=== PATIENT | male | born 1985 | race Caucasian/White ===

== ENCOUNTER 2018-12-11 10:34 | Emergency (ER) | payer OTHER, SELFPAY ==
--- NOTE | 2018-12-11 10:35 | ED.RN ---
PT BROUGHT TO ED BY [facility]S [facility]PART[facility] IN HANDCUFFS. DEPUTIES STATE THAT HE IS NO LONGER OURS, AND UNCUFF HIM. DEPUTIES BRING A PINK SLIP AND ASSESSMENT FROM THE [facility]SELING [facility] WITH THEM. PT DENIES SUICIDAL IDEATION, PT STATES I WAS SO HIGH WHEN I SAID THOSE THINGS. PT DENIES ANY MEDICAL CONCERNS, SUICIDAL IDEATIONS, OR AUDITORY/VISUAL HALLUCINATIONS. DEPUTIES LEFT, AND I INFORMED THE PATIENT TO WAIT UNTIL I CALL THE [facility] TO MAKE SURE THAT THEY HAVE NO FURTHER PLANS FOR HIM. PATIENT TOOK HIS BELONGINGS AND LEFT, VERIFIED WITH SECURITY THAT PATIENT WAS OFF THE PROPERTY. [facility] MADE AWARE THAT HE LEFT, [facility] STATED THAT THEY WOULD CALL THE PATIENT'S FAMILY TO SEE WHAT THEY WOULD LIKE TO DO. [facility] STATED THAT THEY WOULD CALL BACK TO LET US KNOW FURTHER DETAIL.
--- NOTE | 2018-12-11 14:25 | ED.RN ---
PER [facility], PT'S FAMILY WAS CONTACTED AND MADE AWARE THAT HE LEFT. THEY WILL CONTACT THE [facility] IF THEY SEE OR HEAR FROM HIM.
[2018-12-11 14:37] VITALS: TEMP -17.7; TEMP 0; BMI 26.6
== END 2018-12-11 14:37 | disposition left against medical advice (07) ==
LOC: ED 10:46
PROVIDERS: Emergency Provider Emergency Medicine; Family Provider Internal Medicine; PCP Internal Medicine
DX: R69 Illness, unspecified (principal)

== ENCOUNTER 2020-12-17 17:09 | Emergency (ER) | payer MEDICAID, SELFPAY ==
[2020-12-17 17:09] VITALS: BP 148/97; PULSE 100; RESP 16; TEMP 36.2; O2SAT 100; BMI 30.2
[2020-12-17 18:07] LABS: Absolute Lymphocyte Count 1.98 X10^3/uL (0.83-4.51); Absolute Neutrophil Count 2.2 X10^3/uL (2.0-7.7); Basophil# 0.04 X10^3/uL; Basophil% 0.9 % (0-1); Eosinophil# 0.09 X10^3/uL; Eosinophils% 1.9 % (0-5); Hematocrit 43.4 % (40-54); Hemoglobin 14.3 g/dL (13.0-16.5); Lymphocyte # 1.98 X10^3/ul (0.83-4.51); Lymphocyte % 42.3 % (19-41); Mean Corp Hgb Conc 32.9 g/dL (32-36); Mean Corpuscular Hgb 30.2 pg (27.0-32.0); Mean Corpuscular Volume 91.6 fL (80-94); Mean Platelet Vol. 10.9 fl (6.2-12.0); Monocyte# 0.37 X10^3/uL; Monocyte% 7.9 % (0-10); NRBC Flagged by Analyzer 0 % (0-5); Neutrophil # 2.18 X10^3/uL (2.7-7.7); Neutrophil % 46.6 % (47-70); Platelet Count 178 K/mm3 (150-450); RBC Distribution Width CV 13.1 % (11.6-14.6); Red Blood Count 4.74 M/mm3 (4.6-6.2); White Blood Count 4.7 K/mm3 (4.4-11.0)
[2020-12-17 18:19] LABS: Anion Gap 3 (5-15); BUN 11 mg/dL (7-18); BUN/Creat Ratio 13.5 RATIO (10-20); Calcium,Total 8.8 mg/dL (8.5-10.1); Chloride 107 mmol/L (98-107); Creatinine, Serum 0.81 mg/dL (0.70-1.30); EST Glomerular Filtration Rate 114 mL/min (>60); Est Glom Filt Rate - Afr Amer 138 mL/min (>60); Estimated Creatinine Clearance 124.86 ml/min; Glucose 140 mg/dL (74-106); Sodium Level 138 mmol/L (136-145)
--- NOTE | 2020-12-17 20:08 | CT_ITS ---
EXAM: CT ABDOMEN AND PELVIS WITHOUT INTRAVENOUS CONTRAST : 1985 CLINICAL INDICATION: Right flank pain TECHNIQUE: Helically acquired images were obtained of the abdomen and pelvis without intravenous contrast. This CT exam was performed using one or more of the following dose reduction techniques: automated exposure control, adjustment of the mA and/or kV according to patient size, and/or use of iterative reconstruction technique. This report was created using [employer] report generation technology. COMPARISON: None. FINDINGS: LOWER THORAX: Unremarkable. Lung bases are clear. No cardiomegaly. No significant pericardial effusion. ABDOMEN: LIVER: Unremarkable. Homogeneous. GALLBLADDER AND BILE DUCTS: Unremarkable. No calcified gallstones. No gallbladder distention or wall edema. No intra- or extrahepatic biliary ductal dilation. PANCREAS: Unremarkable. No focal cystic mass. SPLEEN: Unremarkable. Normal size without focal cystic or solid mass. ADRENALS: Unremarkable. No nodules. KIDNEYS AND URETERS: Unremarkable. Normal renal size and position. No hydronephrosis. STOMACH AND BOWEL: There is moderate amount of stool in colon which may represent constipation. No stomach or bowel distention. No focal inflammatory change. PELVIS: APPENDIX: No evidence of acute appendicitis. BLADDER: Unremarkable. REPRODUCTIVE: Unremarkable as visualized. No mass. ABDOMEN and PELVIS: INTRAPERITONEAL SPACE: Unremarkable. No ascites or other fluid collection. No free air. BONES/JOINTS: Unremarkable. No suspicious lytic or blastic abnormality. SOFT TISSUES: Unremarkable. No discrete abdominal or pelvic wall hernia. VASCULATURE: Unremarkable. Abdominal aorta is non-dilated. LYMPH NODES: Unremarkable. No enlarged lymph nodes. CT/Abdomen/Pelvis without Cont IMPRESSION: Moderate amount of stool in the colon which may represent constipation. No other acute abnormalities are identified. Individualized dose optimization techniques were used for this CT. at 2101 Reported and signed by: Howard Hooper MD Electronically Signed: Howard Hooper MD at 21:00 EDT Tel , Service support ,
--- NOTE | 2020-12-17 20:11 | EDS_ITS ---
HPI HPI - GI History of Present Illness Chief Complaint: Flank Pain Informant: patient Abdominal Pain/Flank Pain Onset: Weeks (1) Context: Gradual Onset Timing: Continuous Quality: - (Throbbing) Location: RLQ and Right Flank Worsened by: - (Standing) Relieved by: Nothing Nausea/Vomiting/Emesis GI Symptom: Negative for Nausea and Vomiting Diarrhea/Melena/Hematochezia GI Symptom: Negative for Diarrhea, Melena and Hematochezia Associated Symptoms Associated Symptoms: Positive for Frequency; Negative for Dysuria and Hematuria Narrative Narrative: Patient presents with right flank pain that has gradually gotten worse over the past week. Patient describes the pain as throbbing. Patient states pain started in his right flank radiates into his right abdomen. Patient states pain is worse with standing. Patient denies any nausea or vomiting. Patient denies any diarrhea, melena, or hematochezia. Patient states his last bowel movement was yesterday but it was smaller than normal. Patient admits to some urinary frequency. Patient also states he has been fatigued recently. Patient admits to subjective fevers and chills and sweats. PFSH PFSH Medical History (Updated 12/17/20 @ 21:[address] Eder Castro DO) Substance abuse Medical History no medical history no medical history Home Medications buprenorphine-naloxone [Zubsolv] 1 tab SUBLINGUAL DAILY 12/17/20 [History Last Taken Unknown] quetiapine 300 mg PO DAILY 12/17/20 [History Last Taken Unknown] quetiapine 600 mg PO QHS 12/17/20 [History Last Taken Unknown] Allergy/AdvReac Type Severity Reaction Status Date / Time No Known Allergies Allergy Verified 12/17/20 17:11 Surgical History (Updated 12/17/20 @ 20:[address] Eder Castro DO) Hx of hand surgery Social History Smoking Status: Current every day smoker tobacco type: cigarettes ROS ROS ED Constitutional Constitutional ED: Reports chills, fever(s), subjective and sweats Eyes Eyes: Denies blurry vision or change in vision ENT ENT ED: Denies rhinorrhea or sore throat Cardiovascular Cardiovascular: Denies chest pain or palpitations Respiratory/Chest Respiratory/Chest: Denies cough or dyspnea Gastrointestinal Gastrointestinal: Reports abdominal pain; Denies nausea or vomiting Genitourinary Genitourinary ED: Reports urinary frequency; Denies dysuria or hematuria Musculoskeletal Musculoskeletal: Reports back pain; Denies neck pain Integumentary Denies abscess or rash Neurologic Neurologic: Denies headache(s) or weakness Allergic/Immunologic Allergic/Immunologic ED: Denies mouth swelling or urticaria EXAM Physical Exam Const Vital Signs: 12/17/20 17:09 12/17/20 20:26 Temperature 97.2 F L 98.2 F Temperature Source Temporal Temporal Pulse Rate 100 87 Respiratory Rate 16 16 Blood Pressure 148/97 H 141/96 H Blood Pressure Mean 114 111 Pulse Ox 100 100 Oxygen Delivery Method Room Air Room Air Positive well nourished and well developed General Appearance ED: well developed HEENT Reports moist mucous membranes Neck supple and no JVD Resp normal respiratory effort and clear to auscultation bilaterally Cardio regular rate, regular rhythm and no murmurs GI normal to inspection, nondistended, normoactive bowel sounds and non-distended Auscultation: normoactive bowel sounds Palpation: soft and tender RLQ; Negative for guarding or rebound tenderness present Back/Spine General Back: CVA tenderness right Extremity normal to inspection General Extremety ED: Negative for edema or tenderness General Extremity: Negative for edema Neuro oriented x3, CN's II-XII intact bilaterally and no sensory deficits noted Sensorium / Orientation: alert Motor Exam: strength 5/5 throughout Psych mental status grossly normal Skin no rashes or lesions noted MDM MDM MDM Narrative Medical decision making narrative: CBC and basic metabolic profile were within normal limits. Urinalysis does not show any evidence of urinary tract infection or hematuria. CT scan of the abdomen pelvis was obtained. There is constipation but there is no evidence of bowel obstruction or ureteral calculus. There is no other acute abnormality noted. This was interpreted by the radiologist and reviewed by myself. Patient was advised of his findings. Kaur ent was instructed to use [id number] MiraLAX as needed. Patient was instructed to follow-up with his primary care physician in 5 to 7 days. Patient understood and was agreeable with the plan. All questions were answered. Lab Data Attestation: I reviewed the patient's lab results. Labs: Laboratory Results - last 24 hr 12/17/20 12/17/20 12/17/20 17:50 17:50 20:20 WBC 4.7 RBC 4.74 Hgb 14.3 Hct 43.4 MCV 91.6 MCH 30.2 MCHC 32.9 RDW Std Deviation 44.0 H RDW Coeff of Mook 13.1 Plt Count 178 MPV 10.9 Immature Gran % (Auto) 0.400 Neut % (Auto) 46.6 L Lymph % (Auto) 42.3 H Edmunds % (Auto) 7.9 Eos % (Auto) 1.9 Baso % (Auto) 0.9 Absolute Neuts (auto) 2.2 Absolute Lymphs (auto) 1.98 Nucleated RBC % 0 Sodium 138 Potassium 4.0 Chloride 107 Carbon Dioxide 28.0 Anion Gap 3 L BUN 11 Creatinine 0.81 Estim Creat Clear Calc 124.86 Est GFR (MDRD) Af Amer 138 Est GFR (MDRD) Non-Af 114 BUN/Creatinine Ratio 13.5 Glucose 140 H Calcium 8.8 Urine Color Yellow Urine Clarity Clear Urine pH 6.0 Ur Specific [place] 1.020 Urine Protein 15 H Urine Glucose (UA) Normal Urine Ketones Negative Urine Occult Blood Negative Urine Nitrite Negative Urine Bilirubin Negative Urine Urobilinogen 1 H Ur Leukocyte Esterase 25 H Urine RBC 0 SEEN Urine WBC 0-5 SEEN Ur Squamous Epith Cells 0 SEEN Urine Bacteria RARE Urine Mucus 0 SEEN Radiography Diagnostic Testing: Radiology Impression Abdomen/Pelvis CT 12/17/20 20:08 IMPRESSION: Moderate amount of stool in the colon which may represent constipation. No other acute abnormalities are identified. Individualized dose optimization techniques were used for this CT. at 2101 Reported and signed by: Howard Hooper MD Electronically Signed: Howard Hooper MD at 21:00 EDT Tel , Service support , Discharge Plan Triage Chief Complaint: Flank Pain ED Provider: Eder Castro Dx/Rx/DC Orders Clinical Impression: Constipation Instructions: ED Constipation (Adult) Prescriptions: No Action quetiapine 300 mg tablet 300 mg PO DAILY RF: 0 quetiapine 300 mg tablet 600 mg PO QHS RF: 0 Zubsolv 8.6-2.1 mg tablet, sublingual 1 tab SUBLINGUAL DAILY RF: 0 Stand Alone Forms: ED Work / School Excuse Primary Care Provider: Care Physician,No Primary Referrals: Elmer Aguirre MD [STAFF PHYSICIAN] - 5-7 Days Care Physician,No Primary [Primary Care Provider] - Disposition Disposition: Home, Self Care
[2020-12-17 20:26] VITALS: BP 141/96; PULSE 87; RESP 16; TEMP 36.8; O2SAT 100
[2020-12-17 20:28] LABS: Mucous, Urine 0 SEEN /hpf (<or=2+); Red Blood Cells-Urine 0 SEEN /hpf (0-5); Squamous Epithelial Cells - UA 0 SEEN /hpf (0-5)
[2020-12-17 20:32] LABS: Color, Urine Yellow (Yellow); Glucose, Dipstick Normal (Normal); Ketone-Dipstick Negative (Negative); Leukocyte Esterase-Dipstick 25 /ul (Negative); Nitrite-Dipstick Negative (Negative); Occult Blood-Urine Negative /ul (Negative); Protein-Dipstick 15 mg/dl (Negative); Urine Bilirubin Dipstick Negative (Negative); Urine Clarity Clear (Clear); Urine Urobilinogen 1 mg/dl (Normal)
[2020-12-17 20:57] LABS: Bacteria RARE /hpf (None Seen); White Blood Cells 0-5 SEEN /hpf (0-5)
== END 2020-12-17 21:49 | disposition home or self-care (01) ==
PROVIDERS: Emergency Provider Emergency Medicine
DX: K59.00 Constipation, unspecified (principal); F17.210 Nicotine dependence, cigarettes, uncomplicated
CPT/HCPCS: 74176; 80048; 81001; 85025; 99283; A4216

== ENCOUNTER 2021-01-03 14:09 | Emergency (ER) | payer MEDICAID, SELFPAY ==
[2021-01-03 14:09] VITALS: BP 136/84; PULSE 125; RESP 20; TEMP 36; O2SAT 97; BMI 31.4
--- NOTE | 2021-01-03 15:04 | EX.ED.DYSGE1 ---
HPI History of Present Illness Chief Complaint: General Illness Informant: patient Narrative Narrative: 35-year-old male states that yesterday he began to experience hot and cold flashes sweats mild cough dry mouth and notes that things are not tasting like they should. He denies any nausea diarrhea or shortness of breath. He is unvaccinated against COVID-19 [facility] Medical History (Updated 01/03/21 @ 16:[address] Jose G Arenas DO) Hepatitis C Substance abuse Home Medications buprenorphine-naloxone [Zubsolv] 1 tab SUBLINGUAL DAILY 12/17/20 [History Last Taken Unknown] quetiapine 300 mg PO DAILY 12/17/20 [History Last Taken Unknown] quetiapine 600 mg PO QHS 12/17/20 [History Last Taken Unknown] Allergy/AdvReac Type Severity Reaction Status Date / Time No Known Allergies Allergy Verified 01/03/21 15:43 Surgical History Hx of hand surgery Social History (Updated 01/03/21 @ 15:[address] Jose G Arenas DO) Smoking Status: Current every day smoker tobacco type: cigarettes substance use type: former substance user and opiates ROS ROS ED ROS Narrative Fatigue Constitutional Constitutional ED: Reports chills, subjective and sweats; Denies weight loss Eyes Eyes: Denies change in vision or diplopia ENT ENT ED: Reports other Details: Dry mouth change in taste ; Denies ear pain, rhinorrhea or sore throat Cardiovascular Cardiovascular: Denies chest pain, orthopnea, palpitations or racing heartbeat Respiratory/Chest Respiratory/Chest: Denies cough, dyspnea or orthopnea Gastrointestinal Gastrointestinal: Denies abdominal pain, diarrhea, nausea or vomiting Genitourinary Genitourinary ED: Denies dysuria, hematuria or urinary frequency Musculoskeletal Musculoskeletal: Denies arthralgias or myalgias Integumentary Denies abscess or rash Neurologic Neurologic: Denies headache(s) or weakness Psychiatric Psychiatric: Denies anxiety, depression, suicidal ideation or suicidal thoughts Endocrine Endocrinology: Denies polydipsia, polyphagia or polyuria Allergic/Immunologic Allergic/Immunologic ED: Denies mouth swelling, tongue swelling or urticaria EXAM Physical Exam Const Vital Signs: 01/03/21 14:09 Temperature 96.8 F L Temperature Source Temporal Pulse Rate 125 H Respiratory Rate 20 H Blood Pressure 136/84 H Blood Pressure Mean 101 Pulse Ox 97 Oxygen Delivery Method Room Air Positive well nourished, well developed and obese General Appearance ED: well developed Nutritional Appearance: obese HEENT Reports normocephalic, head/scalp atraumatic and moist mucous membranes Eyes PERRL and EOMs intact bilaterally Neck no lymphadenopathy, supple and no JVD Resp normal respiratory effort and clear to auscultation bilaterally Cardio regular rate and no murmurs Rate: tachycardic GI normal to inspection, nondistended, normoactive bowel sounds and non-tender Palpation: soft Back/Spine no CVA tenderness and normal ROM Extremity normal to inspection General Extremety ED: Negative for edema General Extremity: Negative for edema Neuro oriented x3 and CN's II-XII intact bilaterally Sensorium / Orientation: alert Motor Exam: strength 5/5 throughout Psych mental status grossly normal Mood & Affect: Negative for depressed or tearful Skin no rashes or lesions noted and no wounds MDM MDM MDM Narrative Medical decision making narrative: Rapid Covid is negative. Patient was advised that this may be a false negative as he is very early on in his symptomology. He was advised that he should monitor himself and avoid close contact. Return if worsening or concerns Discharge Plan Triage Chief Complaint: General Illness ED Provider: Jose G Arenas Dx/Rx/DC Orders Clinical Impression: Acute viral syndrome Instructions: ED Viral Syndrome (Adult) Prescriptions: No Action quetiapine 300 mg tablet 300 mg PO DAILY RF: 0 quetiapine 300 mg tablet 600 mg PO QHS RF: 0 Zubsolv 8.6-2.1 mg tablet, sublingual 1 tab SUBLINGUAL DAILY RF: 0 Primary Care Provider: Care Physician,No Primary Referrals: Sujata Regan MD [STAFF PHYSICIAN] - As Needed (for primary care) Care Physician,No Primary [Primary Care Provider] - Disposition Disposition: Home, Self Care
== END 2021-01-03 16:20 | disposition home or self-care (01) ==
PROVIDERS: Emergency Provider Emergency Medicine
DX: B34.9 Viral infection, unspecified (principal); F17.210 Nicotine dependence, cigarettes, uncomplicated; E66.9 Obesity, unspecified
CPT/HCPCS: 87426; 99282

== ENCOUNTER 2021-03-23 08:23 | Emergency (ER) | payer MEDICAID, SELFPAY ==
[2021-03-23 08:24] VITALS: BP 164/95; PULSE 116; RESP 16; TEMP 37.1; O2SAT 96; BMI 31.9
--- NOTE | 2021-03-23 09:20 | EX.ED.DYSGE1 ---
HPI History of Present Illness Chief Complaint: General Illness Informant: patient Narrative Narrative: Patient presents with about 3 days of nasal congestion, mild sore throat, he is developing a very slight cough but is not short of breath. No sputum production. No nausea vomiting diarrhea. He still has taste and smell. He has minimal headache. He does have slight myalgias. He did not get Covid vaccine. He has been around people at work who he is pretty sure have had Covid. PFSH PFSH Medical History Hepatitis C Substance abuse Home Medications buprenorphine-naloxone [Zubsolv] 1 tab SUBLINGUAL DAILY 12/17/20 [History Last Taken Unknown] quetiapine 300 mg PO DAILY 12/17/20 [History Last Taken Unknown] quetiapine 600 mg PO QHS 12/17/20 [History Last Taken Unknown] Allergy/AdvReac Type Severity Reaction Status Date / Time No Known Allergies Allergy Verified 03/23/21 08:27 Surgical History Hx of hand surgery Social History Smoking Status: Current every day smoker tobacco type: cigarettes substance use type: former substance user and opiates ROS ROS ED Constitutional Constitutional ED: Reports chills ENT ENT ED: Reports rhinorrhea and sore throat Cardiovascular Cardiovascular: Denies chest pain or palpitations Respiratory/Chest Respiratory/Chest: Reports cough; Denies dyspnea or sputum Gastrointestinal Gastrointestinal: Denies diarrhea, nausea or vomiting Genitourinary Genitourinary ED: Denies dysuria Musculoskeletal Musculoskeletal: Reports myalgias Integumentary Denies rash Neurologic Neurologic: Reports headache(s); Denies paresthesias or weakness Endocrine Endocrinology: Denies polydipsia or polyuria Allergic/Immunologic Allergic/Immunologic ED: Denies mouth swelling or urticaria EXAM Physical Exam Const Vital Signs: 03/23/21 08:24 03/23/21 08:37 Temperature 98.8 F Temperature Source Oral Pulse Rate 116 H Respiratory Rate 16 Respiratory Effort Normal Non-Labored Respiratory Pattern Irregular Blood Pressure 164/95 H Blood Pressure Mean 118 Pulse Ox 96 Oxygen Delivery Method Room Air Positive well nourished and well developed General Appearance ED: well developed and NAD; Negative for cyanotic or diaphoretic HEENT Reports moist mucous membranes HEENT Narrative: Oropharynx is clear. There is no exudate. Swallowing is normal. Negative for trauma Eyes EOMs intact bilaterally Neck no lymphadenopathy, supple and no JVD Chest Wall inspection of chest normal Resp normal respiratory effort and clear to auscultation bilaterally Effort and Inspection: Negative for pain with movement Auscultation: Negative for rales, rhonchi or wheezes Cardio regular rate and regular rhythm Rate: other Other Details: Heart rate is actually regular at this time. His rate is about 85-90 while sitting on the side of the bed. GI normal to inspection, nondistended, normoactive bowel sounds and non-tender Palpation: soft Back/Spine no CVA tenderness Extremity normal to inspection General Extremety ED: Negative for edema or tenderness General Extremity: Negative for edema Neuro Sensorium / Orientation: alert Psych mental status grossly normal Skin no rashes or lesions noted MDM MDM MDM Narrative Medical decision making narrative: Patient's Covid antigen test is negative. I explained to the patient that this can miss up to 15% of Covid positive people. He should return if he develops dyspnea, worsening fevers or other concerning symptoms. He should still distance himself from others and limit contact. Lab Data Attestation: I reviewed the patient's lab results. Discharge Plan Triage Chief Complaint: General Illness ED Provider: Ervin Croft Dx/Rx/DC Orders Clinical Impression: URI (upper respiratory infection) Instructions: ED URI, Viral, No Abx (Adult) Prescriptions: No Action quetiapine 300 mg tablet 300 mg PO DAILY RF: 0 quetiapine 300 mg tablet 600 mg PO QHS RF: 0 Zubsolv 8.6-2.1 mg tablet, sublingual 1 tab SUBLINGUAL DAILY RF: 0 Primary Care Provider: Care Physician,No Primary Referrals: Lauri Krueger DO [STAFF PHYSICIAN] - 3-5 Days if not improving Care Physician,No Primary [Primary Care Provider] - Disposition Disposition: Home, Self Care
== END 2021-03-23 10:34 | disposition home or self-care (01) ==
PROVIDERS: Emergency Provider Emergency Medicine
DX: J06.9 Acute upper respiratory infection, unspecified (principal); F17.210 Nicotine dependence, cigarettes, uncomplicated; Z79.899 Other long term (current) drug therapy
CPT/HCPCS: 87426; 99282

== ENCOUNTER 2021-05-10 14:31 | Emergency (ER) | payer MEDICAID, SELFPAY ==
[2021-05-10 14:31] VITALS: BP 150/81; PULSE 102; RESP 15; TEMP 36.3; O2SAT 98; BMI 32.1
--- NOTE | 2021-05-10 15:16 | EX.ED.DYSGE1 ---
HPI History of Present Illness Chief Complaint: Ear Problem Informant: patient Onset/Context/Timing Onset: Days (5 to 6 days) Context: Gradual Onset Current Severity: Mild Maximum Severity: Moderate Narrative Narrative: Patient presents with left ear pain. He states he feels like his ear is blocked. It started after he cleaned his ear out with a Q-tip. He thought he had pushed some wax back next to the eardrum. He tried rinsing it out with hydrogen peroxide. He was seen at urgent care on Tuesday and told he had swimmer's ear. He was given some eardrops. He presents today because he has not noticed any improvement. He denies other URI symptoms. [facility] Medical History Hepatitis C Substance abuse Home Medications buprenorphine-naloxone [Zubsolv] 1 tab SUBLINGUAL DAILY 12/17/20 [History Last Taken Unknown] quetiapine 300 mg PO DAILY 12/17/20 [History Last Taken Unknown] quetiapine 600 mg PO QHS 12/17/20 [History Last Taken Unknown] amoxicillin-pot clavulanate 1 tab PO BID #20 tab 05/10/21 [Rx Last Taken Unknown] Allergy/AdvReac Type Severity Reaction Status Date / Time No Known Allergies Allergy Verified 05/10/21 14:34 Surgical History Hx of hand surgery Social History Smoking Status: Current every day smoker tobacco type: cigarettes substance use type: former substance user and opiates ROS ROS ED Constitutional Constitutional ED: Denies chills or fever(s) Eyes Eyes: Denies change in vision ENT ENT ED: Reports ear pain left; Denies sore throat Cardiovascular Cardiovascular: Denies chest pain Respiratory/Chest Respiratory/Chest: Denies cough or dyspnea Gastrointestinal Gastrointestinal: Denies abdominal pain, nausea or vomiting Genitourinary Genitourinary ED: Denies dysuria Musculoskeletal Musculoskeletal: Denies back pain or neck pain Integumentary Denies rash Neurologic Neurologic: Denies headache(s) or weakness Allergic/Immunologic Allergic/Immunologic ED: Denies urticaria EXAM Physical Exam Const Vital Signs: 05/10/21 14:31 Temperature 97.4 F L Temperature Source Temporal Pulse Rate 102 H Respiratory Rate 15 Blood Pressure 150/81 H Blood Pressure Mean 104 Pulse Ox 98 Oxygen Delivery Method Room Air Positive well nourished and well developed General Appearance ED: well developed HEENT HEENT Narrative: Yellow fluid behind the TM on the left. Canal normal. Eyes PERRL and EOMs intact bilaterally Neck no lymphadenopathy and supple Chest Wall inspection of chest normal and palpation of chest normal Resp normal respiratory effort and clear to auscultation bilaterally Cardio regular rate and regular rhythm GI non-tender Palpation: soft Neuro oriented x3 Sensorium / Orientation: alert Psych mental status grossly normal Skin no rashes or lesions noted MDM MDM Treatment and Re-Evaluation Comments:: Patient has evidence of otitis media. He will treat with a course of Augmentin, first dose given here. Referred to Dr. Alfred, rupal on no doc list for follow-up. Discharge Plan Triage Chief Complaint: Ear Problem ED Provider: Danielle Hackett Dx/Rx/DC Orders Clinical Impression: Otitis media Instructions: ED Otitis Media Antibiotic ... Prescriptions: New amoxicillin-pot clavulanate 875-125 mg tablet 1 tab PO BID Qty: 20 RF: 0 No Action quetiapine 300 mg tablet 300 mg PO DAILY RF: 0 quetiapine 300 mg tablet 600 mg PO QHS RF: 0 Zubsolv 8.6-2.1 mg tablet, sublingual 1 tab SUBLINGUAL DAILY RF: 0 Stand Alone Forms: ED Work / School Excuse Primary Care Provider: Care Physician,No Primary Referrals: Deja Alfred DO [STAFF PHYSICIAN] - 1-2 Weeks Care Physician,No Primary [Primary Care Provider] - Disposition Disposition: Home, Self Care
[2021-05-10] MEDS: Amox/Clavulanate 875 MG Tablet PO (15:45)
== END 2021-05-10 23:59 | disposition home or self-care (01) ==
PROVIDERS: Emergency Provider Emergency Medicine; Visit Provider Emergency Medicine
DX: H66.92 Otitis media, unspecified, left ear (principal); F17.210 Nicotine dependence, cigarettes, uncomplicated
CPT/HCPCS: 99283

== ENCOUNTER 2021-10-13 13:21 | Emergency (ER) | payer MEDICAID, SELFPAY ==
[2021-10-13 13:22] VITALS: BP 140/83; PULSE 112; RESP 18; TEMP 36.7; O2SAT 97; BMI 30.4
--- NOTE | 2021-10-13 13:32 | EKG12_ITS ---
Test Reason : CP Blood Pressure : / mmHG Vent. Rate : 096 BPM Atrial Rate : 096 BPM P-R Int : 162 ms QRS Dur : 080 ms QT Int : 358 ms P-R-T Axes : 042 039 025 degrees QTc Int : 452 ms Normal sinus rhythm Nonspecific T wave abnormality Abnormal ECG Confirmed by MORA NGUYEN, VIRAJ ([id number]), photograph editor YAZ LUDWIG ([id number]) on 10/16/2021 7:57:34 AM Referred By: Vicente Confirmed By:VIRAJ VELAZCO MD
--- NOTE | 2021-10-13 13:34 | ED.VIS.CHEST ---
HPI <Dr. Vickie Zhang DO - Last Filed: 10/14/21 10:28> History of Present Illness Chief Complaint: Chest Pain Informant: patient Narrative Narrative: Patient is a 35-year-old male with history of opioid dependency currently on buprenorphine/naloxone presenting from work via EMS for chest pain. Patient states he developed what he felt to be heartburn prior to this starting. He then does developed pressure in his left chest that is intermittent. He states it radiates to his shoulder. It last for 4 to 5 minutes at a time. It sharp and dull. Denies associated diaphoresis, nausea, vomiting or symptoms. Is never anything like this before. Does have a very strong history of coronary artery disease and his family. States his mom started having heart problems when she was in her 30s. States he just wanted make sure he was not having a heart attack. Did receive aspirin and nitro in route via EMS. States he thinks he is feeling better now. Notes that he does not have AC with work and has been hot. Prior Similar Symptoms: No Recent Illness/Hospitalization: No CVD Risk Factors: Positive for Family History 1' </=55 PE Risk Factors: Negative for Recent Travel/Surgery, Recent Immobilization, Prior DVT or PE, Cancer or OCP + Smoking + >/=35 PFSH <Dr. Vickie Zhang DO - Last Filed: 10/14/21 10:28> PFSH Medical History Hepatitis C Substance abuse Home Medications buprenorphine 8.6 mg-naloxone 2.1 mg sublingual tablet (Zubsolv) 1 tab sublingual DAILY 12/17/20 [History Last Taken Unknown] quetiapine 300 mg tablet 300 mg PO TID 12/17/20 [History Last Taken Unknown] Allergy/AdvReac Type Severity Reaction Status Date / Time No Known Allergies Allergy Verified 10/13/21 13:26 Surgical History Hx of hand surgery Social History Smoking Status: Current every day smoker tobacco type: cigarettes substance use type: former substance user and opiates ROS <Dr. Vickie Zhang DO - Last Filed: 10/14/21 10:28> ROS ED Constitutional Constitutional ED: Denies chills, fever(s) or sweats Eyes Eyes: Denies change in vision ENT ENT ED: Denies rhinorrhea or sore throat Cardiovascular Cardiovascular: Reports chest pain; Denies palpitations or racing heartbeat Respiratory/Chest Respiratory/Chest: Denies cough or dyspnea Gastrointestinal Gastrointestinal: Denies abdominal pain, nausea or vomiting Genitourinary Genitourinary ED: Denies dysuria Musculoskeletal Musculoskeletal: Denies arthralgias or myalgias Integumentary Denies rash Neurologic Neurologic: Denies headache(s) or weakness Psychiatric Psychiatric: Denies anxiety EXAM <Dr. Vickie Zhang, DO - Last Filed: 10/14/21 10:28> Physical Exam Const Vital Signs: 10/13/21 13:22 10/13/21 13:27 10/13/21 13:32 Temperature 98.0 F Temperature Source Temporal Pulse Rate 112 H Respiratory Rate 18 Respiratory Effort Normal Non-Labored Blood Pressure 140/83 H Blood Pressure Mean 102 Pulse Ox 97 Oxygen Delivery Method Room Air Room Air 10/13/21 14:21 10/13/21 15:00 10/13/21 16:00 Temperature Temperature Source Pulse Rate 76 75 76 Respiratory Rate 14 16 20 H Respiratory Effort Blood Pressure 130/78 H 129/87 H 128/93 H Blood Pressure Mean 95 101 104 Pulse Ox 99 100 99 Oxygen Delivery Method Room Air Room Air Room Air 10/13/21 17:00 10/13/21 17:41 Temperature Temperature Source Pulse Rate 77 Respiratory Rate 18 18 Respiratory Effort Blood Pressure 144/88 H Blood Pressure Mean 106 Pulse Ox 99 Oxygen Delivery Method Room Air Positive well nourished and well developed General Appearance ED: well developed and NAD HEENT Reports moist mucous membranes normocephalic and atraumatic Eyes PERRL and EOMs intact bilaterally Neck supple Chest Wall inspection of chest normal and palpation of chest normal Chest Narrative: No reproducible tenderness to palpation Resp normal respiratory effort and clear to auscultation bilaterally Auscultation: Negative for rhonchi or wheezes Cardio regular rhythm and no murmurs Rate: tachycardic GI normal to inspection, nondistended, normoactive bowel sounds, soft to palpation and non-tender Back/Spine no CVA tenderness Extremity normal to inspection General Extremety ED: Negative for edema or pulses abnormal General Extremity: Negative for edema or pulses abnormal Neuro oriented x3 Motor Exam: Negative for general weakness Psych mental status grossly normal Skin no rashes or lesions noted <Dr. Rob Perry, DO - Last Filed: 10/13/21 17:16> Physical Exam Const Vital Signs: 10/13/21 13:22 10/13/21 13:27 10/13/21 13:32 Temperature 98.0 F Temperature Source Temporal Pulse Rate 112 H Respiratory Rate 18 Respiratory Effort Normal Non-Labored Blood Pressure 140/83 H Blood Pressure Mean 102 Pulse Ox 97 Oxygen Delivery Method Room Air Room Air 10/13/21 14:21 10/13/21 15:00 10/13/21 16:00 Temperature Temperature Source Pulse Rate 76 75 76 Respiratory Rate 14 16 20 H Respiratory Effort Blood Pressure 130/78 H 129/87 H 128/93 H Blood Pressure Mean 95 101 104 Pulse Ox 99 100 99 Oxygen Delivery Method Room Air Room Air Room Air 10/13/21 17:00 10/13/21 17:41 Temperature Temperature Source Pulse Rate 77 Respiratory Rate 18 18 Respiratory Effort Blood Pressure 144/88 H Blood Pressure Mean 106 Pulse Ox 99 Oxygen Delivery Method Room Air <Dr. Vickie Zhang, DO - Last Filed: 10/14/21 10:28> Heart Score History: Slightly/Non-Suspicious Age: </= 43 years Risk Factors: 1 or 2 Risk Factors Troponin: </= Normal Limit Score: 1 <Dr. Rob Perry, DO - Last Filed: 10/13/21 17:16> Heart Score Score: 1 MDM <Dr. Vickie Zhang, DO - Last Filed: 10/14/21 10:28> MDM MDM Narrative Medical decision making narrative: Patient is evaluated for intermittent chest pain. On the left upper chest. Vital signs are significant for tachycardia. He has no other risk factors for PE and will obtain a D-dimer. Will obtain delta high-sensitivity troponins. Lab Data Attestation: I reviewed the patient's lab results. Lab results narrative: Patient is evaluated with intermittent chest pain. Started this morning. Currently is relatively asymptomatic. Is tachycardic upon arrival but that improved with IV fluids. His only risk factor for PE is his tachycardia so D-dimer was obtained. This is normal at 0.30. High since he troponin initially is less than 3. TSH is normal. Chest x-ray interpreted myself as well as radiology is normal. Will obtain repeat high-sensitivity troponin because of the intermittent nature and sudden onset of his symptoms. Anticipate if this is normal patient can be discharged home with outpatient follow-up. Is given referral for primary care doctor as he does not currently follow with 1. This time I do not think he requires admission for his chest pain. Labs: Laboratory Results - last 24 hr 10/13/21 10/13/21 10/13/21 13:05 13:05 13:05 WBC 7.0 RBC 4.39 L Hgb 13.6 Hct 39.2 L MCV 89.3 MCH 31.0 MCHC 34.7 RDW Std Deviation 41.8 RDW Coeff of Mook 12.8 Plt Count 183 MPV 11.3 Immature Gran % (Auto) 0.300 Neut % (Auto) 50.6 Lymph % (Auto) 38.4 [place] % (Auto) 8.3 Eos % (Auto) 2.0 Baso % (Auto) 0.4 Absolute Neuts (auto) 3.5 Absolute Lymphs (auto) 2.68 Nucleated RBC % 0 D-Dimer Quant (PE/DVT) 0.30 Sodium 137 Potassium 3.9 Chloride 104 Carbon Dioxide 28.0 Anion Gap 5 BUN 18 Creatinine 0.90 Estim Creat Clear Calc 108.72 Est GFR (MDRD) Af Amer 121 Est GFR (MDRD) Non-Af 100 BUN/Creatinine Ratio 20.0 Glucose 134 H Calcium 9.2 Magnesium 2.1 Troponin I High Sens < 3 L TSH 2.95 10/13/21 16:22 WBC RBC Hgb Hct MCV MCH MCHC RDW Std Deviation RDW Coeff of Mook Plt Count MPV Immature Gran % (Auto) Neut % (Auto) Lymph % (Auto) [place] % (Auto) Eos % (Auto) Baso % (Auto) Absolute Neuts (auto) Absolute Lymphs (auto) Nucleated RBC % D-Dimer Quant (PE/DVT) Sodium Potassium Chloride Carbon Dioxide Anion Gap BUN Creatinine Estim Creat Clear Calc Est GFR (MDRD) Af Amer Est GFR (MDRD) Non-Af BUN/Creatinine Ratio Glucose Calcium Magnesium Troponin I High Sens < 3 L TSH Radiography Chest X-Ray - ED: 1 View, Read by ED Physician, Read by Radiologist and No Acute Disease Diagnostic Testing: Clinical Impression(s) from Imaging Studies Chest X-Ray 10/13/21 13:42 IMPRESSION: Normal x-ray examination of the chest. Electronically Signed: Mario Morris MD at 14:03 EDT , Rhythm Strip Rhythm Strip: Sinus Rhythm Rate: 96 Ectopy: None EKG Initial EKG: Attestation: I personally reviewed and interpreted this EKG as follows: Interpretation: Sinus Rhythm Comments: Normal sinus rhythm at a rate of 96 Normal axis Normal intervals Normal ST segments Prior EKG tracings: available for review Prior: Unchanged <Dr. Rob Perry, DO - Last Filed: 10/13/21 17:16> [facility] Lab Data Lab results narrative: Patient is evaluated with intermittent chest pain. Started this morning. Currently is relatively asymptomatic. Is tachycardic upon arrival but that improved with IV fluids. His only risk factor for PE is his tachycardia so D-dimer was obtained. This is normal at 0.30. High since he troponin initially is less than 3. TSH is normal. Chest x-ray interpreted myself as well as radiology is normal. Will obtain repeat high-sensitivity troponin because of the intermittent nature and sudden onset of his symptoms. Anticipate if this is normal patient can be discharged home with outpatient follow-up. Is given referral for primary care doctor as he does not currently follow with 1. This time I do not think he requires admission for his chest pain. Patient signed out to me pending delta troponin. I did review the patient's work-up and agree with previous ED physician. Delta troponin returned at less than 3. Given this I feel the patient safe for discharge. He was counseled of this and return precautions were given. Patient stable discharge. Impression: 1. Chest pain Labs: Laboratory Results - last 24 hr 10/13/21 10/13/21 10/13/21 13:05 13:05 13:05 WBC 7.0 RBC 4.39 L Hgb 13.6 Hct 39.2 L MCV 89.3 MCH 31.0 MCHC 34.7 RDW Std Deviation 41.8 RDW Coeff of Mook 12.8 Plt Count 183 MPV 11.3 Immature Gran % (Auto) 0.300 Neut % (Auto) 50.6 Lymph % (Auto) 38.4 [place] % (Auto) 8.3 Eos % (Auto) 2.0 Baso % (Auto) 0.4 Absolute Neuts (auto) 3.5 Absolute Lymphs (auto) 2.68 Nucleated RBC % 0 D-Dimer Quant (PE/DVT) 0.30 Sodium 137 Potassium 3.9 Chloride 104 Carbon Dioxide 28.0 Anion Gap 5 BUN 18 Creatinine 0.90 Estim Creat Clear Calc 108.72 Est GFR (MDRD) Af Amer 121 Est GFR (MDRD) Non-Af 100 BUN/Creatinine Ratio 20.0 Glucose 134 H Calcium 9.2 Magnesium 2.1 Troponin I High Sens < 3 L TSH 2.95 10/13/21 16:22 WBC RBC Hgb Hct MCV MCH MCHC RDW Std Deviation RDW Coeff of Mook Plt Count MPV Immature Gran % (Auto) Neut % (Auto) Lymph % (Auto) [place] % (Auto) Eos % (Auto) Baso % (Auto) Absolute Neuts (auto) Absolute Lymphs (auto) Nucleated RBC % D-Dimer Quant (PE/DVT) Sodium Potassium Chloride Carbon Dioxide Anion Gap BUN Creatinine Estim Creat Clear Calc Est GFR (MDRD) Af Amer Est GFR (MDRD) Non-Af BUN/Creatinine Ratio Glucose Calcium Magnesium Troponin I High Sens < 3 L TSH Radiography Diagnostic Testing: Clinical Impression(s) from Imaging Studies Chest X-Ray 10/13/21 13:42 IMPRESSION: Normal x-ray examination of the chest. Electronically Signed: Mario Morris MD at 14:03 EDT , Discharge Plan Triage Chief Complaint: Chest Pain ED Provider: Vickie Zhang Dx/Rx/DC Orders Clinical Impression: Chest pain Instructions: ED Chest Pain, Uncertain Cause Prescriptions: No Action quetiapine 300 mg tablet 300 mg PO TID Label Comments: Take 1 (ONE) tab BY MOUTH EVERY MORNING and 2 (TWO) tabs BY MOUTH EVERY DAY AT BEDTIME Zubsolv 8.6-2.1 mg tablet, sublingual 1 tab SUBLINGUAL DAILY Label Comments: Dissolve 1 tablet under the tongue once daily. Primary Care Provider: Care Physician,Brittany Primary Referrals: Lauri Krueger DO [STAFF PHYSICIAN] - As Needed Esther Rich [NON-STAFF] - As Needed Care Physician,No Primary [Primary Care Provider] - Disposition Disposition: Home, Self Care Discharge Date/Time: 10/13/21 17:41
[2021-10-13 13:42] LABS: Absolute Lymphocyte Count 2.68 X10^3/uL (0.83-4.51); Absolute Neutrophil Count 3.5 X10^3/uL (2.0-7.7); Basophil# 0.03 X10^3/uL; Basophil% 0.4 % (0-1); Eosinophil# 0.14 X10^3/uL; Hematocrit 39.2 % (40-54); Hemoglobin 13.6 g/dL (13.0-16.5); Lymphocyte # 2.68 X10^3/ul (0.83-4.51); Lymphocyte % 38.4 % (19-41); Mean Corp Hgb Conc 34.7 g/dL (32-36); Mean Corpuscular Volume 89.3 fL (80-94); Mean Platelet Vol. 11.3 fl (6.2-12.0); Monocyte# 0.58 X10^3/uL; Monocyte% 8.3 % (0-10); NRBC Flagged by Analyzer 0 % (0-5); Neutrophil # 3.53 X10^3/uL (2.7-7.7); Neutrophil % 50.6 % (47-70); Platelet Count 183 K/mm3 (150-450); RBC Distribution Width CV 12.8 % (11.6-14.6); RBC Distribution Width SD 41.8 fl (35.1-43.9); Red Blood Count 4.39 M/mm3 (4.6-6.2)
[2021-10-13] MEDS: 0.9% Normal Saline 1,000 ML 1000 ML IV (13:42)
--- NOTE | 2021-10-13 13:42 | RAD_ITS ---
STUDY: X-RAY CHEST REASON FOR EXAM: Male, 35 years old. Chest pain TECHNIQUE: Single AP portable view of the chest. COMPARISON: None. FINDINGS: EKG electrodes are seen. The lungs are clear and expanded. There is no demonstrated pleural abnormality. Normal size heart. Normal mediastinum and brock. Normal visualized pulmonary arteries. Normal visualized aortic arch and descending thoracic aorta. Normal visualized thoracic spine. Normal visualized ribs, clavicles, and shoulders. There is no demonstrated abnormality of the visualized soft tissue structures of the upper abdomen. RAD/Chest 1 View (Portable) IMPRESSION: Normal x-ray examination of the chest. Electronically Signed: Mario Morris MD at 14:03 EDT ,
[2021-10-13 14:07] LABS: Anion Gap 5 (5-15); BUN 18 mg/dL (7-18); Calcium,Total 9.2 mg/dL (8.5-10.1); Chloride 104 mmol/L (98-107); EST Glomerular Filtration Rate 100 mL/min (>60); Est Glom Filt Rate - Afr Amer 121 mL/min (>60); Estimated Creatinine Clearance 108.72 ml/min; Glucose 134 mg/dL (74-106); Magnesium 2.1 mg/dL (1.6-2.6); Potassium 3.9 mmol/L (3.5-5.1); Sodium Level 137 mmol/L (136-145); Thyroid Stim Hormone (TSH) 2.95 uIU/mL (0.358-3.74); Troponin-I HS (w/2H Reflex) < 3 pg/mL (3.0-78.0)
--- NOTE | 2021-10-13 14:11 | CM.ED ---
Social Work Note Reason for Referral: No PCP SW reviewed chart, pt has no PCP listed. SW in to speak with pt. Pt confirms he has no PCP. SW provided pt with PCP list/Healthcare Provider Directory. Mary Anne Alvarez LA[employer] CH[employer], [employer]GER
[2021-10-13 14:21] VITALS: BP 130/78; PULSE 76; RESP 14; O2SAT 99
[2021-10-13 15:00] VITALS: BP 129/87; PULSE 75; RESP 16; O2SAT 100
[2021-10-13 15:40] LABS: Reflex Troponin-HS? (from REC) Y
[2021-10-13 16:00] VITALS: BP 128/93; PULSE 76; RESP 20; O2SAT 99
[2021-10-13 17:00] VITALS: BP 144/88; PULSE 77; RESP 18; O2SAT 99
[2021-10-13 17:07] LABS: Troponin-I HS < 3 pg/mL (3.0-78.0)
[2021-10-13 17:41] VITALS: RESP 18
== END 2021-10-13 17:41 | disposition home or self-care (01) ==
PROVIDERS: Emergency Provider Emergency Medicine; Visit Provider Emergency Medicine
DX: R07.9 Chest pain, unspecified (principal); I25.10 Atherosclerotic heart disease of native coronary artery without angina pectoris; F17.210 Nicotine dependence, cigarettes, uncomplicated; Z79.899 Other long term (current) drug therapy
CPT/HCPCS: 71045; 80048; 83735; 84443; 84484; 85025; 85379; 93005; 96360; 99285; J7030; A4216

== ENCOUNTER → 2021-11-10 | Outpatient (CLI) | payer MEDICAID, SELFPAY ==
--- NOTE | 2021-11-10 07:37 | ECHOD_ITS ---
Reason For Study: CHEST PAIN Procedure This was a 2D Doppler, Color Flow transthoracic echocardiogram. The exam was of adequate technical quality. Exam performed in department. Left Ventricle Normal LV size. Left ventricular systolic function is normal. The estimated ejection fraction is 65 %. No evidence for diastolic dysfunction. No regional wall motion abnormalities noted. Right Ventricle Normal RV size. Normal systolic function. Atria Normal left atrium. Normal right atrium. No doppler evidence for ASD. Mitral Valve There is no mitral annular calcification. Normal mitral valve. Trivial mitral valve insufficiency. Tricuspid Valve Normal tricuspid valve. Trivial tricuspid valve insufficiency. Unable to estimate RV systolic pressure due to insufficient tricuspid regurgitant envelope. Aortic Valve Trisinus/trileaflet aortic valve. Normal aortic valve. Pulmonic Valve Normal pulmonic valve. Trivial pulmonic valve insufficiency. Great Vessels Normal sized aortic root. Pericardium/Pleural No pericardial effusion. MMode/2D Measurements & Calculations LVIDd: 5.0 cm IVSd: 0.97 cm Ao root diam: 3.1 cm LVIDs: 3.5 cm LVPWd: 0.96 cm RVDd: 3.8 cm FS: 30.1 % LAV(MOD-bp): 57.8 ml LA A4 area: 19.7 cm2 LA dimension(2D): 3.9 cm LAV(MOD-bp) Indexed: 28.6 ml/m2 LAV(MOD-sp2): 52.5 ml LAV(MOD-sp4): 52.6 ml RA A4 area: 15.8 cm2 Time Measurements MV dec time: 0.17 sec Doppler Measurements & Calculations MV E max silvino: 66.1 cm/sec Lat Peak E' Silvino: 13.9 cm/sec Med Peak E' Silvino: 11.2 cm/sec MV A max silvino: 57.5 cm/sec E/E' lat: 4.8 E/E' med: 5.9 MV E/A: 1.2 MV dec slope: 424.2 cm/sec2 Ao V2 max: 127.8 cm/sec LV V1 max: 112.2 cm/sec Ao max P.5 mmHg LV V1 max P.0 mmHg PA V2 max: 128.7 cm/sec ECHO/Echo Complete Interpretation Summary Left ventricular systolic function is normal. The estimated ejection fraction is 65 %. Trivial mitral valve insufficiency. Trivial tricuspid valve insufficiency. Trivial pulmonic valve insufficiency. Unable to estimate RV systolic pressure due to insufficient tricuspid regurgita nt envelope. No evidence for diastolic dysfunction. Ordering Physician: Femi Hobson Referring Physician: NO PCP Performed By: Matilde Gordillo, ETHAN, RVT
--- NOTE | 2021-11-10 09:30 | STRESSREP ---
Stress Test Report Date: 11-10-2021 Procedure: Exercise tolerance test/imaging study Indications: Chest pain Consent: Per the patient Procedure: The patient exercised on a Alvino protocol for 9 minutes completing Stage III achieving a peak heart rate of 153 bpm (83% predicted maximal heart rate) with a peak blood pressure 154/52 mmHg and a peak MET capacity of 10 METs. The baseline ECG demonstrated normal sinus rhythm; nonspecific T wave abnormality. The peak exercise ECG demonstrated somatic/motion artifact with continued nonspecific T wave abnormality. There were no cardiac dysrhythmias pretest, during exercise, or recovery. The functional capacity was considered good. There was no complaint of chest discomfort during exercise or recovery. The examination was discontinued secondary to dyspnea and leg fatigue. Impression: 1. Technically adequate (percent predicted maximal heart rate greater than 85%) exercise tolerance test 2. Peak exercise ECG with somatic/motion artifact with continued nonspecific T wave abnormality 3. There were no cardiac dysrhythmias pretest, during exercise, or recovery 4. Nuclear images pending Myocardial perfusion imaging study: Technique: The patient was injected with 13.9 mCi of technetium 99m Cardiolite and subsequently rest SPECT Cardiolite nuclear imaging was obtained in the horizontal long, vertical long, and short axis views. The patient exercised on a Alvino protocol for 9 minutes completing Stage III achieving a peak heart rate of 153 bpm (83% predicted maximal heart rate) with a peak blood pressure 154/52 mmHg and a peak MET capacity of 10 METs. The patient was injected with 43.3 mCi of technetium 99m Cardiolite and subsequently stress SPECT Cardiolite nuclear imaging was obtained in the horizontal long, vertical long, and short axis views. A gated Cardiolite study at peak stress was obtained. Interpretation: Rest and stress SPECT Cardiolite nuclear imaging status post realignment, normalization, and attenuation correction, demonstrates the appearance of relative uniform tracer uptake and myocardial perfusion appearing within normal limits. There is end systolic thickening and brightening. The gated Cardiolite study demonstrates myocardial thickening and inward wall motion. The reported LVEF is 67%. Impression: 1. Rest and stress SPECT Cardiolite nuclear imaging demonstrate relative uniform tracer uptake and myocardial perfusion appearing within normal limits. 2. The gated Cardiolite study reports an LVEF of 67%. This note was generated with [employer] software. It may contain incorrect words, spelling, and punctuation that were not noted in checking the note before signing.
== END | disposition home or self-care (01) ==
LOC: CVS 07:36
PROVIDERS: Visit Provider Internal Medicine Cardiovascular Disease
DX: R07.9 Chest pain, unspecified (principal); F17.200 Nicotine dependence, unspecified, uncomplicated; Z82.49 Family history of ischemic heart disease and other diseases of the circulatory system
CPT/HCPCS: 78452; 93017; 93306; A9500; A4216

== ENCOUNTER 2022-02-07 13:14 | Emergency (ER) | payer OTHER, MEDICAID, SELFPAY ==
[2022-02-07 13:15] VITALS: BP 164/86; PULSE 112; RESP 18; TEMP 36.6; O2SAT 99; BMI 32.6
--- NOTE | 2022-02-07 13:23 | EX.ED.GUMALE ---
HPI History of Present Illness Chief Complaint: Complaint Detail of Chief Complaint: Dysuria and frequency for 2 to 3 days Informant: patient Narrative Narrative: Patient presents to the emergency department with complaint of dysuria and frequency that he said for 2 to 3 days. Patient denies fever. Patient denies nausea or vomiting. He denies abdomen or back pain. Patient denies drainage from his penis and denies any exposures to STD and states that he has not been sexually active for over 6 months. Patient denies frequent urinary tract infections. Prior similar symptoms: No PFSH PFSH Medical History (Updated 02/07/22 @ 15:[address] Rosy Langley DO) chronic heroin use Family history of coronary artery disease Hepatitis C Substance abuse Home Medications quetiapine 300 mg tablet 300 mg PO TID 12/17/20 [History Last Taken Unknown] aspirin 325 mg tablet 325 mg PO DAILY #1 TAB 10/22/21 [Rx Last Taken Unknown] buprenorphine 11.4 mg-naloxone 2.9 mg sublingual tablet (Zubsolv) 1 tab sublingual DAILY 10/22/21 [History Last Taken Unknown] doxycycline monohydrate 100 mg capsule 100 mg PO BID #14 CAPSULES 02/07/22 [Rx Last Taken Unknown] Allergy/AdvReac Type Severity Reaction Status Date / Time No Known Allergies Allergy Verified 02/07/22 13:15 Family History (Updated 10/22/21 @ 14:27 by Nelda Gonzalez) Mother Heart disease Surgical History Hx of hand surgery Social History (Updated 10/22/21 @ 14:28 by Nelda Gonzalez) Smoking Status: Current every day smoker tobacco type: cigarettes alcohol intake: never substance use type: former substance user and opiates caffeine: Yes Type: carbonated beverages Number of servings: 4 ROS ROS ED Review of Systems ROS Unobtainable: other Constitutional Constitutional ED: Reports lethargy; Denies chills, fever(s), sweats or weight loss Eyes Eyes: Denies blurry vision, change in vision or diplopia ENT ENT ED: Denies rhinorrhea or sore throat Cardiovascular Cardiovascular: Denies chest pain, orthopnea or racing heartbeat Respiratory/Chest Respiratory/Chest: Denies cough, dyspnea, dyspnea on exertion, orthopnea or sputum Gastrointestinal Gastrointestinal: Denies abdominal pain, diarrhea, nausea or vomiting Genitourinary Genitourinary ED: Reports dysuria and urinary frequency; Denies hematuria Musculoskeletal Musculoskeletal: Denies arthralgias, back pain, myalgias or neck pain Integumentary Denies abscess, Abrasions or rash Neurologic Neurologic: Denies headache(s) or weakness Psychiatric Psychiatric: Denies anxiety, depression or suicidal thoughts Endocrine Endocrinology: Denies polydipsia, polyphagia or polyuria Hematologic/Lymphatic Hematologic/Lymphatic: Denies easy bleeding, easy bruising or lymphadenopathy Allergic/Immunologic Allergic/Immunologic ED: Denies mouth swelling, tongue swelling or urticaria EXAM Physical Exam Const Vital Signs: 02/07/22 13:15 Temperature 98 F Temperature Source Temporal Pulse Rate 112 H Respiratory Rate 18 Blood Pressure 164/86 H Blood Pressure Mean 112 Pulse Ox 99 Oxygen Delivery Method Room Air Positive well nourished and well developed General Appearance ED: well developed and NAD HEENT Reports TM's clear and moist mucous membranes normocephalic and atraumatic; Negative for trauma or tenderness Tympanic Membrane ED: Yes TM's clear Eyes PERRL and EOMs intact bilaterally General Eye ED: Negative for pale conjunctiva or scleral icterus Neck no lymphadenopathy, supple and no JVD General: Negative for tenderness Chest Wall inspection of chest normal and palpation of chest normal Chest: Negative for tenderness Resp normal respiratory effort and clear to auscultation bilaterally Effort and Inspection: Negative for respiratory distress or pain with movement Auscultation: Negative for rhonchi, wheezes or diminished lung sounds Cardio regular rate, regular rhythm, S1 normal heart sound, S2 normal heart sound and no murmurs Peripheral Pulses: pulses 2+ throughout GI normal to inspection, nondistended, normoactive bowel sounds, soft to palpation, non-tender, non-distended and no masses Back/Spine no CVA tenderness and no thoracic nor lumbar tenderness Extremity normal to inspection General Extremety ED: Negative for edema General Extremity: Negative for edema Neuro oriented x3, CN's II-XII intact bilaterally, no sensory deficits noted and gait normal Sensorium / Orientation: awake, alert, oriented to person, oriented to place and oriented to time Motor Exam: strength 5/5 throughout and strength abnormal Psych mental status grossly normal Skin no rashes or lesions noted and no wounds MDM MDM MDM Narrative Medical decision making narrative: Analysis was unremarkable. I did send off GC chlamydia cultures. Patient had a CT scan of the abdomen pelvis that was unremarkable without evidence of kidney stones or other acute disease process. This point etiology of his frequency and dysuria is unclear we will treat him with Rocephin and doxycycline to cover for urethritis. Patient will be given referral to primary care physician for follow-up in 3 to 5 days. Lab Data Attestation: I reviewed the patient's lab results. Labs: Laboratory Results - last 24 hr 02/07/22 13:30 Urine Color Yellow Urine Clarity Clear Urine pH 5.0 Ur Specific [place] 1.020 Urine Protein Negative Urine Glucose (UA) Normal Urine Ketones Negative Urine Occult Blood 10 H Urine Nitrite Negative Urine Bilirubin Negative Urine Urobilinogen Normal Ur Leukocyte Esterase Negative Urine RBC 0 SEEN Urine WBC 0 SEEN Ur Squamous Epith Cells 0 SEEN Urine Bacteria 0 SEEN Urine Mucus 0 SEEN Radiography Diagnostic Testing: Clinical Impression(s) from Imaging Studies Abdomen/Pelvis CT 02/07/22 14:10 IMPRESSION: (NOT LISTED IN ORDER OF SIGNIFICANCE) There are no acute findings. Other findings as above. Electronically Signed: Juancarlos Bonner MD at 15:00 EST Reading Location ID and State: [facility] / [place] , Service support , Discharge Plan Triage Chief Complaint: Complaint ED Provider: Rosy Langley Dx/Rx/DC Orders Clinical Impression: Dysuria Instructions: Dysuria, ED Pain, Acute, Uncertain Cause, ED STI Male Treated Prescriptions: New doxycycline monohydrate 100 mg capsule 100 mg PO BID Qty: 14 0RF No Action Zubsolv 11.4-2.9 mg tablet, sublingual 1 tab sublingual DAILY aspirin 325 mg tablet 325 mg PO DAILY Qty: 1 0RF quetiapine 300 mg tablet 300 mg PO TID Label Comments: Take 1 (ONE) tab BY MOUTH EVERY MORNING and 2 (TWO) tabs BY MOUTH EVERY DAY AT BEDTIME Primary Care Provider: Care Physician,No Primary Referrals: Lauri Krueger DO [Med Staff - Disposition Clerk] - 3-5 Days Care Physician,No Primary [Primary Care Provider] - Disposition Disposition: Home, Self Care
[2022-02-07 13:37] LABS: Bacteria 0 SEEN /hpf (None Seen); Mucous, Urine 0 SEEN /hpf (<or=2+); Red Blood Cells-Urine 0 SEEN /hpf (0-5); Squamous Epithelial Cells - UA 0 SEEN /hpf (0-5); White Blood Cells 0 SEEN /hpf (0-5)
[2022-02-07 13:44] LABS: Color, Urine Yellow (Yellow); Glucose, Dipstick Normal (Normal); Ketone-Dipstick Negative (Negative); Leukocyte Esterase-Dipstick Negative /ul (Negative); Nitrite-Dipstick Negative (Negative); Occult Blood-Urine 10 /ul (Negative); Protein-Dipstick Negative (Negative); Urine Bilirubin Dipstick Negative (Negative); Urine Clarity Clear (Clear); Urine Urobilinogen Normal (Normal)
--- NOTE | 2022-02-07 14:10 | CT_ITS ---
STUDY: CT Abdomen And Pelvis W/O Contrast Injection 02/07/2022 2:53 PM REASON FOR EXAM: Male, 36 years old. ABDOMINAL PAIN abdominal pain Technologist Notes PAINFUL/BURNING WITH URINATION, DECREASE IN OUTPUT X 3 DAYS, HEP C TECHNIQUE: Transaxial images were obtained without oral contrast, and without intravenous contrast. Individualized dose optimization techniques were used for this CT. COMPARISON: 12.17.20 FINDINGS: The visualized lung bases are unremarkable. The visualized portions of the heart are within normal limits. Unremarkable liver. Unremarkable gallbladder and extrahepatic biliary system. Unremarkable spleen. Unremarkable pancreas. Unremarkable bilateral adrenal glands. No acute findings of the right kidney. No acute findings of the left kidney. Unremarkable visualized stomach. Unremarkable small intestine. Unremarkable colon. The appendix is visualized and appears unremarkable. There are no acute findings of the abdominal aorta. Unremarkable inferior vena cava. Subcentimeter mesenteric lymph nodes. Unremarkable urinary bladder. There is an umbilical hernia containing fat. Unremarkable osseous structures. CT/Abdomen/Pelvis without Cont IMPRESSION: (NOT LISTED IN ORDER OF SIGNIFICANCE) There are no acute findings. Other findings as above. Electronically Signed: Juancarlos Bonner MD at 15:00 EST Reading Location ID and State: [facility] / [place] , Service support ,
[2022-02-07] MEDS: Ceftriaxone 500 MG Vial IM (15:53)
[2022-02-07 17:57] LABS: Chlamydia Trachomatis by PCR Negative (Negative); Neisserai gonorrhoeae by PCR Negative (Negative); Probe Check PASS; Sample Adequacy Control PASS; Specimen Processing Control PASS
== END 2022-02-07 16:15 | disposition home or self-care (01) ==
PROVIDERS: Emergency Provider Emergency Medicine; Visit Provider Emergency Medicine
DX: R30.0 Dysuria (principal); F17.210 Nicotine dependence, cigarettes, uncomplicated
CPT/HCPCS: 74176; 81001; 87491; 87591; 96372; 99282

== ENCOUNTER 2022-02-28 00:16 | Emergency (ER) | payer OTHER, MEDICAID, SELFPAY ==
[2022-02-28 00:17] VITALS: TEMP 37; BMI 35.0
[2022-02-28 00:22] VITALS: BP 154/106; PULSE 115; RESP 19; O2SAT 98
--- NOTE | 2022-02-28 00:23 | EKG12_ITS ---
Test Reason : SOB Blood Pressure : / mmHG Vent. Rate : 106 BPM Atrial Rate : 106 BPM P-R Int : 142 ms QRS Dur : 082 ms QT Int : 338 ms P-R-T Axes : 032 038 021 degrees QTc Int : 448 ms Sinus tachycardia Nonspecific T wave abnormality Abnormal ECG Confirmed by ESTHELA NGUYEN, SEA ([id number]), video editor KOKI SWANSON ([id number]) on 03/01/2022 10:01:25 AM Referred By: Confirmed By:SEA PROCTOR MD
--- NOTE | 2022-02-28 00:53 | RAD_ITS ---
EXAM: XR SOFT TISSUE NECK CLINICAL INDICATION: ? Epiglottitis TECHNIQUE: Frontal and lateral views of the soft tissues of the neck. This report was created using [employer] report generation technology. COMPARISON: None. FINDINGS: AIRWAY: Unremarkable. Grossly patent. BONES/JOINTS: Moderate degenerative disc disease at C5-6. SOFT TISSUES: Normal epiglottis. No radiopaque foreign body. RAD/Neck for Soft Tissue IMPRESSION: Normal epiglottis. No other findings to explain the clinical presentation. Electronically Signed: Isauro Roca MD at 2:12 EST ,
[2022-02-28 00:56] VITALS: O2SAT 97
[2022-02-28] MEDS: DiphenhydrAMINE 50 MG/ML Syringe IV (01:01)
[2022-02-28] MEDS: MethylPREDNISolone 125 MG/2 ML Vial IV (01:01)
[2022-02-28] MEDS: 0.9% Normal Saline 1,000 ML 999 ML IV (01:02)
[2022-02-28] MEDS: Racepinephrine HCl 0.5 ML VIAL.NEB. INHALATION (01:04)
--- NOTE | 2022-02-28 01:20 | RAD_ITS ---
EXAM: XR CHEST, 2 VIEWS CLINICAL INDICATION: dyspnea TECHNIQUE: Frontal and lateral views of the chest. This report was created using [employer] report generation technology. COMPARISON: 10/13/21 FINDINGS: LUNGS AND PLEURAL SPACES: Unremarkable. No consolidation or edema. No pneumothorax. No effusion. HEART: Unremarkable. Cardiac silhouette not enlarged. MEDIASTINUM: Central airways and mediastinal contour are unremarkable. BONES/JOINTS: Unremarkable. SOFT TISSUES: Unremarkable. RAD/Chest PA and Lateral IMPRESSION: No radiographic evidence of acute cardiopulmonary disease. Electronically Signed: Isauro Roca MD at 2:11 EST ,
[2022-02-28 01:28] LABS: Absolute Lymphocyte Count 2.62 X10^3/uL (0.83-4.51); Absolute Neutrophil Count 2.2 X10^3/uL (2.0-7.7); Basophil# 0.02 X10^3/uL; Basophil% 0.3 % (0-1); Eosinophil# 0.18 X10^3/uL; Eosinophils% 3.1 % (0-5); Hematocrit 39.1 % (40-54); Hemoglobin 13.1 g/dL (13.0-16.5); Lymphocyte # 2.62 X10^3/ul (0.83-4.51); Lymphocyte % 45.2 % (19-41); Mean Corp Hgb Conc 33.5 g/dL (32-36); Mean Corpuscular Hgb 29.6 pg (27.0-32.0); Mean Corpuscular Volume 88.5 fL (80-94); Mean Platelet Vol. 10.8 fl (6.2-12.0); Monocyte# 0.72 X10^3/uL; Monocyte% 12.4 % (0-10); NRBC Flagged by Analyzer 0 % (0-5); Neutrophil # 2.23 X10^3/uL (2.7-7.7); Neutrophil % 38.5 % (47-70); Platelet Count 174 K/mm3 (150-450); RBC Distribution Width CV 12.8 % (11.6-14.6); RBC Distribution Width SD 41.7 fl (35.1-43.9); Red Blood Count 4.42 M/mm3 (4.6-6.2); White Blood Count 5.8 K/mm3 (4.4-11.0)
[2022-02-28 01:38] LABS: Anion Gap 6 (5-15); BUN 14 mg/dL (7-18); BUN/Creat Ratio 15.2 RATIO (10-20); Calcium,Total 8.3 mg/dL (8.5-10.1); Chloride 110 mmol/L (98-107); Creatinine, Serum 0.92 mg/dL (0.70-1.30); EST Glomerular Filtration Rate 98 mL/min (>60); Est Glom Filt Rate - Afr Amer 118 mL/min (>60); Estimated Creatinine Clearance 105.33 ml/min; Glucose 135 mg/dL (74-106); Potassium 3.7 mmol/L (3.5-5.1); Sodium Level 141 mmol/L (136-145)
--- NOTE | 2022-02-28 02:57 | EX.ED.DYSGE1 ---
HPI History of Present Illness Chief Complaint: Shortness of Breath Narrative Narrative: Patient is a 36-year-old male with past medical history of hepatitis C and substance. He states he was sleeping when he awoke and felt like he could not breathe. He states this lasted for a few seconds and symptoms improved. However since that time he has felt like there has been throat swelling. He states that he has been able to tolerate his saliva and drink water without difficulty. He denies any fevers or chills but states that despite giving this a few hours to resolve at home has not done so and therefore he comes in for evaluation [facility] Medical History (Updated 02/28/22 @ 06:[address] Isauro Hernandes DO) chronic heroin use Family history of coronary artery disease Hepatitis C Substance abuse Home Medications quetiapine 300 mg tablet (Seroquel) 300 mg PO TID 12/17/20 [History Last Taken Unknown] buprenorphine 11.4 mg-naloxone 2.9 mg sublingual tablet (Zubsolv) 1 tab sublingual DAILY 10/22/21 [History Last Taken Unknown] aspirin 325 mg tablet (Shantell Aspirin) 325 mg PO DAILY 02/28/22 [History Last Taken Unknown] Allergy/AdvReac Type Severity Reaction Status Date / Time No Known Allergies Allergy Verified 02/28/22 00:23 Family History (Updated 10/22/21 @ 14:27 by Nelda Gonzalez) Mother Heart disease Surgical History Hx of hand surgery Social History (Updated 10/22/21 @ 14:28 by Nelda Gonzalez) Smoking Status: Current every day smoker tobacco type: cigarettes alcohol intake: never substance use type: former substance user and opiates caffeine: Yes Type: carbonated beverages Number of servings: 4 ROS ROS ED Constitutional Constitutional ED: Denies chills or fever(s) ENT ENT ED: Reports rhinorrhea and sore throat Cardiovascular Cardiovascular: Denies chest pain Respiratory/Chest Respiratory/Chest: Reports dyspnea; Denies cough Gastrointestinal Gastrointestinal: Denies abdominal pain, diarrhea, nausea or vomiting Genitourinary Genitourinary ED: Denies dysuria Musculoskeletal Musculoskeletal: Denies myalgias or neck pain Integumentary Denies rash Neurologic Neurologic: Denies headache(s) Psychiatric Psychiatric: Reports anxiety Hematologic/Lymphatic Hematologic/Lymphatic: Denies easy bleeding or easy bruising EXAM Physical Exam Const Vital Signs: 02/28/22 00:17 02/28/22 00:22 02/28/22 00:56 Temperature 98.6 F Temperature Source Temporal Pulse Rate 115 H Respiratory Rate 19 H Respiratory Effort Normal Non-Labored Respiratory Depth Normal Respiratory Pattern Normal Blood Pressure 154/106 H Blood Pressure Mean 122 Pulse Ox 98 Oxygen Delivery Method Room Air Room Air 02/28/22 03:12 Temperature Temperature Source Pulse Rate 76 Respiratory Rate 18 Respiratory Effort Respiratory Depth Respiratory Pattern Blood Pressure 148/63 H Blood Pressure Mean Pulse Ox 100 Oxygen Delivery Method Positive well nourished, well developed and obese General Appearance ED: well developed Nutritional Appearance: obese HEENT Reports moist mucous membranes HEENT Narrative: Nasal mucosa is hyperemic and boggy and there is cobblestoning noted in the posterior pharynx consistent with sinus drainage. No tongue or lip swelling noted. No airway edema or compromise. No trismus change in voice or difficulty with secretions. Eyes PERRL and EOMs intact bilaterally Neck supple Neck Narrative: No crepitance palpated in the neck and there is no pain with external manipulation of the thyroid cartilage Chest Wall palpation of chest normal Resp normal respiratory effort and clear to auscultation bilaterally Resp Narrative: No nasal flaring retractions tachypnea or accessory muscle use. Patient talking full sentences without difficulty Cardio regular rhythm Rate: tachycardic GI normal to inspection, nondistended, normoactive bowel sounds, non-tender, non-distended and no masses Auscultation: normoactive bowel sounds Palpation: soft Extremity normal to inspection Extremity Narrative: No asymmetric edema no pitting edema negative Homans' sign bilaterally Neuro oriented x3 and CN's II-XII intact bilaterally Sensorium / Orientation: alert Psych Psych Narrative: Patient has a nervous/anxious affect Skin no rashes or lesions noted MDM MDM MDM Narrative Medical decision making narrative: Patient presented to the ER mildly hypertensive and tachycardic but is also extremely anxious. Otherwise he is satting 98 to 100% on room air without any respiratory distress changes. He reports feeling like his throat is swollen but on exam his voice is not altered he has no difficulty swallowing saliva or water. With the sudden onset of symptoms I will elect to check chest x-ray and soft tissue neck for possible airway narrowing. Basic labs will be obtained as well. However he does not have report of new exposure and there is no physical exam findings to suggest acute allergic reaction or anaphylaxis. Therefore do not feel there is need for IM epinephrine. The patient's x-rays revealed no acute findings and after he was treated with Solu-Medrol and Benadryl and racemic epi reported improvement of symptoms. On reevaluation he is resting comfortably his pulse ox remains 98 to 100% on room air without signs of respiratory distress and therefore as I have low concern for an anaphylactic reaction or airway compromise he is safe for discharge Lab Data Attestation: I reviewed the patient's lab results. Labs: Laboratory Results - last 24 hr 02/28/22 02/28/22 01:12 01:12 WBC 5.8 RBC 4.42 L Hgb 13.1 Hct 39.1 L MCV 88.5 MCH 29.6 MCHC 33.5 RDW Std Deviation 41.7 RDW Coeff of [place] 12.8 Plt Count 174 MPV 10.8 Immature Gran % (Auto) 0.500 Neut % (Auto) 38.5 L Lymph % (Auto) 45.2 H [place] % (Auto) 12.4 H Eos % (Auto) 3.1 Baso % (Auto) 0.3 Absolute Neuts (auto) 2.2 Absolute Lymphs (auto) 2.62 Nucleated RBC % 0 Sodium 141 Potassium 3.7 Chloride 110 H Carbon Dioxide 25.0 Anion Gap 6 BUN 14 Creatinine 0.92 Estim Creat Clear Calc 105.33 Est GFR (MDRD) Af Amer 118 Est GFR (MDRD) Non-Af 98 BUN/Creatinine Ratio 15.2 Glucose 135 H Calcium 8.3 L Radiography Diagnostic Testing: Clinical Impression(s) from Imaging Studies Soft Tissue Neck X-Ray 02/28/22 00:53 IMPRESSION: Normal epiglottis. No other findings to explain the clinical presentation. Electronically Signed: Isauro Roca MD at 2:12 EST , Chest X-Ray 02/28/22 01:20 IMPRESSION: No radiographic evidence of acute cardiopulmonary disease. Electronically Signed: Isauro Roca MD at 2:11 EST , Chest x-ray as interpreted by the emergency medicine physician reveals no acute infiltrate pneumothorax or pleural effusion Soft tissue neck x-ray as interpreted by the emergency medicine physician reveals no airway narrowing/compromise or swelling to the epiglottis Discharge Plan Triage Chief Complaint: Shortness of Breath ED Provider: Isauro Hernandes Dx/Rx/DC Orders Clinical Impression: Dyspnea, Anxiety, Tobacco use disorder Instructions: ED Anxiety Reaction, ED Dyspnea Prescriptions: No Action Zubsolv 11.4-2.9 mg tablet, sublingual 1 tab sublingual DAILY quetiapine [Seroquel] 300 mg tablet 300 mg PO TID Label Comments: Take 1 (ONE) tab BY MOUTH EVERY MORNING and 2 (TWO) tabs BY MOUTH EVERY DAY AT BEDTIME aspirin [Shantell Aspirin] 325 mg tablet 325 mg PO DAILY Primary Care Provider: Care Physician,No Primary Referrals: Elsy Tolliver MD [Med Staff - A Class Lineman] - Care Physician,No Primary [Primary Care Provider] - Activity Restrictions/Additional Instructions: Your pulse ox/oxygen level has remained 98 to 100% the entire time in the ER. Your work-up shows no signs of airway narrowing or compromise. I feel he had some mucus plugging the back of your throat which made it difficult to breathe initially but once this was removed your anxiety took over May can you feel the symptoms for the last few hours. As you have had no changes of respiratory distress in the ER or low oxygen value you are safe to go home and go to bed. Please return to the ER or follow-up your family doctor should you have any further concerns Disposition Disposition: Home, Self Care Discharge Date/Time: 02/28/22 03:13
[2022-02-28 03:12] VITALS: BP 148/63; PULSE 76; RESP 18; O2SAT 100
== END 2022-02-28 03:13 | disposition home or self-care (01) ==
PROVIDERS: Emergency Provider Emergency Medicine; Visit Provider Emergency Medicine
DX: F41.9 Anxiety disorder, unspecified (principal); R06.00 Dyspnea, unspecified; B19.20 Unspecified viral hepatitis C without hepatic coma; F17.210 Nicotine dependence, cigarettes, uncomplicated; Z79.82 Long term (current) use of aspirin; E66.9 Obesity, unspecified
CPT/HCPCS: 70360; 71046; 80048; 85025; 93005; 96374; 96375; 99283; J7030; A4216

== ENCOUNTER 2022-03-07 13:29 | Emergency (ER) | payer OTHER, MEDICAID, SELFPAY ==
[2022-03-07 13:30] VITALS: BP 180/93; PULSE 117; RESP 18; TEMP 36.1; O2SAT 99; BMI 33.3
--- NOTE | 2022-03-07 13:42 | EKG12_ITS ---
Test Reason : SOB/CP Blood Pressure : / mmHG Vent. Rate : 101 BPM Atrial Rate : 101 BPM P-R Int : 166 ms QRS Dur : 082 ms QT Int : 358 ms P-R-T Axes : 042 035 030 degrees QTc Int : 464 ms Sinus tachycardia Nonspecific T wave abnormality Abnormal ECG Confirmed by ESTHELA NGUYEN, SEA ([id number]), order editor KOKI SWANSON ([id number]) on 03/09/2022 11:27:33 AM Referred By: Confirmed By:SEA PROCTOR MD
[2022-03-07 13:44] VITALS: BP 181/103; PULSE 103; RESP 16; TEMP 36.8; O2SAT 98
--- NOTE | 2022-03-07 13:44 | EDS_ITS ---
HPI <PARUL Ortega - Last Filed: 03/07/22 14:53> History of Present Illness Chief Complaint: Shortness of Breath Narrative Narrative: 36-year-old male with PMH of hepatitis C, substance abuse, anxiety presents with chest pain. He has had left-sided sharp chest pains almost daily for the last 6 months. It occurs several times per day and is a sharp pain that last for seconds. Occasionally he feels short of breath with it. The pain has no pattern and is not exertional or pleuritic. This morning he had a similar episode with brief sharp chest pain and shortness of breath while at work and he is concerned the doctors are missing something so presents for evaluation. He has had extensive work-up for this including an echo and treadmill stress test in October [address] Hobson. He has no history of DVT/PE or risk factors. He has no personal cardiac history but does have family history. He smokes 3/4 PPD. He states he is on a Suboxone equivalent and denies drug use. PFSH <PARUL Ortega - Last Filed: 03/07/22 14:53> [facility] Medical History (Updated 03/07/22 @ 14:32 by PARUL Ortega) chronic heroin use Family history of coronary artery disease Hepatitis C Substance abuse Home Medications quetiapine 300 mg tablet (Seroquel) 300 mg PO TID 12/17/20 [History Last Taken Unknown] buprenorphine 11.4 mg-naloxone 2.9 mg sublingual tablet (Zubsolv) 1 tab sublingual DAILY 10/22/21 [History Last Taken Unknown] aspirin 325 mg tablet (Shantell Aspirin) 325 mg PO DAILY 02/28/22 [History Last Taken Unknown] Allergy/AdvReac Type Severity Reaction Status Date / Time No Known Allergies Allergy Verified 03/07/22 13:31 Family History (Updated 10/22/21 @ 14:27 by Nelda Gonzalez) Mother Heart disease Surgical History Hx of hand surgery Social History (Updated 10/22/21 @ 14:28 by Nelda Gonzalez) Smoking Status: Current every day smoker tobacco type: cigarettes alcohol intake: never substance use type: former substance user and opiates caffeine: Yes Type: carbonated beverages Number of servings: 4 ROS <PARUL Ortega - Last Filed: 03/07/22 14:53> ROS ED ROS Narrative Constitutional: Negative for fever, chills, malaise. Eyes: Negative for visual change. ENT: Negative for sore throat, ear pain, rhinorrhea. CVS: Positive for chest pain. Negative for palpitations, syncope. Respiratory: Positive for shortness of breath. Negative for cough, orthopnea. GI: Negative for abdominal pain, nausea, vomiting, diarrhea, constipation, melena, hematochezia. : Negative for dysuria, hematuria or frequency. Neuro: Negative for headache, motor/sensory dysfunction. Skin: Negative for rash, abscess, or wound. Musc: Negative for joint pain, swelling, trauma. Heme: Negative for easy bruising, bleeding, lymphadenopathy. EXAM <PARUL Ortega - Last Filed: 03/07/22 14:53> Physical Exam Narrative Exam Narrative: CONST: Patient sitting in no acute distress. EYES: Normal inspection. ENT: Normal inspection. NECK: Normal inspection. RESP: No respiratory distress, CTAB. CVS: Tachycardic with a regular rhythm, no murmur, no gallop. ABD: Soft and nontender, no guarding or rebound, nondistended. SKIN: Color normal, no rash, warm, dry, intact. EXTREMITIES: Normal appearance, no pedal edema. NEURO: Oriented x4. PSYCH: Normal affect. Const Vital Signs: 03/07/22 13:30 03/07/22 13:44 03/07/22 13:47 Temperature 97 F L 98.2 F Temperature Source Temporal Temporal Pulse Rate 117 H 103 H Respiratory Rate 18 16 Respiratory Effort Short of Breath Respiratory Depth Normal Respiratory Pattern Normal Blood Pressure 180/93 H 181/103 H Blood Pressure Mean 122 129 Pulse Ox 99 98 Oxygen Delivery Method Room Air Room Air Room Air 03/07/22 15:21 Temperature Temperature Source Pulse Rate 97 Respiratory Rate Respiratory Effort Respiratory Depth Respiratory Pattern Blood Pressure 164/88 H Blood Pressure Mean Pulse Ox 99 Oxygen Delivery Method <Dr. Ervin Croft MD - Last Filed: 03/07/22 16:57> Physical Exam Const Vital Signs: 03/07/22 13:30 03/07/22 13:44 03/07/22 13:47 Temperature 97 F L 98.2 F Temperature Source Temporal Temporal Pulse Rate 117 H 103 H Respiratory Rate 18 16 Respiratory Effort Short of Breath Respiratory Depth Normal Respiratory Pattern Normal Blood Pressure 180/93 H 181/103 H Blood Pressure Mean 122 129 Pulse Ox 99 98 Oxygen Delivery Method Room Air Room Air Room Air 03/07/22 15:21 Temperature Temperature Source Pulse Rate 97 Respiratory Rate Respiratory Effort Respiratory Depth Respiratory Pattern Blood Pressure 164/88 H Blood Pressure Mean Pulse Ox 99 Oxygen Delivery Method [facility] <PARUL Ortega - Last Filed: 03/07/22 14:53> [facility] Narrative Medical decision making narrative: Patient has had 6 months of sharp left-sided chest pain almost daily. He appears anxious but nontoxic. BP 180/93, HR 117, otherwise normal. He is highly anxious likely explaining some of the tachycardia and during my exam is around 90-100. His exam overall is unremarkable. EKG is sinus tachycardia with no ischemic changes and is unchanged from previous. CBC, BMP, troponin all within normal limits. His history does not sound cardiac in nature and I reviewed the results from his echo and stress test in October which were normal. His symptoms for 6+ months are not consistent with PE and he has no risk factors. He is also had negative D-dimers in the past. I discussed with the patient he needs to follow-up with primary care doctor to look into other causes of his chest pain including anxiety. Patient was discharged in stable condition. Lab Data Attestation: I reviewed the patient's lab results. Labs: Laboratory Results - last 24 hr 03/07/22 03/07/22 13:30 13:30 WBC 6.3 RBC 4.63 Hgb 14.2 Hct 41.3 MCV 89.2 MCH 30.7 MCHC 34.4 RDW Std Deviation 42.2 RDW Coeff of Mook 12.8 Plt Count 178 MPV 10.2 Immature Gran % (Auto) 0.800 Neut % (Auto) 58.2 Lymph % (Auto) 32.5 [place] % (Auto) 6.9 Eos % (Auto) 1.1 Baso % (Auto) 0.5 Absolute Neuts (auto) 3.6 Absolute Lymphs (auto) 2.03 Nucleated RBC % 0 Sodium 138 Potassium 3.8 Chloride 107 Carbon Dioxide 25.0 Anion Gap 6 BUN 17 Creatinine 0.88 Estim Creat Clear Calc 110.11 Est GFR (MDRD) Af Amer 124 Est GFR (MDRD) Non-Af 102 BUN/Creatinine Ratio 19.2 Glucose 150 H Calcium 8.9 Troponin I High Sens < 3 L Radiography Diagnostic Testing: Clinical Impression(s) from Imaging Studies Chest X-Ray 03/07/22 13:57 IMPRESSION: There are no acute findings. Electronically Signed: Juancarlos Bonner MD at 14:20 EST , EKG Initial EKG: Attestation: I personally reviewed and interpreted this EKG as follows: Interpretation: Sinus Rhythm Comments: Sinus tachycardia at 101 bpm, nonspecific T wave changes, no acute ischemia. Unchanged from EKG on February 28, 2022 Prior EKG tracings: available for review Prior: Unchanged <Dr. Ervin Croft MD - Last Filed: 03/07/22 16:57> [facility] Lab Data Labs: Laboratory Results - last 24 hr 03/07/22 03/07/22 13:30 13:30 WBC 6.3 RBC 4.63 Hgb 14.2 Hct 41.3 MCV 89.2 MCH 30.7 MCHC 34.4 RDW Std Deviation 42.2 RDW Coeff of Mook 12.8 Plt Count 178 MPV 10.2 Immature Gran % (Auto) 0.800 Neut % (Auto) 58.2 Lymph % (Auto) 32.5 [place] % (Auto) 6.9 Eos % (Auto) 1.1 Baso % (Auto) 0.5 Absolute Neuts (auto) 3.6 Absolute Lymphs (auto) 2.03 Nucleated RBC % 0 Sodium 138 Potassium 3.8 Chloride 107 Carbon Dioxide 25.0 Anion Gap 6 BUN 17 Creatinine 0.88 Estim Creat Clear Calc 110.11 Est GFR (MDRD) Af Amer 124 Est GFR (MDRD) Non-Af 102 BUN/Creatinine Ratio 19.2 Glucose 150 H Calcium 8.9 Troponin I High Sens < 3 L Radiography Diagnostic Testing: Clinical Impression(s) from Imaging Studies Chest X-Ray 03/07/22 13:57 IMPRESSION: There are no acute findings. Electronically Signed: Juancarlos Bonner MD at 14:20 EST , Treatment and Re-Evaluation Narrative: I have personally performed a face to face assessment of the patient and have reviewed the HINA Note. I performed a substantive portion of the visit including all aspects of the following. My gramajo findings include: History: Patient Aurelio presents with episodes of chest pain. He states he has been having chest pain for about 6 months or more. It mostly occurs at work where he works under high stress and a lot of physical work. But it has occurred at other times. He describes it is very sharp located just left of the sternum and it last for 1 or 2 seconds. Sometimes he feels a little short of breath with it but is not chronically short of breath. He is not coughing. No hemoptysis. No leg pain or swelling. He does have anxiety but does not think that is the source of this. He has been seen before for this. He has had a stress test and echocardiogram this October that showed no acute process. He is also concerned that he was recently treated for gonorrhea and if that could be affecting his heart. However, he was having symptoms before he was treated for this. Patient also is still smoking and was counseled on the importance to quit. Patient states his mother had heart problems but he does not know what it was. She never had stents or bypass surgery. It sounds like she did have strokes. Exam: Patient awake alert no acute distress. Heart rates about 95-1 05 while I am in the room. Breathing is easy and unlabored. No pain with a deep breath. No fully reproducible chest tenderness. Heart is regular. No murmur. No muffled heart tones. Peripheral pulses are equal x4. Medical Decison Making this patient has had a significant work-up. We will check some blood work x-ray and EKG today to make sure there is no marked change. As long as this is relatively normal, I think we can get him home for follow-up. Discharge Plan Triage Chief Complaint: Shortness of Breath ED Midlevel Provider: Kylah Burrell ED Provider: Ervin Croft Dx/Rx/DC Orders Clinical Impression: Atypical chest pain Instructions: ED Chest Pain, Noncardiac Prescriptions: No Action Zubsolv 11.4-2.9 mg tablet, sublingual 1 tab sublingual DAILY quetiapine [Seroquel] 300 mg tablet 300 mg PO TID Label Comments: Take 1 (ONE) tab BY MOUTH EVERY MORNING and 2 (TWO) tabs BY MOUTH EVERY DAY AT BEDTIME aspirin [Shantell Aspirin] 325 mg tablet 325 mg PO DAILY Primary Care Provider: Care Physician,No Primary Referrals: Femi Lott MD [Med Staff - Active Staff] - Care Physician,No Primary [Primary Care Provider] - Activity Restrictions/Additional Instructions: Today the testing of your heart and all blood work looks normal. It is very important you follow-up with your primary care doctor for further evaluation of the symptoms. Disposition Disposition: Home, Self Care Discharge Date/Time: 03/07/22 15:22
[2022-03-07 13:47] VITALS: O2SAT 98
[2022-03-07 13:56] LABS: Absolute Lymphocyte Count 2.03 X10^3/uL (0.83-4.51); Absolute Neutrophil Count 3.6 X10^3/uL (2.0-7.7); Basophil# 0.03 X10^3/uL; Basophil% 0.5 % (0-1); Eosinophil# 0.07 X10^3/uL; Eosinophils% 1.1 % (0-5); Hematocrit 41.3 % (40-54); Hemoglobin 14.2 g/dL (13.0-16.5); Lymphocyte # 2.03 X10^3/ul (0.83-4.51); Lymphocyte % 32.5 % (19-41); Mean Corp Hgb Conc 34.4 g/dL (32-36); Mean Corpuscular Hgb 30.7 pg (27.0-32.0); Mean Corpuscular Volume 89.2 fL (80-94); Mean Platelet Vol. 10.2 fl (6.2-12.0); Monocyte# 0.43 X10^3/uL; Monocyte% 6.9 % (0-10); NRBC Flagged by Analyzer 0 % (0-5); Neutrophil # 3.64 X10^3/uL (2.7-7.7); Neutrophil % 58.2 % (47-70); Platelet Count 178 K/mm3 (150-450); RBC Distribution Width CV 12.8 % (11.6-14.6); RBC Distribution Width SD 42.2 fl (35.1-43.9); Red Blood Count 4.63 M/mm3 (4.6-6.2); White Blood Count 6.3 K/mm3 (4.4-11.0)
--- NOTE | 2022-03-07 13:57 | RAD_ITS ---
STUDY: X-RAY CHEST REASON FOR EXAM: Male, 36 years old. CHEST PAIN chest pain TECHNIQUE: XR Chest 1 View COMPARISON: 02/28/2022 FINDINGS: There is no demonstrated pleural abnormality. Normal size heart. Normal mediastinum and brock. Normal visualized pulmonary arteries. Normal visualized aortic arch and descending thoracic aorta. Normal visualized thoracic spine. Normal visualized ribs, clavicles, and shoulders. There is no demonstrated abnormality of the visualized soft tissue structures of the upper abdomen. RAD/Chest 1 View (Portable) IMPRESSION: There are no acute findings. Electronically Signed: Juancarlos Bonner MD at 14:20 EST ,
[2022-03-07 14:16] LABS: Anion Gap 6 (5-15); BUN 17 mg/dL (7-18); BUN/Creat Ratio 19.2 RATIO (10-20); Calcium,Total 8.9 mg/dL (8.5-10.1); Chloride 107 mmol/L (98-107); Creatinine, Serum 0.88 mg/dL (0.70-1.30); EST Glomerular Filtration Rate 102 mL/min (>60); Est Glom Filt Rate - Afr Amer 124 mL/min (>60); Estimated Creatinine Clearance 110.11 ml/min; Glucose 150 mg/dL (74-106); Potassium 3.8 mmol/L (3.5-5.1); Sodium Level 138 mmol/L (136-145); Troponin-I HS < 3 pg/mL (3.0-78.0)
[2022-03-07 15:21] VITALS: BP 164/88; PULSE 97; O2SAT 99
== END 2022-03-07 15:22 | disposition home or self-care (01) ==
PROVIDERS: Physician Assistant; Emergency Provider Emergency Medicine; Visit Provider Emergency Medicine
DX: R07.89 Other chest pain (principal); F17.210 Nicotine dependence, cigarettes, uncomplicated; F41.9 Anxiety disorder, unspecified; Z82.49 Family history of ischemic heart disease and other diseases of the circulatory system; Z86.19 Personal history of other infectious and parasitic diseases
CPT/HCPCS: 71045; 80048; 84484; 85025; 93005; 99284; A4216

== ENCOUNTER 2022-04-27 14:33 | Emergency (ER) | payer OTHER, MEDICAID, SELFPAY ==
[2022-04-27 14:34] VITALS: BP 130/113; PULSE 101; RESP 16; TEMP 36.6; O2SAT 96; BMI 33.4
--- NOTE | 2022-04-27 14:39 | EKG12_ITS ---
Test Reason : CP Blood Pressure : / mmHG Vent. Rate : 092 BPM Atrial Rate : 092 BPM P-R Int : 168 ms QRS Dur : 088 ms QT Int : 358 ms P-R-T Axes : 051 039 005 degrees QTc Int : 442 ms Normal sinus rhythm Nonspecific T wave abnormality Abnormal ECG When compared with ECG of 07-MAR-2022 13:45, No significant change was found Confirmed by KENNETH NGUYEN, SHUKRI ([id number]), editor index KOKI SWANSON ([id number]) on 05/03/2022 12:51:19 PM Referred By: MORENITA Confirmed By:ROLY COOPER MD
--- NOTE | 2022-04-27 14:48 | RAD_ITS ---
STUDY: X-RAY CHEST REASON FOR EXAM: Male, 36 years old. Sudden onset of chest pain and pressure. TECHNIQUE: PA and lateral views of the chest. COMPARISON: Comparison is made with prior study 03/07/2022. FINDINGS: The lungs are clear and expanded. There is no demonstrated pleural abnormality. Normal size heart. Normal mediastinum and brock. Normal visualized pulmonary arteries. Normal visualized aortic arch and descending thoracic aorta. Normal visualized thoracic spine. Normal visualized ribs, clavicles, and shoulders. There is no demonstrated abnormality of the visualized soft tissue structures of the upper abdomen. RAD/Chest 1 View (Portable) IMPRESSION: Normal x-ray examination of the chest. Electronically Signed: Mario Morris MD at 15:14 EST ,
--- NOTE | 2022-04-27 15:35 | ED.VIS.CHEST ---
HPI History of Present Illness Chief Complaint: Chest Pain Detail of Chief Complaint: Chest pain at work x2 Informant: patient Onset/Context/Timing Onset: Today and Hours Activity at onset: sudden Timing: Intermittent (Ration of both episodes 10 minutes) Quality: Positive for Pressure Location: Substernal Current Severity: Gone Maximum Severity: Severe Worsened By: Nothing Relieved By: Nothing Associated Symptoms: Positive for Dyspnea and - (No radiation to jaw, neck, shoulders, back); Negative for Nausea, Vomiting, Diaphoresis, Cough, Fever, Lightheadedness, Acid Reflux or Palpitations Narrative Narrative: Patient is a 36-year-old male with chief complaint of midsternal chest discomfort that lasted 10 minutes with shortness of breath. First episode occurred at work. He stopped what he was doing. The pain went away. When he went to start work again he had chest discomfort that lasted 10 minutes. He states this has been an issue for approximately 6 months. He states he had a recent stress test He states he has had other work-up and no known cause. He does not believe this is anxiety. He does endorse history of anxiety, however. He presently has no symptoms. Patient has history of hepatitis C to IV drug use. He states he has not used in some time. He denies history of VTE or PE. Patient has no risk factors for VTE. Patient denies intolerance to greasy or fried foods. Patient denies black or maroon-colored stool. Patient states he has not been referred to GI to determine if there is a GI cause i.e. reflux etc. Prior Similar Symptoms: Yes Recent Illness/Hospitalization: Yes CVD Risk Factors: Negative for Hypertension, Diabetes, Hypercholesterolemia or Family History 1' </=55 PE Risk Factors: Negative for Recent Travel/Surgery, Recent Immobilization, Prior DVT or PE, Cancer or OCP + Smoking + >/=35 TAD Risk Factors: Negative for Marfan's Syndrome, Hypertension or Family History [facility] Medical History (Updated 04/27/22 @ 18:[address] Colby Leonard MD) Chest pain chronic heroin use Family history of coronary artery disease Hepatitis C Substance abuse Home Medications quetiapine 300 mg tablet (Seroquel) 300 mg PO TID 12/17/20 [History Last Taken Unknown] buprenorphine 11.4 mg-naloxone 2.9 mg sublingual tablet (Zubsolv) 1 tab sublingual DAILY 10/22/21 [History Last Taken Unknown] aspirin 325 mg tablet (Shantell Aspirin) 325 mg PO DAILY 02/28/22 [History Last Taken Unknown] albuterol sulfate 90 mcg/actuation aerosol inhaler 1 inh inhalation Q6H PRN breathing 04/27/22 [History Last Taken Unknown] Allergy/AdvReac Type Severity Reaction Status Date / Time No Known Allergies Allergy Verified 04/27/22 14:37 Family History (Updated 10/22/21 @ 14:27 by Nelda Gonzalez) Mother Heart disease Surgical History Hx of hand surgery Social History (Updated 04/27/22 @ 15:[address] Colby Leonard MD) household members: none Smoking Status: Current every day smoker tobacco type: cigarettes alcohol intake: never substance use type: former substance user and opiates caffeine: Yes Type: carbonated beverages Number of servings: 4 ROS ROS ED Constitutional Constitutional ED: Denies chills, fever(s), subjective, sweats or weight loss Eyes Eyes: Reports none ENT ENT ED: Denies ear pain, rhinorrhea or sore throat Cardiovascular Cardiovascular: Reports as per HPI; Denies orthopnea or paroxysmal nocturnal dyspnea Respiratory/Chest Respiratory/Chest: Reports dyspnea; Denies cough, dyspnea on exertion, orthopnea or paroxysmal nocturnal dyspnea Gastrointestinal Gastrointestinal: Denies abdominal pain, constipation, diarrhea, melena, nausea or vomiting Genitourinary Genitourinary ED: Denies dysuria, hematuria or urinary frequency Musculoskeletal Musculoskeletal: Denies arthralgias, back pain, myalgias or neck pain Integumentary Denies rash Neurologic Neurologic: Denies headache(s), paresthesias or weakness Psychiatric Psychiatric: Denies anxiety or depression Endocrine Endocrinology: Denies cold intolerance or heat intolerance Hematologic/Lymphatic Hematologic/Lymphatic: Denies easy bleeding or easy bruising EXAM Physical Exam Const Vital Signs: 04/27/22 14:34 04/27/22 15:47 04/27/22 18:12 Temperature 98 F Temperature Source Temporal Pulse Rate 101 H 87 Respiratory Rate 16 18 Respiratory Effort Short of Breath Blood Pressure 130/113 H Blood Pressure Mean 118 Pulse Ox 96 98 Oxygen Delivery Method Room Air Room Air Positive well nourished, well developed and obese General Appearance ED: well developed and NAD; Negative for pallor Nutritional Appearance: obese HEENT Reports TM's clear and moist mucous membranes normocephalic and atraumatic Tympanic Membrane ED: Yes TM's clear Eyes PERRL and EOMs intact bilaterally General Eye ED: Negative for pale conjunctiva or scleral icterus Neck no lymphadenopathy, supple and no JVD Chest Wall inspection of chest normal and palpation of chest normal Resp normal respiratory effort and clear to auscultation bilaterally Cardio regular rate, regular rhythm, S1 normal heart sound, S2 normal heart sound and no murmurs Peripheral Pulses: pulses 2+ throughout GI normal to inspection, nondistended, normoactive bowel sounds, soft to palpation, non-tender, non-distended and no masses; Negative for hepatosplenomegaly Back/Spine no CVA tenderness Extremity normal to inspection Extremity Narrative: There is no asymmetry, swelling, discoloration, leg vein distention, palpable cords or tenderness along the distribution of the deep venous system. Neuro oriented x3, CN's II-XII intact bilaterally, no sensory deficits noted and gait normal Sensorium / Orientation: awake Motor Exam: strength 5/5 throughout Psych mental status grossly normal Skin no rashes or lesions noted and no wounds General Skin Exam: Negative for jaundice or pallor MDM MDM MDM Narrative Medical decision making narrative: Patient did have a stress test November 10, 2021. Patient exercised on the Alvino protocol for 9 minutes completing stage III achieving a peak heart rate of 153 which is 83% of predicted maximum with a peak blood pressure of 1 5452. He achieved a peak met capacity of 10 METS. The study was technically adequate. There were no cardiac dysrhythmias present pretest during exercise or recovery. Cardiac delights/nuclear perfusion images was normal. Myocardial perfusion. The gated Cardiolite study estimated LV ejection fraction of 67%. With recurrent history of prior symptoms and negative work-up. Suspect other cause. Nurse protocol was initiated. EKG was obtained to assess for acute cardiac ischemia. EKG reveals no evidence of acute cardiac ischemia. Troponin was obtained. CBC was obtained to assess for anemia and BMP to assess for any electrolyte abnormality. Chest x-ray was also ordered per protocol. This was reviewed and is normal. The cardiac silhouette and size was unremarkable. The perihilar region was unremarkable. Lung parenchyma was normal. Osseous structures were normal. This was independently reviewed and interpreted by me. Since patient is PERC negative D-dimer was not obtained. Lab Data Attestation: I reviewed the patient's lab results. Lab results narrative: CBC is unremarkable. Basic metabolic panel is unremarkable. First troponin is normal. 2-hour troponin is pending. Apparently the second troponin was canceled. Since the first 1 is 4 will discharge to home. Labs: Laboratory Results - last 24 hr 04/27/22 04/27/22 15:45 15:45 WBC 5.1 RBC 4.41 L Hgb 13.0 Hct 39.4 L MCV 89.3 MCH 29.5 MCHC 33.0 RDW Std Deviation 42.9 RDW Coeff of Mook 13.1 Plt Count 168 MPV 10.6 Immature Gran % (Auto) 0.400 Neut % (Auto) 50.5 Lymph % (Auto) 37.2 [place] % (Auto) 8.5 Eos % (Auto) 2.8 Baso % (Auto) 0.6 Absolute Neuts (auto) 2.6 Absolute Lymphs (auto) 1.88 Nucleated RBC % 0 Sodium 140 Potassium 4.0 Chloride 108 H Carbon Dioxide 27.0 Anion Gap 5 BUN 12 Creatinine 0.80 Estim Creat Clear Calc 121.13 Est GFR (MDRD) Af Amer 139 Est GFR (MDRD) Non-Af 115 BUN/Creatinine Ratio 15.0 Glucose 97 Calcium 9.1 Troponin I High Sens 4 Radiography Chest X-Ray - ED: 1 View and Read by ED Physician (Documented in the MDM portion of the medical record.) Diagnostic Testing: Clinical Impression(s) from Imaging Studies Chest X-Ray 04/27/22 14:48 IMPRESSION: Normal x-ray examination of the chest. Electronically Signed: Mario Morris MD at 15:14 EST , EKG Initial EKG: Attestation: I personally reviewed and interpreted this EKG as follows: Interpretation: Sinus Rhythm (Rate is 92. [place] intervals 160 ms. QS duration 88 ms. QT duration 3 and 58 ms. [place] is normal. The EKG is normal in my opinion.) Discharge Plan Triage Chief Complaint: Chest Pain ED Provider: Colby Leonard Dx/Rx/DC Orders Clinical Impression: Chest pressure, Family history of coronary artery disease, Hepatitis C, Acute dyspnea Instructions: ED Chest Pain, Noncardiac, ED Chest Pain, Uncertain Cause Prescriptions: No Action Zubsolv 11.4-2.9 mg tablet, sublingual 1 tab sublingual DAILY quetiapine [Seroquel] 300 mg tablet 300 mg PO TID Label Comments: Take 1 (ONE) tab BY MOUTH EVERY MORNING and 2 (TWO) tabs BY MOUTH EVERY DAY AT BEDTIME aspirin [Shantell Aspirin] 325 mg tablet 325 mg PO DAILY albuterol sulfate 90 mcg/actuation HFA aerosol inhaler 1 inh INHALATION Q6H PRN (Reason: breathing) Label Comments: Inhale 2 Puffs as instructed every 6 hours as needed for wheezing/shortness of breath. Primary Care Provider: Care Physician,No Primary Referrals: Care Physician,No Primary [Primary Care Provider] - Doctor,Your [Non-Staff] - 5-7 Days Activity Restrictions/Additional Instructions: The name of your doctor/primary care provider is located on your insurance card issue to you by [facility]. Follow-up with your doctor because you will need other tests to determine the etiology of your chest pain which may be GI or pulmonary Disposition Disposition: Home, Self Care
[2022-04-27 16:02] LABS: Absolute Lymphocyte Count 1.88 X10^3/uL (0.83-4.51); Absolute Neutrophil Count 2.6 X10^3/uL (2.0-7.7); Basophil# 0.03 X10^3/uL; Basophil% 0.6 % (0-1); Eosinophil# 0.14 X10^3/uL; Eosinophils% 2.8 % (0-5); Hematocrit 39.4 % (40-54); Lymphocyte # 1.88 X10^3/ul (0.83-4.51); Lymphocyte % 37.2 % (19-41); Mean Corpuscular Hgb 29.5 pg (27.0-32.0); Mean Corpuscular Volume 89.3 fL (80-94); Mean Platelet Vol. 10.6 fl (6.2-12.0); Monocyte# 0.43 X10^3/uL; Monocyte% 8.5 % (0-10); NRBC Flagged by Analyzer 0 % (0-5); Neutrophil # 2.55 X10^3/uL (2.7-7.7); Neutrophil % 50.5 % (47-70); Platelet Count 168 K/mm3 (150-450); RBC Distribution Width CV 13.1 % (11.6-14.6); RBC Distribution Width SD 42.9 fl (35.1-43.9); Red Blood Count 4.41 M/mm3 (4.6-6.2); White Blood Count 5.1 K/mm3 (4.4-11.0)
[2022-04-27 16:28] LABS: Anion Gap 5 (5-15); BUN 12 mg/dL (7-18); Calcium,Total 9.1 mg/dL (8.5-10.1); Chloride 108 mmol/L (98-107); EST Glomerular Filtration Rate 115 mL/min (>60); Est Glom Filt Rate - Afr Amer 139 mL/min (>60); Estimated Creatinine Clearance 121.13 ml/min; Glucose 97 mg/dL (74-106); Sodium Level 140 mmol/L (136-145); Troponin-I HS 4 pg/mL (3.0-78.0)
[2022-04-27 18:12] VITALS: PULSE 87; RESP 18; O2SAT 98
== END 2022-04-27 18:48 | disposition home or self-care (01) ==
PROVIDERS: Emergency Provider Emergency Medicine; Visit Provider Emergency Medicine
DX: R07.89 Other chest pain (principal); B19.20 Unspecified viral hepatitis C without hepatic coma; R06.00 Dyspnea, unspecified; F17.210 Nicotine dependence, cigarettes, uncomplicated; E66.9 Obesity, unspecified; Z79.82 Long term (current) use of aspirin; Z79.899 Other long term (current) drug therapy
CPT/HCPCS: 71045; 80048; 84484; 85025; 93005; 99285; A4216

== ENCOUNTER 2022-06-20 23:37 | Emergency (ER) | payer OTHER, MEDICAID, SELFPAY ==
[2022-06-20 23:38] VITALS: BP 169/80; PULSE 92; RESP 18; TEMP 36.6; O2SAT 98; BMI 21.2
[2022-06-21] MEDS: Clindamycin HCl 150 MG Capsule 300 MG PO (02:08)
[2022-06-21] MEDS: Lidocaine 2% /Epi 1:100 (20ml) 20 ML VIAL INFILT (02:37)
[2022-06-21] MEDS: Bupivacaine Mpf 0.5% 30 ML VIAL INFILT (02:37)
--- NOTE | 2022-06-21 02:45 | EDS_ITS ---
HPI History of Present Illness Chief Complaint: Dental Narrative Narrative: Patient is a 36-year-old male who states he is on Suboxone secondary to history of opioid abuse. He reports he has bad teeth. He states they have been infected in the past. He denies any recent trauma difficulty breathing or swallowing fevers or chills but states in the last 1 to 2 days he has been increasing facial pain and swelling and he has concern for repeat infection and therefore comes in for evaluation. [facility] Medical History (Updated 06/21/22 @ 02:[address] Isauro Hernandes DO) Chest pain chronic heroin use Family history of coronary artery disease Hepatitis C Substance abuse Home Medications quetiapine 300 mg tablet (Seroquel) 300 mg PO TID 12/17/20 [History Last Taken Unknown] buprenorphine 11.4 mg-naloxone 2.9 mg sublingual tablet (Zubsolv) 1 tab sublingual DAILY 10/22/21 [History Last Taken Unknown] aspirin 325 mg tablet (Shantell Aspirin) 325 mg PO DAILY 02/28/22 [History Last Taken Unknown] albuterol sulfate 90 mcg/actuation aerosol inhaler 1 inh inhalation Q6H PRN breathing 04/27/22 [History Last Taken Unknown] clindamycin HCl 300 mg capsule 300 mg PO 4X/DAY 10 days #40 caps 06/21/22 [Rx Last Taken Unknown] Allergy/AdvReac Type Severity Reaction Status Date / Time No Known Allergies Allergy Verified 06/20/22 23:48 Family History (Updated 10/22/21 @ 14:27 by Nelda Gonzalez) Mother Heart disease Surgical History Hx of hand surgery Social History (Updated 04/27/22 @ 15:[address] Colby Leonard MD) household members: none Smoking Status: Current every day smoker tobacco type: cigarettes alcohol intake: never substance use type: former substance user and opiates caffeine: Yes Type: carbonated beverages Number of servings: 4 ROS ROS ED Constitutional Constitutional ED: Denies chills or fever(s) ENT ENT ED: Reports other Details: Positive dental pain ; Denies sore throat Cardiovascular Cardiovascular: Denies chest pain Respiratory/Chest Respiratory/Chest: Denies cough or dyspnea Gastrointestinal Gastrointestinal: Denies abdominal pain, diarrhea, nausea or vomiting Genitourinary Genitourinary ED: Denies dysuria Musculoskeletal Musculoskeletal: Denies myalgias Integumentary Denies rash Neurologic Neurologic: Denies headache(s) Hematologic/Lymphatic Hematologic/Lymphatic: Denies easy bleeding or easy bruising EXAM Physical Exam Const Vital Signs: 06/20/22 23:38 Temperature 97.8 F Temperature Source Temporal Pulse Rate 92 Respiratory Rate 18 Blood Pressure 169/80 H Blood Pressure Mean 109 Pulse Ox 98 Oxygen Delivery Method Room Air Positive well nourished and well developed General Appearance ED: well developed HEENT Reports moist mucous membranes HEENT Narrative: No signs of infection in the posterior pharynx. No airway edema or compromise. There are multiple dental caries present without obvious abscess formation. Eyes PERRL and EOMs intact bilaterally Neck supple Neck Narrative: No brawny edema in the submental space to suggest Axel's angina Resp normal respiratory effort and clear to auscultation bilaterally Cardio regular rate and regular rhythm Extremity normal to inspection Neuro oriented x3 and CN's II-XII intact bilaterally Sensorium / Orientation: alert Psych mental status grossly normal Skin no rashes or lesions noted MDM MDM MDM Narrative Medical decision making narrative: Patient presented to the ER hypertensive but otherwise with stable vitals. Differential includes chronic dental pain from dental caries versus dental abscess versus ANUG versus Axel's angina. By exam patient does not have brawny edema in the submental space there is no change to the gingiva to suggest ANUG. He has no obvious dental abscess by exam and therefore do not feel there is need for imaging or laboratory studies. Patient was given a dental block for pain as he is on Suboxone and I do not feel it appropriate to prescribe opioid. He was then started on clindamycin for concern of underlying dental infection but as he has no signs of systemic infection is otherwise safe to return home Patient was given a left superior alveolar dental block using 1.5 mL of 0.5% Marcaine and 1.5 mL of 2% lidocaine with epinephrine. Patient was also given a left inferior alveolar dental block using 1.5 ml of 0.5% Marcaine and 1.5 ml of 2% lidocaine with epinephrine. Both injections because good anesthesia and he tolerated the procedures well without complication History & Record Review Discussion w/independent historian: Patient Discharge Plan Triage Chief Complaint: Dental ED Provider: Isauro Hernandes Dx/Rx/DC Orders Clinical Impression: Pain, dental, Dental infection Instructions: ED Dental Pain, ED Dental Abscess Prescriptions: New clindamycin HCl 300 mg capsule 300 mg PO 4X/DAY 10 Days Qty: 40 0RF No Action Zubsolv 11.4-2.9 mg tablet, sublingual 1 tab sublingual DAILY quetiapine [Seroquel] 300 mg tablet 300 mg PO TID Label Comments: Take 1 (ONE) tab BY MOUTH EVERY MORNING and 2 (TWO) tabs BY MOUTH EVERY DAY AT BEDTIME aspirin [Shantell Aspirin] 325 mg tablet 325 mg PO DAILY albuterol sulfate 90 mcg/actuation HFA aerosol inhaler 1 inh INHALATION Q6H PRN (Reason: breathing) Label Comments: Inhale 2 Puffs as instructed every 6 hours as needed for wheezing/shortness of breath. Primary Care Provider: Care Physician,No Primary Referrals: Care Physician,No Primary [Primary Care Provider] - Activity Restrictions/Additional Instructions: Please take the antibiotics as directed to resolve the underlying dental infection which is causing your dental pain. Follow-up with your dentist to discuss definitive treatment and return to the ER should you have any further concerns Disposition Disposition: Home, Self Care Discharge Date/Time: 06/21/22 02:55
== END 2022-06-21 02:55 | disposition home or self-care (01) ==
PROVIDERS: Emergency Provider Emergency Medicine; Visit Provider Emergency Medicine
DX: K04.7 Periapical abscess without sinus (principal); F17.210 Nicotine dependence, cigarettes, uncomplicated
CPT/HCPCS: 64450; 64999; 99283

== ENCOUNTER → 2022-07-02 | Outpatient (CLI) | payer MEDICAID, SELFPAY ==
--- NOTE | 2022-07-02 11:50 | CPS ---
DOSES 4/5 OF METHACHOLINE NOT ADMINISTERED D/T PATIENT MET END OF TEST CRITERIA WITH DROP IN FEV1 BY 21%. DOSES WASTED
--- NOTE | 2022-07-05 05:57 | BRONCHALL_ITS ---
Bronchoprovocation Challenge Bronchoprovocation Challenge Bronchoprovocation Challenge: Brief HPI: Patient is a 36 year old male, currently under the care of Dr. Felix, who presents to [facility] for a bronchoprovocation study secondary to diagnosis of dyspnea. Respiratory therapist reports good effort and reproducible results. Interpretation: Initial spirometry showed no large airways obstructive ventilatory defect. The patient was then given increasingly concentrated doses of methacholine in a stepwise/standardized fashion, using a modified ATS protocol. The patient had a significant reduction in FEV1 by 21% and a calculated PD20 of 0.086. Impression: Positive bronchoprovocation study in a range consistent with a diagnosis of asthma
== END | disposition home or self-care (01) ==
LOC: PSN 07:05
PROVIDERS: PCP Internal Medicine
DX: R06.02 Shortness of breath (principal)
CPT/HCPCS: 94070; 95070; J3490; J7674

== ENCOUNTER 2022-07-23 05:54 | Emergency (ER) | payer MEDICAID, SELFPAY ==
[2022-07-23 05:55] VITALS: BP 160/92; PULSE 114; RESP 18; TEMP 36.9; O2SAT 95; BMI 35.2
--- NOTE | 2022-07-23 06:01 | EDS_ITS ---
HPI History of Present Illness Chief Complaint: Dental Informant: patient Narrative Narrative: Overnight patient started having left maxillary dental pain. No swelling, discharge, bleeding, fevers, or chills. He has had some nasal congestion recently. He states this is how his pain started a month ago where he was seen here for dental pain and swelling/infection, he has an appointment with a dentist as a result of being seen here and referred to a dentist, but it is not until this coming month, July. States he was prescribed clindamycin and it helped. [facility] Medical History Chest pain chronic heroin use Family history of coronary artery disease Hepatitis C Substance abuse Home Medications quetiapine 300 mg tablet (Seroquel) 300 mg PO TID 12/17/20 [History Last Taken Unknown] buprenorphine 11.4 mg-naloxone 2.9 mg sublingual tablet (Zubsolv) 1 tab sublingual DAILY 10/22/21 [History Last Taken Unknown] aspirin 325 mg tablet (Shantell Aspirin) 325 mg PO DAILY 02/28/22 [History Last Taken Unknown] albuterol sulfate 90 mcg/actuation aerosol inhaler 1 inh inhalation Q6H PRN breathing 04/27/22 [History Last Taken Unknown] clindamycin HCl 300 mg capsule 300 mg PO 4X/DAY 10 days #40 caps 06/21/22 [Rx Last Taken Unknown] amoxicillin 500 mg tablet 500 mg PO TID #30 tabs 07/23/22 [Rx Last Taken Unknown] Allergy/AdvReac Type Severity Reaction Status Date / Time No Known Allergies Allergy Verified 07/23/22 05:58 Family History (Updated 10/22/21 @ 14:27 by Nelda Gonzalez) Mother Heart disease Surgical History Hx of hand surgery Social History household members: none Smoking Status: Current every day smoker tobacco type: cigarettes alcohol intake: never substance use type: former substance user and opiates caffeine: Yes Type: carbonated beverages Number of servings: 4 ROS ROS ED Constitutional Constitutional ED: Denies chills or fever(s) Eyes Eyes: Denies change in vision or double vision ENT ENT ED: Reports dental pain; Denies sinus pain or throat swelling Cardiovascular Cardiovascular: Denies chest pain or palpitations Respiratory/Chest Respiratory/Chest: Denies cough or dyspnea Integumentary Denies abscess or rash Neurologic Neurologic: Denies headache(s), paresthesias or weakness EXAM Physical Exam Const Vital Signs: 07/23/22 05:55 Temperature 98.4 F Temperature Source Temporal Pulse Rate 114 H Respiratory Rate 18 Blood Pressure 160/92 H Blood Pressure Mean 114 Pulse Ox 95 Oxygen Delivery Method Room Air Positive well nourished and well developed General Appearance ED: well developed and NAD HEENT HEENT Narrative: There is a left first molar #14 that has a filling in it, there are some signs of decay near the hard palate, but there are no areas of tenderness or abscess. No trismus. Palpation posterior to this in the gingiva yields no pain or tender ness. Parotid nontender. Left maxillary sinus mildly tender, no purulent nasal discharge. No other sinus tenderness. No other dental tenderness. Roof of mouth is normal-appearing. Throat: posterior oropharynx normal Eyes PERRL and EOMs intact bilaterally Neck no lymphadenopathy and supple Resp normal respiratory effort Neuro oriented x3 and CN's II-XII intact bilaterally Sensorium / Orientation: alert Gait (Neuro): normal gait Psych mental status grossly normal and thought process normal Skin no rashes or lesions noted and no wounds MDM MDM MDM Narrative Medical decision making narrative: Differential here includes early dental pain/infection, early sinusitis, sinus congestion/pain. He thinks this feels the same as the dental pain that he had before but I cannot really reproduce any of the pain on exam of his dentition/gingiva. I will prescribe him an antibiotic, vies use a decongestant, if pain worsens and/or he develops any swelling advised to fill and take the antibiotic as prescribed until finished she is comfortable with the plan. Discharge Plan Triage Chief Complaint: Dental ED Provider: Tera Yu Dx/Rx/DC Orders Clinical Impression: Acute oral pain Instructions: ED Dental Pain Prescriptions: New amoxicillin 500 mg tablet 500 mg PO TID Qty: 30 0RF No Action Zubsolv 11.4-2.9 mg tablet, sublingual 1 tab sublingual DAILY quetiapine [Seroquel] 300 mg tablet 300 mg PO TID Label Comments: Take 1 (ONE) tab BY MOUTH EVERY MORNING and 2 (TWO) tabs BY MOUTH EVERY DAY AT BEDTIME aspirin [Shantell Aspirin] 325 mg tablet 325 mg PO DAILY albuterol sulfate 90 mcg/actuation HFA aerosol inhaler 1 inh INHALATION Q6H PRN (Reason: breathing) Label Comments: Inhale 2 Puffs as instructed every 6 hours as needed for wheezing/shortness of breath. clindamycin HCl 300 mg capsule 300 mg PO 4X/DAY 10 Days Qty: 40 0RF Primary Care Provider: Elmer Aguirre Referrals: Elmer Aguirre MD [Primary Care Provider] - Dentist,Your [STAFF PHYSICIAN] - Keep Marian appointment Disposition Disposition: Home, Self Care
== END 2022-07-23 06:26 | disposition home or self-care (01) ==
LOC: ED 06:11
PROVIDERS: Emergency Provider Emergency Medicine; PCP Internal Medicine; Visit Provider Emergency Medicine
DX: K08.89 Other specified disorders of teeth and supporting structures (principal); F17.210 Nicotine dependence, cigarettes, uncomplicated
CPT/HCPCS: 99282

== ENCOUNTER 2023-05-08 16:35 | Emergency (ER) | payer MEDICAID, SELFPAY ==
[2023-05-08 16:37] VITALS: BP 147/90; PULSE 121; RESP 20; TEMP 37.2; O2SAT 97; BMI 32.5
--- OUTSIDE RECORDS SUMMARY | 2023-05-08 16:57 | XMS RPT_ITS | CCD ---
Author Name Unknown Address [address] [place] [address] Organization [facility] Care Team Providers Care Architectural Design Professor Name Role Phone Unavailable Primary Care Provider Elmer Mayer MD Primary Care Provider [phone] Unavailable Primary Care Provider Elmer Mayer MD Primary Care Provider [phone] ELMER AGUIRRE Attending Unavailable PHYLLIS FELIX Referring Unavailable ELMER AGUIRRE Primary Care Unavailable KATIE UNDERWOOD Referring Unavailable ELMER AGUIRRE Primary Care Unavailable PHYLLIS FELIX Attending Unavailable KATIE UNDERWOOD Referring Unavailable ELMER AGUIRRE Primary Care Unavailable KATIE UNDERWOOD Attending Unavailable Medications Completed/Discontinued Medications Medication Drug Class(es) Dates Sig (Normalized) Sig (Original) [id number] 200 actuat albuterol 0.09 mg/actuat metered dose inhaler (16 sources) beta2-Adrenergic Agonist Start: 03-25-2022 End: 09-06-2022 take 2 puff(s) by inhalation every six hours as needed for wheezing albuterol HFA (PROVENTIL HFA, VENTOLIN HFA) 90 mcg/actuation inhaler Indications: Dyspnea, unspecified type Inhale 2 Puffs as instructed every 6 hours as needed for wheezing/shortness of breath. 1 Each 09/07/2022 Active Problems Active Problems Problem Classification Problem Date Documented Date Episodic/Chronic Anxiety disorders (14 sources) Anxiety; Translations: [Anxiety disorder, unspecified] Onset: 03-25-2022 03-25-2022 Chronic Esophageal disorders (2 sources) Gastroesophageal reflux disease; Translations: [Gastro-esophageal reflux disease without esophagitis] Chronic Hepatitis (1 source) Chronic hepatitis C; Translations: [Chronic viral hepatitis C] Chronic Mood disorders (14 sources) Mood disorder; Translations: [Unspecified mood [affective] disorder] Onset: 03-25-2022 03-25-2022 Chronic Other circulatory disease (1 source) Elevated blood-pressure reading without diagnosis of hypertension; Translations: [Elevated blood-pressure reading, without diagnosis of hypertension] Episodic Other lower respiratory disease (7 sources) Dyspnea; Translations: [Dyspnea, unspecified] Episodic Other lower respiratory disease (1 source) Shortness of breath; Translations: [SOB (shortness of breath)] Onset: 05-31-2022 Episodic Residual codes; unclassified (1 source) Procedure not done; Translations: [Procedure and treatment not carried out, unspecified reason] Episodic Substance-related disorders (1 source) Cigarette smoker ; Translations: [Nicotine dependence, cigarettes, uncomplicated] Chronic Past or Other Problems Problem Classification Problem Date Documented Da te Episodic/Chronic Hepatitis (14 sources) Viral hepatitis C; Translations: [Unspecified viral hepatitis C without hepatic coma] Onset: 03-25-2022 03-25-2022 Episodic Nonspecific chest pain (17 sources) Atypical chest pain; Translations: [Other chest pain] Onset: 03-25-2022 Episodic Substance-related disorders (14 sources) Substance abuse; Translations: [Other psychoactive substance use, unspecified, uncomplicated] Onset: 01-08-2019 03-25-2022 Episodic Results Test Name Value Interpretation Reference Range Facil ity Vital Signs Date Time Vital Sign Value Performing Clinician Kelsi kulkarni 05-31-2022 15:11-0500 Body height 172.7 cm Phyllis Felix MD Work Phone: [facility] 05-31-2022 15:11-0500 Body weight 100.25 kg Phyllis Felix MD Work Phone: [facility] 05-31-2022 15:11-0500 Diastolic blood pressure 82 mm[Hg] Phyllis Felix MD Work Phone: [facility] 05-31-2022 15:11-0500 Heart rate 128 /min Phyllis Felix MD Work Phone: [facility] 05-31-2022 15:11-0500 Respiratory rate 14 /min Phyllis Felix MD Work Phone: [facility] 05-31-2022 15:11-0500 SaO2% (BldA) [Mass fraction] 95 % Phyllis Felix MD Work Phone: [facility] 05-31-2022 15:11-0500 Systolic blood pressure 130 mm[Hg] Phyllis Felix MD Work Phone: [facility] 05-31-2022 14:48-0500 Body height 169.7 cm Pulm Wstr Work Phone: [facility] 05-31-2022 14:48-0500 Body weight 100.25 kg Pulm Wstr Work Phone: [facility] 05-31-2022 14:48-0500 Heart rate 138 /min Pulm Wstr Work Phone: [facility] 05-31-2022 14:48-0500 Respiratory rate 14 /min Pulm Wstr Work Phone: [facility] 05-31-2022 14:48-0500 SaO2% (BldA) [Mass fraction] 96 % Pulm Wstr Work Phone: [facility] 05-10-2022 13:38-0500 Body weight 101.61 kg Katie Older SENIOR TECHNICAL RECRUITER.POWERED BRIDGE SPECIALIST Work Phone: [facility] 05-10-2022 13:38-0500 Diastolic blood pressure 82 mm[Hg] Katie Older SENIOR TECHNICAL RECRUITER.POWERED BRIDGE SPECIALIST Work Phone: [facility] 05-10-2022 13:38-0500 Heart rate 113 /min Katie Older SENIOR TECHNICAL RECRUITER.POWERED BRIDGE SPECIALIST Work Phone: [facility] 05-10-2022 13:38-0500 Respiratory rate 20 /min Katie Older SENIOR TECHNICAL RECRUITER.POWERED BRIDGE SPECIALIST Work Phone: [facility] 05-10-2022 13:38-0500 SaO2% (BldA) [Mass fraction] 95 % Katie Older SENIOR TECHNICAL RECRUITER.POWERED BRIDGE SPECIALIST Work Phone: [facility] 05-10-2022 13:38-0500 Systolic blood pressure 118 mm[Hg] Katie Older SENIOR TECHNICAL RECRUITER.POWERED BRIDGE SPECIALIST Work Phone: [facility] 05-03-2022 09:04-0500 Body temperature 98.71 [degF] Grecia Bogner PA-C Work Phone: [facility] 05-03-2022 09:04-0500 Body weight 100.7 kg Grecia Bogner PA-C Work Phone: [facility] 05-03-2022 09:04-0500 Diastolic blood pressure 96 mm[Hg] Grecia Bogner PA-C Work Phone: [facility] 05-03-2022 09:04-0500 Heart rate 118 /min Grecai Bogner PA-C Work Phone: [facility] 05-03-2022 09:04-0500 Respiratory rate 18 /min Grecia Bogner PA-C Work Phone: [facility] 05-03-2022 09:04-0500 SaO2% (BldA) [Mass fraction] 97 % Grecia Bogner PA-C Work Phone: [facility] 05-03-2022 09:04-0500 Systolic blood pressure 152 mm[Hg] Grecia Bogner PA-C Work Phone: [facility] 03-25-2022 16:34-0500 Diastolic blood pressure 75 mm[Hg] Elmer Aguirre MD Work Phone: [facility] 03-25-2022 16:34-0500 Heart rate 97 /min Elmer Aguirre MD Work Phone: [facility] 03-25-2022 16:34-0500 Systolic blood pressure 130 mm[Hg] Elmer Aguirre MD Work Phone: [facility] 03-25-2022 16:27-0500 Body temperature 97.59 [degF] Elmer Aguirre MD Work Phone: [facility] 03-25-2022 16:27-0500 Body weight 98.43 kg Elmer Aguirre MD Work Phone: [facility] 03-25-2022 16:27-0500 Respiratory rate 16 /min Elmer Aguirre MD Work Phone: [facility] 03-25-2022 16:27-0500 SaO2% (BldA) [Mass fraction] 98 % Elmer Aguirre MD Work Phone: [facility] Encounters Encounter Date Encounter Type Care Provider Facility Start: 12-31-2022 Refill Phyllis Felix MD Work Phone: Pulmonary Medicine Procedures Date Procedure Procedure Detail Performing Clinician Start: 05-31-2022 Brncdilat rspse spmt ry pre&post-brncdilat admn Phyllis Felix MD Work Phone: Plan of Treatment Date Care Activity Detail Author Start: 2022 Influenza vaccination [facility] Start: 09-24-2022 Influenza vaccination INFLUENZA (#1) [facility] Immunizations Immunization Date Immunization Notes Care Provider Fa sidney 10-25-2014 tetanus and diphther ia toxoids, adsorbed, preservative free, for adult use (2 Lf of tetanus toxoid and 2 Lf of diphtheria toxoid) Elmer Aguirre MD Work Phone: [facility] Work Phone: Payers Date Payer Category Payer Unknown [id number] 2022 Unknown [id number] 2018 Medicaid [employer] [id number] 2018-Present [phone] [address] [place] [address] Medicaid [id number] 2018 Medicaid [id number] 2018 Medicaid [id number] Social History Date Type Detail Facility Start: 02-03-2015 Tobacco smoking stat us NHIS Smokes tobacco daily [facility] Work Phone: History of tobacco use Cigarette Smoker [facility] Start: 10-20-2021 End: 05-31-2022 Alcohol intake Current non-drinker of alcohol (finding) [facility] Start: 1985 Sex Assigned At Not on file [facility] Start: 10-10-2021 End: 10-20-2021 Exposure to SARS-CoV-2 (event) Not sure [facility] Start: 02-03-2015 End: 08-11-2022 Cigarettes smoked current (pack per day) - Reported 0.5 [facility] Start: 02-03-2015 Tobacco use and exposure Smokeless tobacco non-user [facility] Start: 05-31-2022 End: 08-11-2022 Tobacco use panel [facility] National Score (1-10 0), lower number is lower risk 80 [facility] Clinical Notes 10-20-2021 to 12-31-2022 Telephone Encounter - Deja Rincon LPN - 12/31/2022 10:03 AM EDTTelephone Encounter - Aliza Olivarez RN - 12/31/2022 9:40 AM EDTTelephone Encounter - Aliza Olivarez RN - 09/06/2022 3:34 PM EDT Note Date & Type Note Facility 12-31-2022 Miscellaneous Notes [facility] pended as [facility] requires lisandro ESPARZA/DIGNA Rincon LPN Patient is asking for a call when advair is approved. Patient informed that a prior authorization may be needed. Patient phones requesting refills as follows: Requested Prescriptions Pending Prescriptions Disp Refills montelukast (SINGULAIR) 10 mg tablet 30 tablet 5 Sig: Take 1 tablet by mouth daily at bedtime. fluticasone-salmeterol (ADVAIR DISKUS) 500-50 mcg/dose dsdv 1 Each 5 Sig: Inhale 1 Puff as instructed two times a day. RINSE AND GARGLE MOUTH WITH WATER AFTER EACH USE. Please review and advise. Aliza Olivarez RN documented in this encounter [facility] 09-06-2022 Miscellaneous Notes Patient phones requesting refills as follows: Previously ordered by PCP but no longer has one. Requested Prescriptions Pending Prescriptions Disp Refills albuterol HFA (PROVENTIL HFA, VENTOLIN HFA) 90 mcg/actuation inhaler 1 Each 0 Sig: Inhale 2 Puffs as instructed every 6 hours as needed for wheezing/shortness of breath. Please review and advise. Aliza Olivarez RN documented in this encounter [facility] 07-07-2022 Miscellaneous Notes Spoke with [facility], confirmation of Advair RX received to replace Breo. Awaiting patient vegetable picker. Deja Rincon LPN Called [facility] PA line. Formulary was recently updated on 06/26 and Breo was removed from preferred drug list. Patient must trial two preferred medications for 14 days each prior to obtaining PA for Breo. Alternatives for ICC/LABA are Dulera, Advair MELISSA or Symbicort MELISSA Deja Rincon LPN Pt called in [facility] pharmacy informed him the Breo Ellipta RX needs a prior authorization. Please advise. documented in this encounter [facility] 07-06-2022 Miscellaneous Notes Patient notified of results and recommendations. Deja Rincon LPN Can you let patient know that he has asthma and allergies but no allergy to mold. He will need to start on inhaled therapy and Singulair. One he starts inhaled therapy, he can return to work. Interpretation: Initial spirometry showed no large airway obstructive ventilatory defect. The patient was then given increasingly concentrated doses of methacholine in a stepwise fashion using an ATS protocol. The patient had a significant reduction in FEV1 by 21% and a calculated PD20 of 0.086. Impression: Positive bronchoprovocation study in a range consistent with the diagnosis of asthma. Results requested from [facility] Deja Rincon LPN Patient called. Verified name and date of . Patient would like results of Methacholine challenge testone on Tuesday and understands that his return to work day depends on results of test. Please review and advise. Ana Morton LPN documented in this encounter [facility] 06-28-2022 Miscellaneous Notes Informed patient that short term disability paperwork was faxed this morning. Patient verbalized understanding. Patient would liked information on what paperwork said . Gabby Orlando LPN Faxed paperwork to Deja Rincon LPN Pt. calling in states employer requesting pt to return to work today. Pt states he is unable to do this as he is not feeling any better and has not had the test yet. Would like a letter from Dr. Felix stating that he is not able to return to work yet. Please advise/ send letter. Joan Be, RN Verified with June at [facility], patient is scheduled for 07/02 for YON. Received form from patient's employer and completed form for MD signature. In provider mailbox for review. Deja Rincon LPN Spoke with patient. Noted form was completed and faxed on 06/22 with date of next procedure listed as today, 06/24. Patient states [facility] had rescheduled his methacholine challenge due to a dental infection, and it is now scheduled for next , but he forgot to notify our office. He will need to have a new form completed if his leave needs extended for work. Fax number given to patient for our office. Deja Rincon LPN Patient called in stating he dropped off short term disability forms at the desk on 06/21/2022. His company notified him that they have not received anything back. I advised patient that we have 7-10 business days to complete any forms dropped off. He would like to speak to pulmonology nurse. Patient can be reached at [phone]. documented in this encounter [facility] 06-18-2022 Miscellaneous Notes Last seen 05/10/22. Next appt is 08/11/22. Patient has been identified by name and date of : Yes Requested Prescriptions Pending Prescriptions Disp Refills albuterol HFA (PROVENTIL HFA, VENTOLIN HFA) 90 mcg/actuation inhaler 1 Each 0 Sig: Inhale 2 Puffs as instructed every 6 hours as needed for wheezing/shortness of breath. RX INSTRUCTIONS: Patient aware RX will be sent to pharmacy. No need to notify patient. Evelyne Maurice Pss documented in this encounter [facility] 06-14-2022 Miscellaneous Notes Patient notified re: same. Deja Rincon LPN Images from the original note were not included. Phyllis Felix MD You 14 minutes ago (4:41 PM) They should call him but I would recommend he calls the scheduling dept at [facility] Patient called in question if [facility]. Please Advise and call patient. Gabby Orlando LPN documented in this encounter [facility] 05-31-2022 Note HNO ID: [id number] Author: Phyllis Felix MD Service: ? Author Type: Physician Type: Progress Notes Filed: 05/31/2022 4:54 PM Note Text: . Respiratory Sheldon Note Patient name: Tonio Baumann PCP: Elmer Aguirre MD Referring Physician: Same Consultation requested by Dr. Aguirre for an opinion regarding shortness of breath. My final recommendations will be communicated back to the requesting physician by way of shared Medical record or letter to requesting physician via [place] mail. CC: SOB HPI: Tonio Baumann 36 year old obese male current smoker with PMH significant for polysubstance abuse (narcotics, heroin, benzodiazepines, alcohol) s/p detox, Hep C, anxiety disorder who is being referred for SOB. No prior history of asthma, allergies, pneumonia. States he was well until 2 months ago when he started a new job. 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 Having intermittent attacks of severe shortness of breath. He feels chest tightness, unable to take a deep breath, has heard some wheezing. No cough or chest pain. Has albuterol inhaler which he has used during these attacks but has not felt any relief. No nocturnal awakenings. Currently on leave from his job due to the frequency of these attacks. No other obvious trigger for his shortness of breath. No dyspnea on exertion outside of his work environment. No shortness of breath triggered by changes in the weather. He has not been ill with any upper respiratory infection nor has he had COVID. Chest x-ray normal, stress test negative. Patient is concerned that he may be allergic to mold. He he does feel better when he is not at work. DATA: PFT: Review of spirometry shows mild restriction and no obstruction Labs: Last laboratory testing 03/2022 showed normal chemistries, CBC Imaging / Diagnostic Studies: CXR C 02/2022 reviewed and is unremarkable Echocardiogram 10/2021: Interpretation Summary Left ventricular systolic function is normal. The estimated ejection fraction is 65 %. Trivial mitral valve insufficiency. Trivial tricuspid valve insufficiency. Trivial pulmonic valve insufficiency. Unable to estimate RV systolic pressure due to insufficient tricuspidregurgitant envelope. No evidence for diastolic dysfunction. PAST MEDICAL HISTORY Diagnosis Date Generalized anxiety disorder Hepatitis C Polysubstance abuse (HCC) ALLERGIES No Known Allergies omeprazole (PRILOSEC) 20 mg capsule Take 1 capsule by mouth daily before breakfast. 1/2 hr before meal. aspirin 325 mg tablet Take 325 mg by mouth once daily. Takes up to three times daily as needed albuterol HFA (PROVENTIL HFA, VENTOLIN HFA) 90 mcg/actuation inhaler Inhale 2 Puffs as instructed every 6 hours as needed for wheezing/shortness of breath. QUEtiapine (SEROQUEL) 300 mg tablet Take 300 mg by mouth three times daily. 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 EYES: No diplopia or blurry vision. CARDIOVASCULAR: Some chest pain/pressure, tachycardia, edema PULM: See HPI GI: No dysphagia/odynophagia, problematic reflux, constipation, diarrhea, changes in stool habits : No urinary complaints, including dysuria, gross hematuria or pyuria. NEURO: No new balance problems, peripheral weakness/paresthesias or numbness of concern. MUSC-SKEL: No joint pain, swelling, or erythema. PSY: Anxiety INTEGUMENTARY: No new skin changes, rashes PHYSICAL EXAMINATION: BP 130/82 Pulse 128 Resp 14 Ht 5' 8 (1.73m) Wt 221 lb (100.2kg) SpO2 95% BMI 33.61 kg/(m2). General: Age-appropriate male somewhat anxious Skin: No rashes, multiple tattoos Eyes: Sclera, conjunctiva normal HEENT: Adequate dentition, no oral lesions or thrush Neck: No JVD, no masses, no thyromegaly Chest wall: Normal configuration Lungs: Not labored, normal to percussion, no wheezes or crackles Cardiac: Tachycardia, regular rate and rhythm, no murmurs Extremities: No edema, no clubbing Neuro: Alert and oriented, no (more content not included)... [facility] 05-31-2022 Note HNO ID: [id number] Author: TESS Duncan Service: ? Author Type: Respiratory Therapist Type: Progress Notes Filed: 05/31/2022 3:02 PM Note Text: PULM FUNCTION SMARTBLOCK: Provider: Phyllis Felix MD Assisting Tech: TESS Duncan Spirometry: 1 [facility] 05-31-2022 History of Present illness Narrative Images from the original note were not included. . Respiratory Sheldon Note Patient name: Tonio Baumann PCP: Elmer Aguirre MD Referring Physician: Same Consultation requested by Dr. Aguirre for an opinion regarding shortness of breath. My final recommendations will be communicated back to the requesting physician by way of shared Medical record or letter to requesting physician via [place] mail. CC: SOB HPI: Tonio Baumann 36 year old obese male current smoker with PMH significant for polysubstance abuse (narcotics, heroin, benzodiazepines, alcohol) s/p detox, Hep C, anxiety disorder who is being referred for SOB. No prior history of asthma, allergies, pneumonia. States he was well until 2 months ago when he started a new job. 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 Having intermittent attacks of severe shortness of breath. He feels chest tightness, unable to take a deep breath, has heard some wheezing. No cough or chest pain. Has albuterol inhaler which he has used during these attacks but has not felt any relief. No nocturnal awakenings. Currently on leave from his job due to the frequency of these attacks. No other obvious trigger for his shortness of breath. No dyspnea on exertion outside of his work environment. No shortness of breath triggered by changes in the weather. He has not been ill with any upper respiratory infection nor has he had COVID. Chest x-ray normal, stress test negative. Patient is concerned that he may be allergic to mold. He he does feel better when he is not at work. DATA: PFT: Review of spirometry shows mild restriction and no obstruction Labs: Last laboratory testing 03/2022 showed normal chemistries, CBC Imaging / Diagnostic Studies: CXR C 02/2022 reviewed and is unremarkable Echocardiogram 10/2021: Interpretation Summary Left ventricular systolic function is normal. The estimated ejection fraction is 65 %. Trivial mitral valve insufficiency. Trivial tricuspid valve insufficiency. Trivial pulmonic valve insufficiency. Unable to estimate RV systolic pressure due to insufficient tricuspidregurgitant envelope. No evidence for diastolic dysfunction. PAST MEDICAL HISTORY Diagnosis Date Generalized anxiety disorder Hepatitis C Polysubstance abuse (HCC) ALLERGIES No Known Allergies omeprazole (PRILOSEC) 20 mg capsule Take 1 capsule by mouth daily before breakfast. 1/2 hr before meal. aspirin 325 mg tablet Take 325 mg by mouth once daily. Takes up to three times daily as needed albuterol HFA (PROVENTIL HFA, VENTOLIN HFA) 90 mcg/actuation inhaler Inhale 2 Puffs as instructed every 6 hours as needed for wheezing/shortness of breath. QUEtiapine (SEROQUEL) 300 mg tablet Take 300 mg by mouth three times daily. 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 EYES: No diplopia or blurry vision. CARDIOVASCULAR: Some chest pain/pressure, tachycardia, edema PULM: See HPI GI: No dysphagia/odynophagia, problematic reflux, constipation, diarrhea, changes in stool habits : No urinary complaints, including dysuria, gross hematuria or pyuria. NEURO: No new balance problems, peripheral weakness/paresthesias or numbness of concern. MUSC-SKEL: No joint pain, swelling, or erythema. PSY: Anxiety INTEGUMENTARY: No new skin changes, rashes PHYSICAL EXAMINATION: BP 130/82 Pulse 128 Resp 14 Ht 5' 8 (1.73m) Wt 221 lb (100.2kg) SpO2 95% BMI 33.61 kg/(m^2). General: Age-appropriate male somewhat anxious Skin: No rashes, multiple tattoos Eyes: Sclera, conjunctiva normal HEENT: Adequate dentition, no oral lesions or thrush Neck: No JVD, no masses, no thyromegaly Chest wall: Normal configuration Lungs: Not labored, normal to percussion, no wheezes or crackles Cardiac: Tachycardia, regular rate and rhythm, no murmurs Extremities: No edema, no clubbing Neuro: Alert and oriented, no focal findings. Somewhat tremulous Lymph nodes: No cervical or supraclavicular adenopathy Assessment/Plan: 1. Shortness of breath -Attacks of shortness of breath worsened by his work environment. Pulmonary function test today did not show significant obstruction but this does not rule out bronchospasm -Definitive methacholine challenge testing -Laboratory testing for IgE antibodies to variety of molds -Received short-term disability forms to complete 2. Cigarette smoker -Current smoker without sequelae of COPD -Smoking cessation strongly recommended Phyllis Felix MD Respiratory Sheldon documented in this encounter [facility] 05-31-2022 History of Present illness Narrative PULM FUNCTION SMARTBLOCK: Provider: Phyllis Felix MD Assisting Tech: TESS Duncan Spirometry: 1 documented in this encounter [facility] 05-10-2022 Note HNO ID: [id number] Author: Katie Underwood APRN.LOIS Service: ? Author Type: Nurse Practitioner Type: Progress Notes Filed: 05/10/2022 2:20 PM Note Text: CC: Patient presents with: Follow Up: Chest pain, SOB HPI Tonio Baumann is a 36 year old male who presents today for above. He has no PCP, scheduled to establish here in July. He was seen for chest pain and SOB x 6 months on 03/25. Previous testing ordered by sap integration architect included echocardiogram and stress test that were normal. Symptoms were not improving. Attributed to possible anxiety vs bronchospasm. Prescribed albuterol inhaler to use as needed and advised to follow-up with his mental health provider regarding anxiety. He returned to primary care on 05/03 for ongoing chest pain and SOB. Albuterol inhaler was not helping. He was started on Prilosec 40 mg for possible GERD as cause of symptoms. Today patient reports there has been some improvement in chest pain since starting Prilosec but has not resolved and still gets episodes of SOB and chest tightness. Feels like he can't catch his breath and throat closes up. Occurring with rest and exertion. Since cutting back to 1/2 PPD of cigarettes episodes are not occurring as often. No history of asthma or allergies. No secondhand smoke exposure. 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 Treating with OTC nasal sprays. He also reports Albuterol inhaler worked well for the first time today when he had an attack. Denies history of known COVID infection prior to onset of symptoms. He has a history of anxiety but feels it is well controlled and denies panic attacks. REVIEW OF SYSTEMS GENERAL: Negative for malaise, significant weight loss, fever, chills, night sweats RESPIRATORY: Negative for hemoptysis, cough and wheezing CARDIOVASCULAR: Negative for leg swelling, palpitations, orthopnea, and paroxysmal nocturnal dyspnea History reviewed. No pertinent past medical history. PAST SURGICAL HISTORY Procedure Laterality Date HAND SURGERY HX october 11, 2014 [facility] ALLERGIES Patient has no known allergies. MEDICATIONS omeprazole (PRILOSEC) 20 mg capsule Take 1 capsule by mouth daily before breakfast. 1/2 hr before meal. aspirin 325 mg tablet Take 325 mg by mouth once daily. albuterol HFA (PROVENTIL HFA, VENTOLIN HFA) 90 mcg/actuation inhaler Inhale 2 Puffs as instructed every 6 hours as needed for wheezing/shortness of breath. QUEtiapine (SEROQUEL) 300 mg tablet Take 300 mg by mouth three times daily. ZUBSOLV 8.6-2.1 mg subl DISSOLVE 1 (ONE) TABLET UNDER THE TONGUE EVERY DAY FAMILY HISTORY Problem Relation Age of Onset Psychiatry Mother Hypertension Mother Cancer Mother ovarian Social History Tobacco Use Smoking status: Every Day Packs/day: 0.50 Years: 15.00 Pack years: 7.50 Types: Cigarettes Smokeless tobacco: Never Substance Use Topics Alcohol use: No Drug use: Yes Comment: opiates, heroin PHYSICAL EXAM BP 118/82 Pulse 113 Resp 20 Wt 101.6 kg (224 lb) SpO2 95% BMI 35.08 kg/m? General Appearance: well appearing, in no acute distress, alert Skin: Skin color, texture, turgor normal for age; Eyes: conjunctiva pink and moist, no icterus, sclera white, non-injected Nose/sinus: Nares normal. Septum midline. Mucosa normal. No drainage. Neck: Neck supple, No adenopathy Oropharynx: lips normal without lesions, tongue midline and normal, soft palate, uvula, and tonsils normal Lymph nodes: No supraclavicular lymphadenopathy Lungs: Lungs clear to auscultation. No wheezing, rhonchi, rales. Heart: RRR without murmur, gallop, or rubs. No ectopy ASSESSMENT/PLAN: 1. Shortness of breath - ICD9: 786.05, ICD10: R06.02 (primary diagnosis) Possible asthma/allergy - CONSULT TO PULMONARY MEDICINE for further evaluation and recommendations 2. Chest pain, unspecified type - ICD9: 786.50, ICD10: R07.9 Extensive cardiac work-up negative. Prilosec is helping. See plan above. Prescription instructions reviewed with patient as applicable. Potential red flag symptoms discussed with the patient. Reviewed appropriate action plan to take if red flag symptoms occur. Patient agreeable to treatment plan. Katie Underwood APRN.[facility] 05-10-2022 History of Present illness Narrative CC: Patient presents with: Follow Up: Chest pain, SOB HPI Tonio Baumann is a 36 year old male who presents today for above. He has no PCP, scheduled to establish here in July. He was seen for chest pain and SOB x 6 months on 03/25. Previous testing ordered by sap integration architect included echocardiogram and stress test that were normal. Symptoms were not improving. Attributed to possible anxiety vs bronchospasm. Prescribed albuterol inhaler to use as needed and advised to follow-up with his mental health provider regarding anxiety. He returned to primary care on 05/03 for ongoing chest pain and SOB. Albuterol inhaler was not helping. He was started on Prilosec 40 mg for possible GERD as cause of symptoms. Today patient reports there has been some improvement in chest pain since starting Prilosec but has not resolved and still gets episodes of SOB and chest tightness. Feels like he can't catch his breath and throat closes up. Occurring with rest and exertion. Since cutting back to 1/2 PPD of cigarettes episodes are not occurring as often. No history of asthma or allergies. No secondhand smoke exposure. 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 Treating with OTC nasal sprays. He also reports Albuterol inhaler worked well for the first time today when he had an attack. Denies history of known COVID infection prior to onset of symptoms. He has a history of anxiety but feels it is well controlled and denies panic attacks. REVIEW OF SYSTEMS GENERAL: Negative for malaise, significant weight loss, fever, chills, night sweats RESPIRATORY: Negative for hemoptysis, cough and wheezing CARDIOVASCULAR: Negative for leg swelling, palpitations, orthopnea, and paroxysmal nocturnal dyspnea History reviewed. No pertinent past medical history. PAST SURGICAL HISTORY Procedure Laterality Date HAND SURGERY HX october 11, 2014 [facility] ALLERGIES Patient has no known allergies. MEDICATIONS omeprazole (PRILOSEC) 20 mg capsule Take 1 capsule by mouth daily before breakfast. 1/2 hr before meal. aspirin 325 mg tablet Take 325 mg by mouth once daily. albuterol HFA (PROVENTIL HFA, VENTOLIN HFA) 90 mcg/actuation inhaler Inhale 2 Puffs as instructed every 6 hours as needed for wheezing/shortness of breath. QUEtiapine (SEROQUEL) 300 mg tablet Take 300 mg by mouth three times daily. ZUBSOLV 8.6-2.1 mg subl DISSOLVE 1 (ONE) TABLET UNDER THE TONGUE EVERY DAY FAMILY HISTORY Problem Relation Age of Onset Psychiatry Mother Hypertension Mother Cancer Mother ovarian Social History Tobacco Use Smoking status: Every Day Packs/day: 0.50 Years: 15.00 Pack years: 7.50 Types: Cigarettes Smokeless tobacco: Never Substance Use Topics Alcohol use: No Drug use: Yes Comment: opiates, heroin PHYSICAL EXAM BP 118/82 Pulse 113 Resp 20 Wt 101.6 kg (224 lb) SpO2 95% BMI 35.08 kg/m General Appearance: well appearing, in no acute distress, alert Skin: Skin color, texture, turgor normal for age; Eyes: conjunctiva pink and moist, no icterus, sclera white, non-injected Nose/sinus: Nares normal. Septum midline. Mucosa normal. No drainage. Neck: Neck supple, No adenopathy Oropharynx: lips normal without lesions, tongue midline and normal, soft palate, uvula, and tonsils normal Lymph nodes: No supraclavicular lymphadenopathy Lungs: Lungs clear to auscultation. No wheezing, rhonchi, rales. Heart: RRR without murmur, gallop, or rubs. No ectopy ASSESSMENT/PLAN: 1. Shortness of breath - ICD9: 786.05, ICD10: R06.02 (primary diagnosis) Possible asthma/allergy - CONSULT TO PULMONARY MEDICINE for further evaluation and recommendations 2. Chest pain, unspecified type - ICD9: 786.50, ICD10: R07.9 Extensive cardiac work-up negative. Prilosec is helping. See plan above. Prescription instructions reviewed with patient as applicable. Potential red flag symptoms discussed with the patient. Reviewed appropriate action plan to take if red flag symptoms occur. Patient agreeable to treatment plan. Katie Underwood APRN.LOIS documented in this encounter [facility] 05-03-2022 Note HNO ID: [id number] Author: Grecia Clark PA-C Service: ? Author Type: Physician Lead Loader Type: Progress Notes Filed: 05/03/2022 11:52 AM Note Text: 05/03/2022 Patient presents with: Breathing Problem: sob, chest pain, sob attacks x months, seen in ed SUBJECTIVE: This is a 36 year old that is here [facility] hepatitis C today for Complaint(s) of episodes of difficulty breathing x 6 months. Associated with chest pain at times. October 2021 normal stress testing. Described as tight feeling and possible wheezing at times per patients. No personal history of asthma. He did see primary care and was prescribed albuterol which did not help alleviate symptoms. He was seen in the ER last week on Tuesday and had a negative cardiac workup with a normal EKG and normal troponin's. Normal CXR in ER. Patient was PERC negative, no d-dimer obtained. + every day smoker. No other drug use, past history IV drug use without use for >5 years. No anxiety associated with these episodes per patient. Has had panic attacks previously and this feels different. Occurring a few times a week. Last episode was this morning at work. Work is strenuous and does a lot of heavy lifting. Episodes last for approximately 20-30 minutes. No new medications. No new stressors. No chest pain currently. Denies fever/chills, leg swelling, calf pain, history of PE/DVT. Pateint does report episodes of heart burn, can occur every few days and food dependent. Drinks coffee daily-3 cups. He does eat a lot of wings per patient, including spicy wings. Occasional cough associated at times. Takes tums occasionally. Denies SI, HI. Hepatitis C-patient is not undergoing treatment at this time. Denies abdominal pain, vomiting, change in color/character stools, diarrhea. No past medical history on file. ALLERGIES Patient has no known allergies. MEDICATIONS Current Outpatient Medications Medication Sig aspirin 325 mg tablet Take 325 mg by mouth once daily. albuterol HFA (PROVENTIL HFA, VENTOLIN HFA) 90 mcg/actuation inhaler Inhale 2 Puffs as instructed every 6 hours as needed for wheezing/shortness of breath. QUEtiapine (SEROQUEL) 300 mg tablet Take 300 mg by mouth three times daily. ZUBSOLV 8.6-2.1 mg subl DISSOLVE 1 (ONE) TABLET UNDER THE TONGUE EVERY DAY No current facility-administered medications for this visit. SOCIAL HISTORY Social History Tobacco Use Smoking status: Every Day Packs/day: 0.50 Years: 15.00 Pack years: 7.50 Types: Cigarettes Smokeless tobacco: Never Substance Use Topics Alcohol use: No Drug use: Yes Comment: opiates, heroin REVIEW OF SYSTEMS See HPI OBJECTIVE: BP 152/96 Pulse 118 Temp 37.1 ?C (98.7 ?F) Resp 18 Wt 100.7 kg (222 lb) SpO2 97% BMI 34.77 kg/m? APPEARANCE Well appearing, alert, in no acute distress, well-hydrated, well nourished. EYES PERRLA, conjunctiva and sclera normal. EARS External ears normal, canals clear NOSE/SINUS Nares normal. Septum midline. Mucosa normal. No drainage or sinus tenderness. THROAT normal, no erythema NECK Supple, no adenopathy; HEART RRR with normal S1 and S2, LUNG clear to auscultation ABDOMEN bowel sounds normoactive, no bruits, soft, non-tender, non-distended, without organomegaly or palpable masses, no tenderness to palpation EXTREMITIES no LE edema. No calf TTP. Negative Homans'. BP w/Orthostatic Vitals Date and Time Orthostatic BP Orthostatic Pulse BP Pulse BP Position BP Site BP Cuff Size 02/06/23 1002 132/88 95 -- -- -- -- -- 05/03/22 1001 132/91 95 -- -- -- -- -- 05/03/22 1000 132/90 95 -- -- -- -- -- 05/03/22920 -- 102 -- -- -- -- -- 05/03/22903 -- -- 152/96 118 -- -- -- Peak Flow Date and Time PF Resp 05/03/22903 -- 18 ASSESSMENT/PLAN: 1. SOB (shortness of breath) - ICD9: 786.05, ICD10: R06.02 (primary diagnosis) Patient has tried albuterol without improvement. ER workup for cardiac negative in ED last week. Start prilosec to treat current acid reflux symptoms Recommend f/u with PCP office to discuss other possible workup and possible consult to pulmonary. 2. Chronic hepatitis C without hepatic coma (HCC) - ICD9: 070.54, ICD10: B18.2 Recommend f/u to discuss referral for treatment - COMP METABOLIC PANEL 3. Gastroesophageal reflux disease, unspecified whether esophagitis present - ICD9: 530.81, ICD10: K21.9 - Discussed lifestyle modifications including losing weight, limiting caffeine, no meals three hours before sleep, and head of bed elevation - Begin treatment with Prilosec 20 mg QD - OMEPRAZOLE 20 MG CAPSULE,DELAYED RELEASE 4. Chest pain, unspecified type - ICD9: 786.50, ICD10: R07.9 Atypical chest pain, symptoms are not consistent with cardiac ischemia due to negative cardiac work up. possible etiology include GERD, musculoskeletal, and Anxiety Start prilosec. No chest pain currently. Recommend f/u with PCP as above Reviewed red flags and when to seek (more content not included)... [facility] 05-03-2022 History of Present illness Narrative 05/03/2022 Patient presents with: Breathing Problem: sob, chest pain, sob attacks x months, seen in ed weds SUBJECTIVE: This is a 36 year old that is here PMH hepatitis C today for Complaint(s) of episodes of difficulty breathing x 6 months. Associated with chest pain at times. October 2021 normal stress testing. Described as tight feeling and possible wheezing at times per patients. No personal history of asthma. He did see primary care and was prescribed albuterol which did not help alleviate symptoms. He was seen in the ER last week on Tuesday and had a negative cardiac workup with a normal EKG and normal troponin's. Normal CXR in ER. Patient was PERC negative, no d-dimer obtained. + every day smoker. No other drug use, past history IV drug use without use for >5 years. No anxiety associated with these episodes per patient. Has had panic attacks previously and this feels different. Occurring a few times a week. Last episode was this morning at work. Work is strenuous and does a lot of heavy lifting. Episodes last for approximately 20-30 minutes. No new medications. No new stressors. No chest pain currently. Denies fever/chills, leg swelling, calf pain, history of PE/DVT. Pateint does report episodes of heart burn, can occur every few days and food dependent. Drinks coffee daily-3 cups. He does eat a lot of wings per patient, including spicy wings. Occasional cough associated at times. Takes tums occasionally. Denies SI, HI. Hepatitis C-patient is not undergoing treatment at this time. Denies abdominal pain, vomiting, change in color/character stools, diarrhea. No past medical history on file. ALLERGIES Patient has no known allergies. MEDICATIONS Current Outpatient Medications Medication Sig aspirin 325 mg tablet Take 325 mg by mouth once daily. albuterol HFA (PROVENTIL HFA, VENTOLIN HFA) 90 mcg/actuation inhaler Inhale 2 Puffs as instructed every 6 hours as needed for wheezing/shortness of breath. QUEtiapine (SEROQUEL) 300 mg tablet Take 300 mg by mouth three times daily. ZUBSOLV 8.6-2.1 mg subl DISSOLVE 1 (ONE) TABLET UNDER THE TONGUE EVERY DAY No current facility-administered medications for this visit. SOCIAL HISTORY Social History Tobacco Use Smoking status: Every Day Packs/day: 0.50 Years: 15.00 Pack years: 7.50 Types: Cigarettes Smokeless tobacco: Never Substance Use Topics Alcohol use: No Drug use: Yes Comment: opiates, heroin REVIEW OF SYSTEMS See HPI OBJECTIVE: BP 152/96 Pulse 118 Temp 37.1 C (98.7 F) Resp 18 Wt 100.7 kg (222 lb) SpO2 97% BMI 34.77 kg/m APPEARANCE Well appearing, alert, in no acute distress, well-hydrated, well nourished. EYES PERRLA, conjunctiva and sclera normal. EARS External ears normal, canals clear NOSE/SINUS Nares normal. Septum midline. Mucosa normal. No drainage or sinus tenderness. THROAT normal, no erythema NECK Supple, no adenopathy; HEART RRR with normal S1 and S2, LUNG clear to auscultation ABDOMEN bowel sounds normoactive, no bruits, soft, non-tender, non-distended, without organomegaly or palpable masses, no tenderness to palpation EXTREMITIES no LE edema. No calf TTP. Negative Homans'. BP w/Orthostatic Vitals Date and Time Orthostatic BP Orthostatic Pulse BP Pulse BP Position BP Site BP Cuff Size 05/03/22 1002 132/88 95 -- -- -- -- -- 05/03/22 1001 132/91 95 -- -- -- -- -- 05/03/22 1000 132/90 95 -- -- -- -- -- 05/03/22 0921 -- 102 -- -- -- -- -- 05/03/22 0904 -- -- 152/96 118 -- -- -- Peak Flow Date and Time PF Resp 05/03/22903 -- 18 ASSESSMENT/PLAN: 1. SOB (shortness of breath) - ICD9: 786.05, ICD10: R06.02 (primary diagnosis) Patient has tried albuterol without improvement. ER workup for cardiac negative in ED last week. Start prilosec to treat current acid reflux symptoms Recommend f/u with PCP office to discuss other possible workup and possible consult to pulmonary. 2. Chronic hepatitis C without hepatic coma (HCC) - ICD9: 070.54, ICD10: B18.2 Recommend f/u to discuss referral for treatment - COMP METABOLIC PANEL 3. Gastroesophageal reflux disease, unspecified whether esophagitis present - ICD9: 530.81, ICD10: K21.9 - Discussed lifestyle modifications including losing weight, limiting caffeine, no meals three hours before sleep, and head of bed elevation - Begin treatment with Prilosec 20 mg QD - OMEPRAZOLE 20 MG CAPSULE,DELAYED RELEASE 4. Chest pain, unspecified type - ICD9: 786.50, ICD10: R07.9 Atypical chest pain, symptoms are not consistent with cardiac ischemia due to negative cardiac work up. possible etiology include GERD, musculoskeletal, and Anxiety Start prilosec. No chest pain currently. Recommend f/u with PCP as above Reviewed red flags and when to seek care sooner in ER 5. Elevated BP without diagnosis of hypertension - ICD9: 796.2, ICD10: R03.0 - Encouraged dietary sodium restriction/DASH diet - Recommended regular aerobic exercise. - Recommend home blood pressure monitoring, to bring results in on next visit - Goal of BP <130/80 The patient indicates understanding of these issues and agrees with the plan. Reviewed red flags and when to seek care sooner. I spent a total of 45 minutes on the date of the service which included preparing to see the patient, [id number] patient care, completing clinical documentation, obtaining and/or reviewing separately obtained history, performing a medically appropriate examination, counseling and educating the patient/family/caregiver, and ordering medications, tests, or procedures. Grecia Clark PA-C documented in this encounter [facility] 03-25-2022 Note HNO ID: [id number] Author: Elmer Aguirre MD Service: ? Author Type: Physician Type: Progress Notes Filed: 03/25/2022 5:16 PM Note Text: This note was created using Doculynxter. Subjective Patient presents with: ER F/U PCP No primary care provider on file. Tonio Baumann is a 36 year old male. He has been having recurrent left upper chest pains for 6 months. This was stable. He's had negative chest x rays, troponins, d dimer in the ER. EKG was normal. In October, he had a normal stress test and echo. 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 He was more concerned about episodic dyspnea where he will feel his airway closing, possibly have some wheezing, and relief after several minutes of pacing his breathing. He had no cough, no asthma, no allergies. He was a smoker. He has chronic mood disorder and anxiety. He goes to the [facility] for treatment and various medications have not been effective. He was on opioid maintenance treatment from 180. Review of Systems Constitutional: Negative. HENT: Negative for congestion, rhinorrhea, sneezing, sore throat, trouble swallowing and voice change. Respiratory: Positive for chest tightness. Negative for cough and wheezing. Cardiovascular: Negative for palpitations and leg swelling. Gastrointestinal: Negative. ACTIVE PROBLEM LIST Anxiety Unspecified Mood (Affective) Disorder (Hcc) Substance Use Disorder Viral Hepatitis C Chest Pain Current Outpatient Medications Medication Sig aspirin 325 mg tablet Take 325 mg by mouth once daily. QUEtiapine (SEROQUEL) 300 mg tablet Take 300 mg by mouth three times daily. ZUBSOLV 8.6-2.1 mg subl DISSOLVE 1 (ONE) TABLET UNDER THE TONGUE EVERY DAY albuterol HFA (PROVENTIL HFA, VENTOLIN HFA) 90 mcg/actuation inhaler Inhale 2 Puffs as instructed every 6 hours as needed for wheezing/shortness of breath. No current facility-administered medications for this visit. Objective BP 130/75 (BP Site: Left Arm, BP Position: Sitting, BP Cuff Size: Large Adult) Pulse 97 Temp 36.4 ?C (97.6 ?F) (Temporal) Resp 16 Wt 98.4 kg (217 lb) SpO2 98% BMI 33.99 kg/m? Physical Exam Constitutional: General: He is not in acute distress. Appearance: He is obese. He is not ill-appearing. HENT: Nose: Nose normal. Mouth/Throat: Pharynx: Oropharynx is clear. Eyes: Extraocular Movements: Extraocular movements intact. Conjunctiva/sclera: Conjunctivae normal. Cardiovascular: Rate and Rhythm: Normal rate and regular rhythm. Heart sounds: No murmur heard. No gallop. Pulmonary: Effort: No respiratory distress. Breath sounds: Rhonchi present. No wheezing or rales. Musculoskeletal: Cervical back: Neck supple. Right lower leg: No edema. Left lower leg: No edema. Lymphadenopathy: Cervical: No cervical adenopathy. Neurological: Mental Status: He is alert. ER reports reviewed. Assessment and Plan 1. Dyspnea, unspecified type - ICD9: 786.09, ICD10: R06.00 (primary diagnosis) Differential diagnosis is bronchospasm versus panic anxiety attack. Shared medical decision making was done. We agreed to empiric trial of bronchodilator. - The proper method of use, as well as anticipated side effects, of this inhaler are discussed and demonstrated to the patient. - ALBUTEROL SULFATE HFA 90 MCG/ACTUATION AEROSOL INHALER. 2. Chest pain, atypical - ICD9: 786.59, ICD10: R07.89 Reviewed negative work up. - Discuss anxiety with mental health provider. Elmer Aguirre MD [facility] 03-25-2022 History of Present illness Narrative This note was created using [employer]. Subjective Patient presents with: ER F/U PCP No primary care provider on file. Tonio Baumann is a 36 year old male. He has been having recurrent left upper chest pains for 6 months. This was stable. He's had negative chest x rays, troponins, d dimer in the ER. EKG was normal. In October, he had a normal stress test and echo. 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 He was more concerned about episodic dyspnea where he will feel his airway closing, possibly have some wheezing, and relief after several minutes of pacing his breathing. He had no cough, no asthma, no allergies. He was a smoker. He has chronic mood disorder and anxiety. [facility] and various medications have not been effective. He was on opioid maintenance treatment from 180. Review of Systems Constitutional: Negative. HENT: Negative for congestion, rhinorrhea, sneezing, sore throat, trouble swallowing and voice change. Respiratory: Positive for chest tightness. Negative for cough and wheezing. Cardiovascular: Negative for palpitations and leg swelling. Gastrointestinal: Negative. ACTIVE PROBLEM LIST Anxiety Unspecified Mood (Affective) Disorder (Hcc) Substance Use Disorder Viral Hepatitis C Chest Pain Current Outpatient Medications Medication Sig aspirin 325 mg tablet Take 325 mg by mouth once daily. QUEtiapine (SEROQUEL) 300 mg tablet Take 300 mg by mouth three times daily. ZUBSOLV 8.6-2.1 mg subl DISSOLVE 1 (ONE) TABLET UNDER THE TONGUE EVERY DAY albuterol HFA (PROVENTIL HFA, VENTOLIN HFA) 90 mcg/actuation inhaler Inhale 2 Puffs as instructed every 6 hours as needed for wheezing/shortness of breath. No current facility-administered medications for this visit. Objective BP 130/75 (BP Site: Left Arm, BP Position: Sitting, BP Cuff Size: Large Adult) Pulse 97 Temp 36.4 C (97.6 F) (Temporal) Resp 16 Wt 98.4 kg (217 lb) SpO2 98% BMI 33.99 kg/m Physical Exam Constitutional: General: He is not in acute distress. Appearance: He is obese. He is not ill-appearing. HENT: Nose: Nose normal. Mouth/Throat: Pharynx: Oropharynx is clear. Eyes: Extraocular Movements: Extraocular movements intact. Conjunctiva/sclera: Conjunctivae normal. Cardiovascular: Rate and Rhythm: Normal rate and regular rhythm. Heart sounds: No murmur heard. No gallop. Pulmonary: Effort: No respiratory distress. Breath sounds: Rhonchi present. No wheezing or rales. Musculoskeletal: Cervical back: Neck supple. Right lower leg: No edema. Left lower leg: No edema. Lymphadenopathy: Cervical: No cervical adenopathy. Neurological: Mental Status: He is alert. ER reports reviewed. Assessment and Plan 1. Dyspnea, unspecified type - ICD9: 786.09, ICD10: R06.00 (primary diagnosis) Differential diagnosis is bronchospasm versus panic anxiety attack. Shared medical decision making was done. We agreed to empiric trial of bronchodilator. - The proper method of use, as well as anticipated side effects, of this inhaler are discussed and demonstrated to the patient. - ALBUTEROL SULFATE HFA 90 MCG/ACTUATION AEROSOL INHALER. 2. Chest pain, atypical - ICD9: 786.59, ICD10: R07.89 Reviewed negative work up. - Discuss anxiety with mental health provider. Elmer Aguirre MD documented in this encounter [facility] 10-20-2021 Note HNO ID: [id number] Author: Don Bran APRN.POWERED BRIDGE SPECIALIST Service: ? Author Type: Nurse Practitioner Type: Progress Notes Filed: 10/20/2021 1:30 PM Note Text: Nontoxic-appearing male presents urgent care chief complaint chest pain. Duration of symptoms ongoing since last Tuesday. Was seen in the ED. States normal assessment. No acute findings. Was established with primary care. Patient states chest pain resolved did not keep the follow-up appointment. Presents today due to new onset increasing chest pain. Patient rates pain 3-4 out of 10. States it feels like it is right over my heart . States he is concerned that this is something serious . With patient's presenting symptoms I recommend patient be seen in ED for further evaluation care. Patient verbalized understand agrees with plan of care. Will be seen today at [facility]. Don Bran APRN.CNP [facility] 10-20-2021 History of Present illness Narrative Nontoxic-appearing male presents urgent care chief complaint chest pain. Duration of symptoms ongoing since last Tuesday. Was seen in the ED. States normal assessment. No acute findings. Was established with primary care. Patient states chest pain resolved did not keep the follow-up appointment. Presents today due to new onset increasing chest pain. Patient rates pain 3-4 out of 10. States it feels like it is right over my heart . States he is concerned that this is something serious . With patient's presenting symptoms I recommend patient be seen in ED for further evaluation care. Patient verbalized understand agrees with plan of care. Will be seen today at [facility]. Don Bran APRN.LOIS documented in this encounter [facility]* Diagnosis Dyspnea, unspecified type- Primary Chest pain, atypical Other chest pain [facility] Diagnosis SOB (shortness of breath)- Primary Shortness of breath Chronic hepatitis C without hepatic coma (HCC) Chronic hepatitis C without mention of hepatic coma Gastroesophageal reflux disease, unspecified whether esophagitis present Chest pain, unspecified type Elevated BP without diagnosis of hypertension documented [facility]* Diagnosis Shortness of breath- Primary Chest pain, unspecified type [facility]* Diagnosis SOB (shortness of breath) Shortness of breath documented [facility]* Diagnosis SOB (shortness of breath)- Primary Shortness of breath Cigarette smoker Tobacco use disorder documented [facility] this [facility]* Diagnosis Dyspnea, unspecified type documented [facility] this [facility]* Diagnosis Gastroesophageal reflux disease, unspecified whether esophagitis present [facility]* Diagnosis Dyspnea, unspecified type documented [facility] this encounter [facility] for referral (narrative)* Outpatient Procedure (Routine) - Pending Review Specialty Diagnoses / Procedures Referred By Contac t Referred To Contact [facility] Diagnoses SOB (shortness of breath) Procedures METHACHOLINE CHALLENGE INHLJ BRNCL CHALLENGE TSTG W/HISTAM/METHACHOL Phyllis Felix MD [address] [place] [address] [place] [id number] Referral ID Status Reason Start Date Expiration Date Visits Requested Visits Authorized [id number] Pending Review Auto-Generat ed Referral 05/31/2022 06/30/2023 1 1 * Outpatient Procedure (Routine) - Closed Specialty Diagnoses / Procedures [facility]erred To [facility] Diagnoses SOB (shortness of breath) Procedures SPIROMETRY WITH DILATOR IF OBSTRUCTED BRNCDILAT RSPSE SPMTRY PRE&POST-BRNCDILAT ADMPhyllis Andrade MD [address] [place] [address] [facility] [place] [address] Referral ID Status Reason Start Date Expiration Date V isits Requested Visits Authorized [id number] Closed Auto-Generate d Referral 05/31/2022 06/30/2023 1 1 [facility] Summary Purpose Family History No Family History Records FoundNo Family History Records FoundNo Family History Records FoundNo Family History Records FoundNo Family History Records Found Advance Directives No Advanced Directives Records FoundNo Advanced Directives Records FoundNo Advanced Directives Records FoundNo Advanced Directives Records FoundNo Advanced Directives Records Found Reason for Referral Specialty Diagnoses / Procedures Referred By Oli t Referred To Contact Diagnoses Dyspnea, unspecified type Older, Katie, SENIOR TECHNICAL RECRUITER.POWERED BRIDGE SPECIALIST [address] [place] [address] Referral ID Status Reason Start Date Expiration Date Visits Re quested Visits Authorized [id number] Closed 1 1 Specialty Diagnoses / Procedures Referred By [facility] Referred To Contact Diagnoses Dyspnea, unspecified type Phyllis Felix MD [address] [place] [address] Referral ID Status Reason Start Date Expiration Date Visits Re quested Visits Authorized [id number] Closed 1 1 Additional Source Comments (unrecognized sect ion and content) No Status Records FoundNo Status Records FoundNo Status Records FoundNo Status Records FoundNo Status Records Found INFORMATION SOURCE (unrecogn ized section and content) DATE CREATED AUTHOR AUTHOR'S ORGANIZ ATION 02/25/2019 [facility] ([place]) DATE CREATED AUTHOR AUTHOR'S ORGANIZ ATION 06/07/2019 [facility] DATE CREATED AUTHOR AUTHOR'S ORGANIZ ATION 01/15/2020 [facility] DATE CREATED AUTHOR AUTHOR'S ORGANIZ ATION 07/10/2022 [facility] Source Comments (unrecognize d section and content) In the event this informatio n is protected by the Federal Confidentiality of Alcohol and Drug Abuse Patient Records regulations: The Federal rules restrict any use of the information to criminally investigate or prosecute any alcohol or drug abuse patient.[facility] the event this information is protected by the Federal Confidentiality of Alcohol and Drug Abuse Patient Records regulations: The Federal rules restrict any use of the information to criminally investigate or prosecute any alcohol or drug abuse patient.[facility] Center[facility] the event this information is protected by the Federal Confidentiality of Alcohol and Drug Abuse Patient Records regulations: The Federal rules restrict any use of the information to criminally investigate or prosecute any alcohol or drug abuse patient.[facility] Center[facility] the event this information is protected by the Federal Confidentiality of Alcohol and Drug Abuse Patient Records regulations: The Federal rules restrict any use of the information to criminally investigate or prosecute any alcohol or drug abuse patient.[facility] Center[facility] the event this information is protected by the Federal Confidentiality of Alcohol and Drug Abuse Patient Records regulations: The Federal rules restrict any use of the information to criminally investigate or prosecute any alcohol or drug abuse patient.[facility] Center[facility] the event this information is protected by the Federal Confidentiality of Alcohol and Drug Abuse Patient Records regulations: The Federal rules restrict any use of the information to criminally investigate or prosecute any alcohol or drug abuse patient.[facility] Center[facility] the event this information is protected by the Federal Confidentiality of Alcohol and Drug Abuse Patient Records regulations: The Federal rules restrict any use of the information to criminally investigate or prosecute any alcohol or drug abuse patient.[facility] Center[facility] the event this information is protected by the Federal Confidentiality of Alcohol and Drug Abuse Patient Records regulations: The Federal rules restrict any use of the information to criminally investigate or prosecute any alcohol or drug abuse patient.[facility] CenterIn the event this information is protected by the Federal Confidentiality of Alcohol and Drug Abuse Patient Records regulations: The Federal rules restrict any use of the information to criminally investigate or prosecute any alcohol or drug abuse patient.[facility] CenterIn the event this information is protected by the Federal Confidentiality of Alcohol and Drug Abuse Patient Records regulations: The Federal rules restrict any use of the information to criminally investigate or prosecute any alcohol or drug abuse patient.[facility] CenterIn the event this information is protected by the Federal Confidentiality of Alcohol and Drug Abuse Patient Records regulations: The Federal rules restrict any use of the information to criminally investigate or prosecute any alcohol or drug abuse patient.[facility] CenterIn the event this information is protected by the Federal Confidentiality of Alcohol and Drug Abuse Patient Records regulations: The Federal rules restrict any use of the information to criminally investigate or prosecute any alcohol or drug abuse patient.[facility] CenterIn the event this information is protected by the Federal Confidentiality of Alcohol and Drug Abuse Patient Records regulations: The Federal rules restrict any use of the information to criminally investigate or prosecute any alcohol or drug abuse patient.[facility] CenterIn the event this information is protected by the Federal Confidentiality of Alcohol and Drug Abuse Patient Records regulations: The Federal rules restrict any use of the information to criminally investigate or prosecute any alcohol or drug abuse patient.[facility] CenterIn the event this information is protected by the Federal Confidentiality of Alcohol and Drug Abuse Patient Records regulations: The Federal rules restrict any use of the information to criminally investigate or prosecute any alcohol or drug abuse patient.[facility] Reason for Visit (unrecogniz ed section and content) Reason Comments Breathing Problem sob, chest pain, sob attacks x months, seen in ed weds Reason Comments Follow Up Chest pain, SOB Reason Comments Spirometry Specialty Diagnoses / Procedures Referred By Contac t Referred To Contact [facility] Diagnoses SOB (shortness of breath) Procedures SPIROMETRY WITH DILATOR IF OBSTRUCTED BRNCDILAT RSPSE SPMTRY PRE&POST-BRNCDILAT ADMPhyllis Andrade MD [address] [place] [address] [facility] [address] [place] [address] Referral ID Status Reason Start Date Expiration Date V isits Requested Visits Authorized [id number] Closed Auto-Generate d Referral 05/31/2022 06/30/2023 1 1 Reason Comments Consult Shortness of Breath Reason Comments Appointment Reason Comments Refill Request Reason Comments short term disability paperwork Reason Comments Results Patient Question Reason Comments Medication Problem Breo Ellipta Reason Comments Refill Request Reason Onset Date Comments Refill Request 09/06/2022 Reason Onset Date Comments Refill Request 12/31/2022 Care Teams (unrecognized sec tion and content) Architectural Design Professor Relationship Specialty Start Date End Date Elmer Aguirre MD [address] [employer] [employer], [place] [id number] PCP - General Internal Medicine 05/26/22 Architectural Design Professor Relationship Specialty Start Date End Date Elmer Aguirre MD [address] [employer] [employer], [place] [id number] PCP - General Internal Medicine 05/26/22 Architectural Design Professor Relationship Specialty Start Date End Date Elmer Aguirre MD [address] [employer] [employer], [place] [id number] PCP - General Internal Medicine 05/26/22 Architectural Design Professor Relationship Specialty Start Date End Date Elmer Aguirre MD [address] [place] [address] PCP - General Internal Medicine 05/26/22 FOR RECORDS PERTAINING TO PATIENTS WHO ARE OR HAVE BEEN ENROLLED IN A CHEMICAL DEPENDENCY/SUBSTANCEABUSE PROGRAM, SOME INFORMATION MAY BE OMITTED. This clinical summary was aggregated from multiple sources. Caution should be exercised in using it in the provision of clinical care. This summary normalizes information from multiple sources, and as a consequence, information in this document may materially change the coding, format and clinical context of patient data. In addition, data may be omitted in some cases. CLINICAL DECISIONS SHOULD BE BASED ON THE PRIMARY CLINICAL RECORDS. [facility]. provides no warranty or guarantee of the accuracy or completeness of information in this document.
--- NOTE | 2023-05-08 17:27 | EX.ED.DYSGE1 ---
HPI History of Present Illness Chief Complaint: Cellulitis Informant: patient Narrative Narrative: Patient presents with concern for cellulitis. Patient states that about 4 days ago he started feeling just ill. He did not feel well it was nonspecific. He did develop nausea and vomiting. He states that is getting a little bit better now although. Never had diarrhea. Never had abdominal pain. He has been not eating really anything. He has been drinking some Gatorade. He states sometimes it stays down and sometimes he vomits it back up. Never seen any blood. He does have some headache and myalgias. No back pain. No urinary symptoms. He noticed today that his right leg was red. He states it was sore but he thought it was just part of his myalgias. But when he looked at his cortes he noticed that is very red. He has never had cellulitis but he has had family members with that so was concerned. When I look at his leg I note a healing scab on the dorsum of his right foot and healing area at the bridge of the foot between the foot and ankle. He states he had a Shoes that really rubbed raw. But it was getting better with not wearing the shoes and covering the area. But from this upper portion there is some erythema. I think this might be the source of bacteria causing his cellulitis. [facility] Medical History Chest pain chronic heroin use Family history of coronary artery disease Hepatitis C Substance abuse Home Medications quetiapine 300 mg tablet (Seroquel) 300 mg PO TID 12/17/20 [History Last Taken Unknown] albuterol sulfate 90 mcg/actuation aerosol inhaler 1 inh inhalation Q6H PRN breathing 04/27/22 [History Last Taken Unknown] buprenorphine 96 mg/0.27 mL solution,exten.rel.subcutaneous syringe (Brixadi Monthly) 96 mg subcut Q28D 05/08/23 [History Last Taken Unknown] cephalexin 500 mg capsule 500 mg PO Q6 #40 CAPSULES 05/08/23 [Rx Last Taken Unknown] doxycycline monohydrate 100 mg capsule 100 mg PO BID #20 CAPSULES 05/08/23 [Rx Last Taken Unknown] fluticasone 500 mcg-salmeterol 50 mcg/dose blistr powdr for inhalation (Advair Diskus) 1 inh inhalation Q12H 05/08/23 [History Last Taken Unknown] montelukast 10 mg tablet 10 mg PO DAILY 05/08/23 [History Last Taken Unknown] ondansetron 4 mg disintegrating tablet 4 mg PO Q8H PRN PRN Nausea #10 tabs 05/08/23 [Rx Last Taken Unknown] propranolol 10 mg tablet 10 mg PO TID 05/08/23 [History Last Taken Unknown] Allergy/AdvReac Type Severity Reaction Status Date / Time No Known Allergies Allergy Verified 05/08/23 16:39 Family History Mother Heart disease Surgical History Hx of hand surgery Social History household members: none Smoking Status: Current every day smoker tobacco type: cigarettes alcohol intake: never substance use type: former substance user and opiates caffeine: Yes Type: carbonated beverages Number of servings: 4 ROS ROS ED Constitutional Constitutional ED: Reports subjective; Denies fever(s) or sweats Eyes Eyes: Denies change in vision ENT ENT ED: Denies rhinorrhea Cardiovascular Cardiovascular: Denies chest pain or palpitations Respiratory/Chest Respiratory/Chest: Denies cough or dyspnea Gastrointestinal Gastrointestinal: Reports nausea and vomiting; Denies abdominal pain or diarrhea Genitourinary Genitourinary ED: Denies dysuria or hematuria Musculoskeletal Musculoskeletal: Reports myalgias Integumentary Reports rash Neurologic Neurologic: Reports headache(s) Psychiatric Psychiatric: Reports anxiety Hematologic/Lymphatic Hematologic/Lymphatic: Denies easy bleeding or easy bruising Allergic/Immunologic Allergic/Immunologic ED: Denies urticaria EXAM Physical Exam Narrative Exam Narrative: CONSTITUTIONAL: Patient is nontoxic in appearance. The patient looks comfortable. Work of breathing looks normal. He did take an ambulance and and is tachycardic but he does not look sick or toxic. HEENT: No notable trauma. Mucous membranes do look rather dry. EYES: No conjunctival injection. No proptosis. NECK:No JVD. No stridor. CARDIOVASCULAR: Tachycardic rate. Regular rhythm. No notable murmur. No JVD. Monitor shows a sinus rhythm with a rate of about 114 while I am in the room. No ectopy. RESPIRATORY: No respiratory distress. Breathing is unlabored. No wheezes. No rhonchi. No rales. No pain with a deep breath. No chest wall tenderness. Saturations are normal at 97-99% on room air showing no hypoxia. GASTROINTESTINAL: Not distended. Bowel sounds are normal. No tenderness. No guarding. No rebound. No palpable mass. No bruit is heard. GENITOURINARY: No tenderness over the bladder. No CVA tenderness. MUSCULOSKELETAL: There is a healing scab on the dorsum of the right foot over the proximal metatarsal as well as at the angle right where the foot meets the anterior cortes. From that upper area up at the cortes and a little bit medially over the leg there is erythema warmth and swelling. It does not go up to his calf. There is no tenderness in the calf or cord. No swelling above this. This does look to be consistent with cellulitis. NEUROLOGICAL: Patient is alert and appropriate. No focal deficit noted. SKIN: See above regarding right cortes. No diaphoresis. PSYCHIATRIC: Patient is calm. Mood is appropriate. Const Vital Signs: 05/08/23 16:37 05/08/23 16:42 05/08/23 17:39 Temperature 98.9 F 98.3 F Temperature Source Oral Oral Pulse Rate 121 H 99 Respiratory Rate 20 H 19 H Respiratory Effort Normal Non-Labored Respiratory Pattern Normal Blood Pressure 147/90 H 135/80 H Blood Pressure Mean 109 98 Pulse Ox 97 94 Oxygen Delivery Method Room Air Room Air 05/08/23 18:39 05/08/23 19:37 Temperature 98.0 F 98 F Temperature Source Oral Oral Pulse Rate 88 75 Respiratory Rate 17 17 Respiratory Effort Respiratory Pattern Blood Pressure 124/82 H 119/72 Blood Pressure Mean 96 87 Pulse Ox 95 95 Oxygen Delivery Method Room Air Room Air MDM MDM MDM Narrative Medical decision making narrative: Patient states his nausea is improving. I think all of his symptoms are likely due to the cellulitis. But it is possible he has a viral illness. I will do viral studies along with blood work. I will get him started on antibiotics. Will give him meds for pain nausea and IV fluids as I think clinically he is dehydrated. CBC shows normal white count with mild anemia. Basic metabolic panel shows minimal elevation of glucose at 151. This does not need acute treatment and can be rechecked. Mild elevation of the BUN. He was given IV fluids here. Liver function test shows no acute abnormalities. Minimal elevation of the alkaline phosphatase. Lactic acid is normal at 0.8. Viral studies show negative influenza COVID and RSV. Patient is rechecked. He is feeling much better. Pain is down. He is not nauseated. His heart rate is down. He would like notes for his work and [employer]. We will get him on antibiotics. I will get him meds for nausea. We discussed reasons to return. He should keep this area warm but not a heating pad. He can just cover with a blanket. He should try to elevate is much as possible. But he does not need to be on bedrest. He should get up and move around. Lab Data Attestation: I reviewed the patient's lab results. Labs: Laboratory Results - last 24 hr 05/08/23 05/08/23 14:35 17:35 WBC 8.4 RBC 4.31 L Hgb 12.6 L Hct 37.9 L MCV 87.9 MCH 29.2 MCHC 33.2 RDW Std Deviation 45.7 H RDW Coeff of Mook 14.4 Plt Count 167 MPV 11.7 Immature Gran % (Auto) 0.500 Neut % (Auto) 66.1 Lymph % (Auto) 18.1 L [place] % (Auto) 14.4 H Eos % (Auto) 0.5 Baso % (Auto) 0.4 Absolute Neuts (auto) 5.6 Absolute Lymphs (auto) 1.53 Nucleated RBC % 0 Sodium 137 Potassium 3.4 L Chloride 103 Carbon Dioxide 26.0 Anion Gap 8 BUN 27 H Creatinine 0.90 Estim Creat Clear Calc 124.63 Est GFR (MDRD) Af Amer 120 Est GFR (MDRD) Non-Af 99 BUN/Creatinine Ratio 29.8 H Glucose 151 H Lactic Acid 0.8 Calcium 9.0 Total Bilirubin 0.70 AST 27 ALT 29 Alkaline Phosphatase 119 H Total Protein 7.7 Albumin 3.2 Globulin 4.5 H Albumin/Globulin Ratio 0.7 L Discharge Plan Triage Chief Complaint: Cellulitis ED Provider: Ervin Croft Dx/Rx/DC Orders Clinical Impression: Cellulitis of leg, right, Nausea & vomiting Instructions: ED Cellulitis Prescriptions: New doxycycline monohydrate 100 mg capsule 100 mg PO BID Qty: 20 0RF cephalexin [cephalexin] 500 mg capsule 500 mg PO Q6 Qty: 40 0RF ondansetron [ondansetron] 4 mg tablet,disintegrating 4 mg PO Q8H PRN PRN (Reason: Nausea) Qty: 10 0RF No Action quetiapine [Seroquel] 300 mg tablet 300 mg PO TID Patient Comments: Take 1 (ONE) tab BY MOUTH EVERY MORNING and 2 (TWO) tabs BY MOUTH EVERY DAY AT BEDTIME albuterol sulfate 90 mcg/actuation HFA aerosol inhaler 1 inh INHALATION Q6H PRN (Reason: breathing) Patient Comments: Inhale 2 Puffs as instructed every 6 hours as needed for wheezing/shortness of breath. propranolol 10 mg tablet 10 mg PO TID Patient Comments: Take 1-3 TABLETS BY MOUTH daily NEEDED for anxiety montelukast 10 mg tablet 10 mg PO DAILY Patient Comments: TAKE 1 TABLET BY MOUTH EVERY DAY AT BEDTIME fluticasone propion-salmeterol [Advair Diskus] 500-50 mcg/dose blister with device 1 inh INHALATION Q12H Patient Comments: Inhale 1 Puff as instructed two times a day. RINSE AND GARGLE MOUTH WITH WATER AFTER EACH USE. Brixadi 96 mg/0.27 mL solution, extended rel syringe 96 mg SUBCUT Q28D Stand Alone Forms: ED Work / School Excuse Primary Care Provider: Care Physician,No Primary Referrals: Elmer Aguirre MD [Med Staff - [employer]] - 3-5 Days Care Physician,No Primary [Primary Care Provider] - Activity Restrictions/Additional Instructions: Keep leg elevated is much as possible. But do not be on bedrest. Disposition Disposition: Home, Self Care
[2023-05-08 17:39] VITALS: BP 135/80; PULSE 99; RESP 19; TEMP 36.8; O2SAT 94
[2023-05-08] MEDS: Morphine 4 MG/ML Syringe IV (17:39)
[2023-05-08] MEDS: 0.9% Normal Saline (1000mL) 1,000 ML 1000 ML IV ×2 (17:39→19:38)
[2023-05-08] MEDS: Ondansetron 4 MG/2 ML Vial IV (17:39)
[2023-05-08] MEDS: Vancomycin HCl 1,500 MG in 0.9% Normal Saline (500mL Bag) 500 ML 250 MG IV (17:44)
[2023-05-08 17:59] LABS: Absolute Lymphocyte Count 1.53 X10^3/uL (0.83-4.51); Absolute Neutrophil Count 5.6 X10^3/uL (2.0-7.7); Basophil# 0.03 X10^3/uL; Basophil% 0.4 % (0-1); Eosinophil# 0.04 X10^3/uL; Eosinophils% 0.5 % (0-5); Hematocrit 37.9 % (40-54); Hemoglobin 12.6 g/dL (13.0-16.5); Lymphocyte # 1.53 X10^3/ul (0.83-4.51); Lymphocyte % 18.1 % (19-41); Mean Corp Hgb Conc 33.2 g/dL (32-36); Mean Corpuscular Hgb 29.2 pg (27.0-32.0); Mean Corpuscular Volume 87.9 fL (80-94); Mean Platelet Vol. 11.7 fl (6.2-12.0); Monocyte# 1.21 X10^3/uL; Monocyte% 14.4 % (0-10); NRBC Flagged by Analyzer 0 % (0-5); Neutrophil # 5.58 X10^3/uL (2.7-7.7); Neutrophil % 66.1 % (47-70); Platelet Count 167 K/mm3 (150-450); RBC Distribution Width CV 14.4 % (11.6-14.6); RBC Distribution Width SD 45.7 fl (35.1-43.9); Red Blood Count 4.31 M/mm3 (4.6-6.2); White Blood Count 8.4 K/mm3 (4.4-11.0)
[2023-05-08 18:15] LABS: ALB/GLOB Ratio 0.7 RATIO (0.9-2.4); AST(SGOT) 27 U/L (15-37); Alanine Aminotransfer ALT/SGPT 29 U/L (16-61); Albumin, Serum 3.2 g/dL (3.2-5.0); Alkaline Phosphatase 119 U/L (45-117); Anion Gap 8 (5-15); BUN 27 mg/dL (7-18); BUN/Creat Ratio 29.8 RATIO (10-20); Chloride 103 mmol/L (98-107); EST Glomerular Filtration Rate 99 mL/min (>60); Est Glom Filt Rate - Afr Amer 120 mL/min (>60); Estimated Creatinine Clearance 124.63 ml/min; Globulin 4.5 g/dL (2.2-4.2); Glucose 151 mg/dL (74-106); Potassium 3.4 mmol/L (3.5-5.1); Protein, Total 7.7 g/dL (6.4-8.2); Sodium Level 137 mmol/L (136-145)
[2023-05-08 18:39] VITALS: BP 124/82; PULSE 88; RESP 17; TEMP 36.7; O2SAT 95
[2023-05-08 18:40] LABS: Lactic Acid 0.8 mmol/L (0.4-1.9)
[2023-05-08 19:37] VITALS: BP 119/72; PULSE 75; RESP 17; TEMP 36.6; O2SAT 95
[2023-05-08 21:11] VITALS: BP 122/78; PULSE 91; RESP 17; O2SAT 95
== END 2023-05-08 21:12 | disposition home or self-care (01) ==
PROVIDERS: Emergency Provider Emergency Medicine; Visit Provider Emergency Medicine
DX: L03.115 Cellulitis of right lower limb (principal); R11.2 Nausea with vomiting, unspecified; Z79.899 Other long term (current) drug therapy; Z79.51 Long term (current) use of inhaled steroids
CPT/HCPCS: 80053; 83605; 85025; 87040; 87631; 96365; 96366; 96375; 99285; J7030; J7040; J7050; A4216; J2405

== ENCOUNTER 2023-11-24 14:52 | Emergency (ER) | payer MEDICAID, SELFPAY ==
[2023-11-24 14:52] VITALS: BP 148/98; PULSE 104; RESP 16; TEMP 36.1; O2SAT 97; BMI 31.3
--- NOTE | 2023-11-24 14:59 | EDS_ITS ---
HPI HPI - URI History of Present Illness Chief Complaint: Ear Problem Informant: patient Onset/Context/Timing Onset: Days (3) Context: Gradual Onset Timing: Continuous Quality: muffled hearing w/o pain Location: L ear Current Severity: Moderate Maximum Severity: Moderate Worsened by: - (nothing) Relieved by: - (nothing - tried couple doses of oral decongestant) Associated Symptoms Associated Symptoms: Positive for Nasal Congestion and Nonproductive cough Narrative Narrative: 37-year-old male presenting with difficulty hearing out of his left ear gradual in onset for the last 3 days, he states recently he had nasal congestion, some rhinorrhea, minor cough, I felt like maybe it was allergies and he does have seasonal allergies from time to time that he deals with. No fevers or chills like he had a cold. However as that was getting better this was presenting itself and getting worse. Denies any earache or otorrhea. He states when he t alks he can hear and vibrating in his left ear. ROS ROS ED Constitutional Constitutional ED: Denies chills or fever(s) Eyes Eyes: Denies change in vision or diplopia ENT ENT ED: Reports as per HPI, nasal congestion and rhinorrhea; Denies ear pain, sinus pain, sinus pressure, sore throat or vertigo Cardiovascular Cardiovascular: Denies chest pain Respiratory/Chest Respiratory/Chest: Reports cough; Denies dyspnea Gastrointestinal Gastrointestinal: Denies nausea or vomiting Integumentary Denies rash Neurologic Neurologic: Denies headache(s), paresthesias or weakness [facility] Medical History Chest pain chronic heroin use Family history of coronary artery disease Hepatitis C Substance abuse Home Medications ?Medication ?Instructions ?Recorded ?Last Taken ?Type quetiapine 300 mg tablet (Seroquel) 300 mg PO TID 12/17/20 Unknown History albuterol sulfate 90 mcg/actuation 1 inh inhalation Q6H PRN breathing 04/27/22 Unknown History aerosol inhaler buprenorphine 96 mg/0.27 mL 96 mg subcut Q28D 05/08/23 Unknown History solution,exten.rel.subcutaneous syringe (Brixadi Monthly) cephalexin 500 mg capsule 500 mg PO Q6 #40 CAPSULES 05/08/23 Unknown Rx doxycycline monohydrate 100 mg 100 mg PO BID #20 CAPSULES 05/08/23 Unknown Rx capsule fluticasone 500 mcg-salmeterol 50 1 inh inhalation Q12H 05/08/23 Unknown History mcg/dose blistr powdr for inhalation (Advair Diskus) montelukast 10 mg tablet 10 mg PO DAILY 05/08/23 Unknown History ondansetron 4 mg disintegrating 4 mg PO Q8H PRN PRN Nausea #10 tabs 05/08/23 Unknown Rx tablet propranolol 10 mg tablet 10 mg PO TID 05/08/23 Unknown History fluticasone furoate 27.5 2 spray intranasal DAILY #1 BOTTLE 11/24/23 Unknown Rx mcg/actuation nasal spray,suspension Allergy/AdvReac Type Severity Reaction Status Date / Time No Known Allergies Allergy Verified 11/24/23 14:53 Family History Mother Heart disease Surgical History Hx of hand surgery Social History household members: none Smoking Status: Current every day smoker tobacco type: cigarettes alcohol intake: never substance use type: former substance user and opiates caffeine: Yes Type: carbonated beverages Number of servings: 4 EXAM Physical Exam Const Vital Signs: 11/24/23 14:52 Temperature 96.9 F L Temperature Source Temporal Pulse Rate 104 H Respiratory Rate 16 Blood Pressure 148/98 H Blood Pressure Mean 114 Pulse Ox 97 Oxygen Delivery Method Room Air Positive well nourished and well developed General Appearance ED: well developed and NAD HEENT Reports moist mucous membranes HEENT Narrative: EAC and TM bilaterally normal. No significant cerumen in the left ear. No discomfort with manipulation of the pinna or the tragus. There may be an effusion difficult to tell there is no air-fluid level or bubbles present, there is no sign of bullous myringitis, otorrhea, TM perforation, or erythema. Face and Sinus: Negative for sinus tenderness Throat: posterior oropharynx normal Eyes PERRL and EOMs intact bilaterally Neck no lymphadenopathy, supple and no meningeal signs Resp normal respiratory effort Neuro oriented x3, CN's II-XII intact bilaterally, no sensory deficits noted and gait normal Motor Exam: strength 5/5 throughout Psych mental status grossly normal Skin Lesions: no lesions Rashes: no rashes MDM MDM MDM Narrative Medical decision making narrative: And he likely has a serous effusion without signs of otitis media. I agree with the oral decongestant he has already tried in addition to a nasal decongestant and nasal steroids which may have other benefit from given instructions for both. Discharge Plan Triage Chief Complaint: Ear Problem ED Provider: Tera Yu Dx/Rx/DC Orders Clinical Impression: Acute effusion of left ear Instructions: ED Earache Without Infection (Adult) Prescriptions: New fluticasone furoate 27.5 mcg/actuation spray,suspension 2 spray intranasal DAILY Qty: 1 0RF Rx Instructions: into each nostril No Action quetiapine [Seroquel] 300 mg tablet 300 mg PO TID Patient Comments: Take 1 (ONE) tab BY MOUTH EVERY MORNING and 2 (TWO) tabs BY MOUTH EVERY DAY AT BEDTIME albuterol sulfate 90 mcg/actuation HFA aerosol inhaler 1 inh INHALATION Q6H PRN (Reason: breathing) Patient Comments: Inhale 2 Puffs as instructed every 6 hours as needed for wheezing/shortness of breath. propranolol 10 mg tablet 10 mg PO TID Patient Comments: Take 1-3 TABLETS BY MOUTH daily NEEDED for anxiety montelukast 10 mg tablet 10 mg PO DAILY Patient Comments: TAKE 1 TABLET BY MOUTH EVERY DAY AT BEDTIME fluticasone propion-salmeterol [Advair Diskus] 500-50 mcg/dose blister with device 1 inh INHALATION Q12H Patient Comments: Inhale 1 Puff as instructed two times a day. RINSE AND GARGLE MOUTH WITH WATER AFTER EACH USE. Brixadi 96 mg/0.27 mL solution, extended rel syringe 96 mg SUBCUT Q28D doxycycline monohydrate 100 mg capsule 100 mg PO BID Qty: 20 0RF cephalexin [cephalexin] 500 mg capsule 500 mg PO Q6 Qty: 40 0RF ondansetron [ondansetron] 4 mg tablet,disintegrating 4 mg PO Q8H PRN PRN (Reason: Nausea) Qty: 10 0RF Primary Care Provider: Care Physician,No Primary Referrals: Doctor,Your [Non-Staff] - 1 Week if not improving Activity Restrictions/Additional Instructions: In addition to trying the oral decongestant like Sudafed, also obtain a nasal decongestant such as oxymetazoline or phenylephrine nasal (any brand), and use twice daily for up to 3 days at a time. Print Language: Greek Disposition Disposition: Home, Self Care
== END 2023-11-24 15:15 | disposition home or self-care (01) ==
PROVIDERS: Emergency Provider Emergency Medicine; Visit Provider Emergency Medicine
DX: H66.92 Otitis media, unspecified, left ear (principal)
CPT/HCPCS: 99282

== ENCOUNTER → 2024-03-27 | Outpatient (CLI) | payer MEDICAID, SELFPAY ==
[2024-03-27 13:27] LABS: ALB/GLOB Ratio 0.9 RATIO (0.9-2.4); AST(SGOT) 43 U/L (15-37); Alanine Aminotransfer ALT/SGPT 61 U/L (16-61); Albumin, Serum 3.9 g/dL (3.2-5.0); Alkaline Phosphatase 125 U/L (45-117); Anion Gap 6 (5-15); BUN 13 mg/dL (7-18); BUN/Creat Ratio 15.2 RATIO (10-20); Calcium,Total 8.6 mg/dL (8.5-10.1); Chloride 104 mmol/L (98-107); Creatinine, Serum 0.85 mg/dL (0.70-1.30); EST Glomerular Filtration Rate 106 mL/min (>60); Est Glom Filt Rate - Afr Amer 128 mL/min (>60); Globulin 4.2 g/dL (2.2-4.2); Glucose 221 mg/dL (74-106); Protein, Total 8.1 g/dL (6.4-8.2); Sodium Level 134 mmol/L (136-145)
[2024-03-27 13:48] LABS: HIV - WCH Non-Reactive (Nonreactive); Hepatitis B Surface Antibody Reactive; Hepatitis B Surface Antigen Non-Reactive (Nonreactive)
[2024-03-28 22:06] LABS: HCV Quant. RNA PCR See Final Results IU/mL (.); HCV RNA-PCR, QUANT 25400000 IU/mL (.); HCV log 10 7.405 (.); Hepatitis A AB, Total Negative (Negative)
== END | disposition home or self-care (01) ==
LOC: LAB 11:51
PROVIDERS: Referring Provider Family Medicine; Visit Provider Family Medicine
DX: F11.20 Opioid dependence, uncomplicated (principal)
CPT/HCPCS: 36415; 80053; 86703; 86706; 86708; 87340; 87522

== ENCOUNTER 2024-05-27 14:09 | Emergency (ER) | payer MEDICAID, SELFPAY ==
[2024-05-27 14:09] VITALS: BP 152/91; PULSE 99; RESP 16; TEMP 36.8; O2SAT 99; BMI 32.9
--- NOTE | 2024-05-27 14:54 | EDS_ITS ---
HPI <TALITA Tucker - Last Filed: 05/27/24 15:30> History of Present Illness Chief Complaint: Dental Narrative Narrative: Patient is a 38-year-old male with history of past drug abuse, hepatitis C, presenting to the emergency department for a dental abscess to the left lower jaw. Pay states he has poor dentition, multiple teeth are breaking off. He does have an appointment with a dentist however is not till next week. He denies any fever chills nausea or vomiting. Here for evaluation. [facility] <TALITA Tucker - Last Filed: 05/27/24 15:30> [facility] Medical History Chest pain chronic heroin use Family history of coronary artery disease Hepatitis C Substance abuse Home Medications ?Medication ?Instructions ?Recorded ?Last Taken ?Type quetiapine 300 mg tablet (Seroquel) 300 mg PO TID 11/27 05/18 Unknown History albuterol sulfate 90 mcg/actuation 1 inh inhalation Q6 H PRN breathing 04/27/22 Unknown History aerosol inhaler buprenorphine 96 mg/0.27 mL 96 mg subcut Q28D 05/08/23 Unknown History solution,exten.rel.subcutaneous syringe (Brixadi Monthly) cephalexin 500 mg capsule 500 mg PO Q6 #40 CAPSULES Unknown Rx doxycycline monohydrate 100 mg 100 mg PO BID #20 CAPSU LES 05/08/23 Unknown Rx capsule fluticasone 500 mcg-salmeterol 50 1 inh inhalation Q12 H 05/08/23 Unknown History mcg/dose blistr powdr for inhalation (Advair Diskus) montelukast 10 mg tablet 10 mg PO DAILY 05/08/23 Unkn own History ondansetron 4 mg disintegrating 4 mg PO Q8H PRN PRN Na usea #10 tabs 05/08/23 Unknown Rx tablet propranolol 10 mg tablet 10 mg PO TID 05/08/23 Unknow n History fluticasone furoate 27.5 2 spray intranasal DAILY #1 BOTTLE 11/24/23 Unknown Rx mcg/actuation nasal spray,suspension amoxicillin 875 mg-potassium 1 tab PO BID 10 days #20 tabs 05/27/24 Unknown Rx clavulanate 125 mg tablet Allergy/AdvReac Type Severity Reaction Status Date / Time No Known Allergies Allergy Verified 05/27/24 14:10 Family History Mother Heart disease Surgical History Hx of hand surgery Social History household members: none Smoking Status: Current every day smoker tobacco type: cigarettes alcohol intake: never substance use type: former substance user and opiates caffeine: Yes Type: carbonated beverages Number of servings: 4 ROS <TALITA Tucker - Last Filed: 05/27/24 15:30> ROS ED ROS Narrative Constitutional: Negative for fever, chills, weight loss, weakness Eyes: Negative for vision loss, vision change, double vision ENT: Negative for any sore throat, ear pain, congestion. Positive for left l ower jaw pain, left gumline pain Cardiovascular: Negative for any chest pain, tightness, palpitations Respiratory: Negative for any cough, sputum production, hemoptysis, dyspnea, dyspnea on exertion, orthopnea Gastrointestinal: Negative for any abdominal pain, nausea, vomiting, diarrhea, constipation, blood in stool, blood in vomit : Negative for any urinary frequency, dysuria, retention, blood in urine Muscle skeletal: Negative for any neck pain, back pain Neurological: Negative for any headache, syncope, dizziness Skin: Negative for any rashes, itching, abrasions, lacerations Psychiatric: Negative for any depression, anxiety, stress, suicidal ideation, homicidal ideation Hematologic: Negative for any excessive bruising, easy bleeding EXAM <TALITA Tucker - Last Filed: 05/27/24 15:30> Physical Exam Narrative Exam Narrative: Vital signs reviewed. HEET: Head normocephalic atraumatic, TMs clear bilaterally. Posterior pharynx is clear, moist mucous membranes. Nares clear bilaterally. Patient has no trismus. Patient does have poor dentition, multiple fractured teeth in different levels of decay. Patient to the left lower jaw does have some fluctuance to the gumline. This could be possible abscess. Neck: Supple with no lymphadenopathy or tenderness. No signs of meningismus. Cardiac: Regular rate and rhythm no murmurs gallops or rubs, equal peripheral pulses bilaterally. Respiratory: Lungs clear to auscultation bilaterally. No chest tenderness. Abdomen: Soft, nontender, nondistended. No abdominal bruit or pulsatile masses. No hepatosplenomegaly Extremities: No peripheral edema, no signs of gross trauma or deformity. Active full range of motion of all extremities. Neuro: Cranial nerves II through XII intact, no focal neurological deficits. Skin: Clean dry and intact with no rash, purpura, petechiae, vesicles or pustules. Backs/flank: No CVA tenderness, no midline spinal tenderness, no deformity. Psych: Normal mood and affect. No SI, HI or acute psychosis. Const Vital Signs: 05/27/24 14:09 05/27/24 15:41 Temperature 98.2 F 98.4 F Temperature Source Oral Pulse Rate 99 88 Respiratory Rate 16 18 Blood Pressure 152/91 H 154/87 H Blood Pressure Mean 111 109 Pulse Ox 99 100 Oxygen Delivery Method Room Air Positive well nourished and well developed General Appearance ED: well developed <Dr. Jaycob Donovan DO - Last Filed: 05/27/24 15:52> Physical Exam Const Vital Signs: 05/27/24 14:09 05/27/24 15:41 Temperature 98.2 F 98.4 F Temperature Source Oral Pulse Rate 99 88 Respiratory Rate 16 18 Blood Pressure 152/91 H 154/87 H Blood Pressure Mean 111 109 Pulse Ox 99 100 Oxygen Delivery Method Room Air MDM <TALITA Tucker - Last Filed: 05/27/24 15:30> [facility] Treatment and Re-Evaluation :: Differential diagnosis includes however is not limited to: Irreversible pulpitis, fractured tooth, dental abscess, alexei wigs angina Patient appears generally well, vital signs are stable, patient is nontoxic- appearing. Presenting to the emergency department with complaints of pain to the left lower jaw. There is some fluctuance just below the first and second bicuspid on the left side. I do believe this could benefit from draining. Patient will be given Cetacaine spray, I will then use a 18-gauge needle for I&D. I was able to use an 18-gauge needle, with 1 insertion, was able to get copious amounts of yellow drainage. Was able to use a Q-tip to get the remainder out. Patient is able to all swish with water and spit out. Patient does feel immediate relief. Patient be placed on Augmentin twice a day for 10 days. He does have an appointment this upcoming week with a dentist. He is happy with the plan of care, all questions answered, stable for discharge. <Dr. Jaycob Donovan, DO - Last Filed: 05/27/24 15:52> [facility] MDM Narrative Medical decision making narrative: Supervisory Physician Note Patient was seen and examined with the Advanced Practice Provider. Nursing notes and vital signs have been reviewed. Pertinent old records have been reviewed. I agree with the essential elements of the HINA's history, physical exam, assessment, and plan. The differential diagnosis and management options were discussed with the HINA. I participated in determining and agree with the management, procedures, final impression and disposition as documented. See changes noted by me. Please see addendum or separate note for any additional details. 38-year-old male with past medical history of drug abuse, hepatitis C, diabetes on metformin presents for left lower dental pain. Tooth broke multiple weeks ago. Pain started several days ago. Sugars controlled. Denies any fever, chills, nausea, vomiting, shortness of breath, chest pain, difficulty tolerating surgery secretions, swelling, neck pain or stiffness. Has dental appointment scheduled. Good p.o. intake. Gen: A&O x3, NAD Head: Normocephalic, atraumatic Eyes: No sclera icterus, conjunctiva clear, PERRL, EOMI ENT: TMs clear BL, moist mucous membranes, posterior oropharynx unremarkable without swelling, uvula midline, no submandibular swelling/Laura angina, tolerating secretions, normal phonation, multiple fractured teeth with multiple dental caries, patient has a dental abscess to the left lower gumline-tender to palpation Neck: Trachea midline, No JVD, Full ROM, No meningismus or swelling CV: RRR, no murmurs, no peripheral edema Resp: Lungs CTA BL, no w/r/c Neuro: Alert, oriented, grossly intact, sensation intact Psych: Cooperative, appropriate mood and affect Patient has dental abscess secondary to multiple broken teeth and dental caries. No systemic symptoms. Nontoxic-appearing. Afebrile. Do not think labs are needed at this time. Patient will benefit from incision and drainage and discharged home on antibiotics. Follow-up with the dentist. Patient's incision and drainage was performed by [facility]. See procedure note. Patient tolerated procedure well. Patient discharged home on Augmentin. Educated to monitor sugars closely at home. Return precautions explained. Impression: 1. Left dental abscess 2. Multiple fractured teeth 3. Poor dentition Discharge Plan Triage Chief Complaint: Dental ED Midlevel Provider: Femi Cortes ED Provider: Jaycob Donovan Dx/Rx/DC Orders Clinical Impression: Fracture of tooth, Dental abscess Instructions: Dental Abscess, ED Dental Abscess Prescriptions: New amoxicillin-pot clavulanate 875-125 mg tablet 1 tab PO BID 10 Days Qty: 20 0RF No Action quetiapine [Seroquel] 300 mg tablet 300 mg PO TID Patient Comments: Take 1 (ONE) tab BY MOUTH EVERY MORNING and 2 (TWO) tabs BY MOUTH EVERY DAY AT BEDTIME albuterol sulfate 90 mcg/actuation HFA aerosol inhaler 1 inh INHALATION Q6H PRN (Reason: breathing) Patient Comments: Inhale 2 Puffs as instructed every 6 hours as needed for wheezing/shortness of breath. propranolol 10 mg tablet 10 mg PO TID Patient Comments: Take 1-3 TABLETS BY MOUTH daily NEEDED for anxiety montelukast 10 mg tablet 10 mg PO DAILY Patient Comments: TAKE 1 TABLET BY MOUTH EVERY DAY AT BEDTIME fluticasone propion-salmeterol [Advair Diskus] 500-50 mcg/dose blister with device 1 inh INHALATION Q12H Patient Comments: Inhale 1 Puff as instructed two times a day. RINSE AND GARGLE MOUTH WITH WATER AFTER EACH USE. Brixadi 96 mg/0.27 mL solution, extended rel syringe 96 mg SUBCUT Q28D doxycycline monohydrate 100 mg capsule 100 mg PO BID Qty: 20 0RF cephalexin [cephalexin] 500 mg capsule 500 mg PO Q6 Qty: 40 0RF ondansetron [ondansetron] 4 mg tablet,disintegrating 4 mg PO Q8H PRN PRN (Reason: Nausea) Qty: 10 0RF fluticasone furoate 27.5 mcg/actuation spray,suspension 2 spray intranasal DAILY Qty: 1 0RF Rx Instructions: into each nostril Primary Care Provider: Jarad Mistry Referrals: Jarad Mistry, CHRISTIN [Primary Care Provider] - Activity Restrictions/Additional Instructions: You may use warm salt water swish and spits. Continue to follow-up with the dentist. Print Language: Mauritanian Disposition Disposition: Home, Self Care Discharge Date/Time: 05/27/24 15:41
[2024-05-27] MEDS: Tetracaine/Benzocaine/Butamben 1 APPLIC TOPICAL (15:16)
[2024-05-27] MEDS: Amox/Clavulanate 875 MG Tablet PO (15:39)
[2024-05-27 15:41] VITALS: BP 154/87; PULSE 88; RESP 18; TEMP 36.9; O2SAT 100
== END 2024-05-27 15:41 | disposition home or self-care (01) ==
PROVIDERS: Emergency Provider Surgery; PCP Podiatrist; Visit Provider Surgery
DX: S02.5XXA Fracture of tooth (traumatic), initial encounter for closed fracture (principal); E11.9 Type 2 diabetes mellitus without complications; Z79.84 Long term (current) use of oral hypoglycemic drugs; F17.210 Nicotine dependence, cigarettes, uncomplicated; K04.7 Periapical abscess without sinus
CPT/HCPCS: 99282

== ENCOUNTER 2025-01-15 10:02 | Emergency (ER) | payer MEDICAID, SELFPAY ==
[2025-01-15 10:02] VITALS: BP 134/78; PULSE 68; RESP 18; TEMP 36.6; O2SAT 98; BMI 28.1
[2025-01-15 10:32] VITALS: BP 134/78; PULSE 68; RESP 18; TEMP 36.6; O2SAT 98
== END 2025-01-15 10:37 | disposition home or self-care (01) ==
LOC: ED 10:33
PROVIDERS: Emergency Provider Emergency Medicine; PCP Internal Medicine; Visit Provider Emergency Medicine
DX: L23.7 Allergic contact dermatitis due to plants, except food (principal); E11.9 Type 2 diabetes mellitus without complications; R22.0 Localized swelling, mass and lump, head; I10 Essential (primary) hypertension; F17.210 Nicotine dependence, cigarettes, uncomplicated; Z79.899 Other long term (current) drug therapy
CPT/HCPCS: 99282